=== PATIENT | male | born 1960 | race Two or more races ===

== ENCOUNTER 2024-02-22 10:23 | Inpatient (IN) | payer MEDICAID, SELFPAY ==
--- NOTE | 2024-02-22 10:40 | XR_ITS ---
Examination: Venous duplex lower extremity sonogram, bilateral. Date and time of exam: February 22, 2024 1233 hours INDICATIONS: Bilateral leg swelling and pain several months Technique: Multiple sonographic images of the deep venous system have been obtained. B-mode/2-D grayscale imaging of vascular structures and Doppler spectral analysis (waveforms) and color performed Both legs are examined. Findings: Deep venous systems do not demonstrate abnormal echogenicity. All visualized deep veins exhibit compressibility. All visualized deep veins exhibit augmentation. Impression: Negative for deep vein thrombosis
--- NOTE | 2024-02-22 10:40 | XR_ITS ---
Examination: Ultrasound-guided paracentesis Abdominal sonogram limited Date and time of exam: February 22, 2024 1208 hours INDICATIONS: Cirrhosis, increasing ascites and abdominal distention this week Informed consent provided. A timeout was completed verifying correct patient, procedure, site, positioning, and special adequate movement if applicable. Technique: Multiple sonographic images of the abdomen have been obtained. Appropriate area for paracentesis was marked. Local anesthesia is obtained with 1% lidocaine. Yueh catheter is successfully introduced. Findings: Abdominal sonographic images demonstrate sufficient ascitic fluid for paracentesis. After placing the Yueh catheter, 7200 cc of fluid were successfully removed. During and after completion of the procedure the patient appear in satisfactory and stable condition with no complications observed. Estimated blood loss 0 cc Impression: Abdominal ascites Successful ultrasound-guided paracentesis as described above
--- NOTE | 2024-02-22 10:41 | XR_ITS ---
Examination: PA lateral chest 2 views TECHNIQUE: Upright PA lateral chest 2 views Exam date and time: February 22, 2024 1057 hours INDICATIONS: Onset SOB today. FINDINGS: Normal heart size Lungs are clear. Moderate thoracic spondylosis IMPRESSION: No active disease
--- NOTE | 2024-02-22 10:41 | PD.EDRME ---
Rapid Medical Screening Exam RME Arrival date/time: 02/22/24 10:23 63-year-old male who admits to drinking alcohol daily presents to the emergency department complaint of bilateral lower extremity swelling and abdominal swelling patient was seen by his PCP to give him a course of Lasix he reports he still has swelling. Chief Complaint: General Adult/Misc Complain
[2024-02-22 10:42] VITALS: BP 132/80; PULSE 97; RESP 20; TEMP 36.7; O2SAT 98; BMI 28.8
[2024-02-22 11:26] LABS: Basophils # (Auto) 0.1 Thou/mm3 (0.0-0.2); Basophils % (Auto) 1 % (0-2.5); Eosinophils # (Auto) 0.1 Thou/mm3 (0.0-0.5); Eosinophils % (Auto) 1 % (0-10); Hematocrit 38.3 % (41.0-53.0); Hemoglobin 13.4 g/dL (13.5-16.0); Immature Granulocytes % (Auto) 1 % (0-0); Immature Granulocytes Auto 0.07 Thou/mm3 (0.00-0.00); Lymphocytes # (Auto) 0.8 Thou/mm3 (1.0-4.8); Lymphocytes % (Auto) 8 % (10-50); Mean Corpuscular Hemoglobin 31.4 pg (25.0-35.0); Mean Corpuscular Volume 90 fL (80-100); Monocytes # (Auto) 1.1 Thou/mm3 (0.0-0.8); Monocytes % (Auto) 11 % (0-12); Neutrophils # (Auto) 7.8 Thou/mm3 (1.8-7.7); Neutrophils % (Auto) 79 % (37-80); Nucleated Red Blood Cell % 0 /100 WBC (0); Platelet Count 176 Thou/mm3 (140-440); RDW Standard Deviation 47.6 fL (35.1-43.9); Red Blood Count 4.27 Miln/mm3 (4.50-5.90)
[2024-02-22 11:39] LABS: INR 1.3 (0.9-1.3); Partial Thromboplastin Time 30.8 Seconds (22.0-36.0); Prothrombin Time 13.5 Seconds (9.0-12.2)
[2024-02-22 11:50] LABS: B-Type Natriuretic Peptide 90 pg/mL (0-100)
[2024-02-22 12:04] LABS: Alanine Aminotransferase 49 U/L (10-49); Albumin, Serum 3.5 gm/dL (3.4-4.8); Albumin/Globulin Ratio 1.2 (1.2-2.2); Alkaline Phosphatase 176 U/L (46-116); Anion Gap 7 (7-16); Aspartate Amino Transferase 97 U/L (0-34); BUN/Creatinine Ratio 13 Ratio (12-20); Bilirubin,Total 3.5 mg/dL (0.3-1.2); Blood Urea Nitrogen < 5 mg/dL (9-23); Calcium 8.4 mg/dL (8.3-10.6); Calcium (Corrected) 8.8 mg/dL (8.5-10.1); Carbon Dioxide 25.8 mMol/L (20.0-31.0); Chloride 86 mMol/L (98-107); Creatinine (Component) 0.4 mg/dL (0.6-1.3); Estimated Creatinine Clearance 194.1 mL/min (>60); Globulin 2.9 gm/dL (2.3-3.5); Glucose 89 mg/dL (74-106); Osmolality,Calculated 236 (275-295); Potassium 3.6 mMol/L (3.4-5.1); Total Protein 6.4 gm/dL (5.7-8.2); eGFR > 60 See Note
[2024-02-22 12:08] LABS: Sodium 119 mMol/L (136-145)
[2024-02-22 13:35] VITALS: BP 126/69; PULSE 90; RESP 19; TEMP 37; O2SAT 96
--- NOTE | 2024-02-22 13:48 | PD.EDADULT ---
ED General RME/HPI General Chief complaint: General Adult/Misc Complain Stated complaint: SWOLLEN CAN'T WORK Arrival date/time: 02/22/24 10:23 RME / HPI RME / HPI narrative: 02/22/24 10:23 63-year-old male with chronic alcohol use and tobacco use hx drinking presented to the hospital's ED on 02/22/24 with complaint of bilateral lower extremity swelling and abdominal swelling. Patient was seen by his PCP to give him a course of Lasix he reports he still has swelling. His chief complaint is that he has been show swollen over the past week that he has not been able to walk well patient also states that he received MiraLAX but this did not resolve his abdominal swelling. Patient states that he noticed that his eyes looked a little yellow than usual once again as well. Patient denies headache, fever, chills, chest pain, palpitation, shortness of breath, dizziness, nausea, or vomiting.Patient denies any allergies. Patient denies taking any medications. Patient states that he has had a chronic drinking history of 40+ years. He also endorses a chronic smoking history of [id number] history. MD complaint: Bilateral extremity swelling- lower extremities Onset (ago): week(s) Location: lower extremity Severity: severe Relieving factors: none Related Data Home Medications ?Medication ?Instructions ?Recorded ?Confirmed naltrexone 50 mg tablet 50 mg PO QDAY 02/23/24 02/23/24 Previous Rx's ?Medication ?Instructions ?Recorded folic acid 1 mg tablet 1 mg PO BID 60 days #120 tabs 02/24/24 nicotine 21 mg/24 hr daily 21 mg top QDAY 30 days #30 ea 02/24/24 transdermal patch nystatin 100,000 unit/gram topical 1 applic topical BID 3 days #15 02/24/24 cream grams thiamine mononitrate (vit B1) 100 100 mg PO BID 60 days #120 tabs 02/24/24 mg tablet Allergies Allergy/AdvReac Type Severity Reaction Status Date / Time No Known Allergies Allergy Verified 02/22/24 10:29 Review of Systems Review of Systems Systems Reviewed: All systems reviewed, normal except as documented ED Exam Narrative Physical exam: Constitutional: Estonian speaking male, well-nourished, in no acute distress, lying in bed, icteric. HEENT: NCAT, EOMI, reactive round pupils b/l, patent nares b/l, moist mucous membranes, on room air. Lung: CTAB, wheezing noted b/l all lung lobes, ++crackles. Heart: Regular S1S2, no murmurs, gallops, or rubs Abdomen: full distended, tender. ++ Ascites fluid wave Extremities: No cyanosis, clubbing, 2+ pitting edema of b/l legs, LE pulses present b/l Neurologic: No focal sensory or motor deficits noted, AOx3, appropriate affect Skin: Warm, dry, no lesions or rashes noted Course Quality Measures none Orders Category Date Time Status CT Screening NOW Care 02/22/24 16:[address] abdomen pelvis w con Stat Exams 02/22/24 16:48 Completed US paracentesis abd w/image Stat Exams 02/22/24 10:40 Completed US venous doppler LE BI Stat Exams 02/22/24 10:40 Completed XR chest 2V Stat Exams 02/22/24 10:41 Completed BNP [B-Type Natriuretic Peptide] Stat Lab 02/22/24 11:10 Completed CBC Stat Lab 02/22/24 11:10 Completed Chloride,Urine Random Routine Lab 02/22/24 16:57 Completed Comprehensive Metabolic Panel Stat Lab 02/22/24 11:10 Completed Creatinine,Random Urine Routine Lab 02/22/24 16:57 Completed Osmolality, Urine* Routine Lab 02/22/24 16:57 Received Partial Thromboplastin Time Stat Lab 02/22/24 11:10 Completed Potassium,Urine Random Routine Lab 02/22/24 16:57 Completed Prothrombin Time with INR Stat Lab 02/22/24 11:10 Completed SODIUM NA URINE [Sodium,Urine Random] Routine Lab 02/22/24 16:57 Completed Urinalysis Stat Lab 02/22/24 16:57 Completed Dextrose 5%-Ns [D5-Ns] 1,000 ml Med 02/22/24 16:30 Discontinued IV 75 mls/hr Dextrose 5%-Ns [D5-Ns] 1,000 ml Med 02/22/24 16:30 Discontinued IV 75 mls/hr Dextrose 5%-Water [D5w] 1,000 ml Med 02/22/24 15:15 Discontinued IV 75 mls/hr Lidocaine 1% Pf 30 ml [Xylocaine 1% Pf 30 ml] Med 02/22/24 12:08 Discontinued 30 ml .ROUTE .STK-MED ONE Vital Signs Vital signs: Vital Signs Temperature 98.0 F 02/22/24 10:42 Pulse Rate 97 02/22/24 10:42 Respiratory Rate 20 02/22/24 10:42 Blood Pressure 132/80 H 02/22/24 10:42 Pulse Oximetry (%) 98 02/22/24 10:42 Oxygen Delivery Method Room Air 02/22/24 10:42 [facility] Patient data External records reviewed:: [facility] previous records and None Clinical information provided by:: patient Social determinants that could affect healthcare access:: none Patient has the following chronic illnesses:: H/o Chronic alcohol use and chronic tobacco use How is presenting disease/condition affected by chronic disease/condition?: caused by Evaluation data The following diagnostics were reviewed and interpreted by me:: lab results and radiology exam(s) Lab and/or radiology exams considered but not ordered:: None Interpretation Summary: Hyponatremia sodium 119. Chest x-ray showed no active disease. Venous Doppler ultrasound bilateral lower extremities negative for DVT. Paracentesis was done with removal of 7200 cc of fluid successfully. Medications Medications considered but not ordered:: NOne Medication administrations:: Medication Administration History Acetaminophen (Acetaminophen 325 Mg Tablet) 650 mg PO Q6H PRN PRN Reason: Fever >100.4 Stop: 03/23/24 17:35 Acetaminophen (Acetaminophen 325 Mg Tablet) 650 mg PO Q6H PRN PRN Reason: PAIN SCALE 1-3 (mild Stop: 03/23/24 17:35 Hydrocodone Bitart/Acetaminophen (Hydrocodone/Apap 10/325 Tab) 1 tab PO Q4H PRN PRN Reason: PAIN SCALE 4-6 (Moderate Stop: 02/27/24 17:35 Albuterol/Ipratropium (Albuterol/Ipratropium (Duoneb) Rt Mallory 3 Ml Nebu) 3 ml INH Q2HR PRN PRN Reason: SHORTNESS OF BREATH OR WHEEZE Stop: 03/23/24 17:35 Folic Acid (Folic Acid 1 Mg Tablet) 1 mg PO BID JAMMIE Stop: 02/27/24 20:59 Last Admin: 02/24/24 09:19 Dose: 1 mg Documented By: Admin: 02/23/24 20:39 Dose: 1 mg Documented By: Admin: 02/23/24 08:10 Dose: 1 mg Documented By: Admin: 02/22/24 20:17 Dose: 1 mg Documented By: LUIS E Heparin Sodium (Porcine) (Heparin Sod Inj 5000 Unit/Ml Vial) 5,000 unit SC Q12HR [facility] Stop: 03/07/24 17:44 Last Admin: 02/23/24 20:39 Dose: 5,000 unit Documented By: CATHERINE Co-signed By: LUIS CARLOS Magnesium Sulfate (Magnesium Sulfate Ivpb) 2 gm in 50 mls @ 25 mls/hr IV X1 ONE Stop: 02/24/24 10:11 Last Admin: 02/24/24 09:17 Dose: 25 mls/hr Documented By: PETER Lactulose (Lactulose Syrup 20 Gm/30 Ml Udc) 10 gm PO BID [facility]; Protocol Stop: 03/23/24 20:59 Last Admin: 02/24/24 09:20 Dose: 10 gm Documented By: Admin: 02/23/24 20:39 Dose: 10 gm Documented By: Admin: 02/23/24 08:11 Dose: 10 gm Documented By: Admin: 02/22/24 20:17 Dose: 10 gm Documented By: LUIS E Lorazepam (Lorazepam 0.5 Mg Tablet) 0.5 mg PO Q4HR PRN PRN Reason: CIWA Score 2-6 Stop: 02/27/24 17:41 Lorazepam (Lorazepam 0.5 Mg Tablet) 1 mg PO Q4HR PRN PRN Reason: CIWA SCORE 7-11 Stop: 02/27/24 17:41 Lorazepam (Lorazepam 0.5 Mg Tablet) 2 mg PO Q4HR PRN PRN Reason: CIWA SCORE 12-15 Stop: 02/27/24 17:41 Lorazepam (Lorazepam 2 Mg/Ml Vial) 2 mg IV Q2HR PRN PRN Reason: CIWA SCORE 20-25 Stop: 02/27/24 17:41 Morphine Sulfate (Morphine Sulf Inj 10 Mg/Ml Vial) 1 mg IVP Q4H PRN PRN Reason: PAIN SCALE 7-10 (Severe Stop: 02/27/24 17:35 Nicotine (Nicotine Patch 21 Mg/24 Hr Patch.Td24) 21 mg TOP QDAY [facility] Stop: 03/23/24 17:44 Last Admin: 02/24/24 09:20 Dose: 21 mg Documented By: Admin: 02/23/24 08:11 Dose: 21 mg Documented By: Admin: 02/22/24 20:05 Dose: 21 mg Documented By: LUIS E Nystatin (Nystatin Oint 30 Gm Tube) 0 gm TOP BID [facility] Stop: 03/01/24 10:29 Last Admin: 02/23/24 20:47 Dose: 1 applicatio Documented By: Admin: 02/23/24 11:49 Dose: 1 applicatio Documented By: GONSALO Comments: Rash on groin Ondansetron HCl (Ondansetron Inj 2 Mg/Ml Inj 2 Ml) 4 mg IV Q6H PRN; Protocol PRN Reason: NAUSEA OR VOMITING Stop: 03/23/24 17:35 Pantoprazole Sodium (Pantoprazole 40 Mg Tablet) 40 mg PO QDAY [facility] Stop: 03/23/24 17:44 Last Admin: 02/24/24 09:19 Dose: 40 mg Documented By: Admin: 02/23/24 08:11 Dose: 40 mg Documented By: Admin: 02/22/24 18:28 Dose: 40 mg Documented By: TORIN Thiamine HCl (Thiamine 100 Mg Tablet) 100 mg PO BID [facility] Stop: 02/27/24 20:59 Last Admin: 02/24/24 09:18 Dose: 100 mg Documented By: Admin: 02/23/24 20:39 Dose: 100 mg Documented By: Admin: 02/23/24 08:11 Dose: 100 mg Documented By: Admin: 02/22/24 20:17 Dose: 100 mg Documented By: LUIS E Discontinued Medications Furosemide (Furosemide Inj 10 Mg/Ml 4ml Vial) 40 mg IVP X1 ONE Stop: 02/23/24 08:49 Last Admin: 02/23/24 10:25 Dose: 40 mg Documented By: GONSALO Furosemide (Furosemide Inj 10 Mg/Ml 4ml Vial) 40 mg IVP X1 ONE Stop: 02/24/24 08:50 Last Admin: 02/24/24 09:19 Dose: 40 mg Documented By: PETER Heparin Sodium (Porcine) (Heparin Sod Inj 5000 Unit/Ml Vial) 5,000 unit SC Q12H [facility] Stop: 03/07/24 17:44 Last Admin: 02/23/24 05:21 Dose: 5,000 unit Documented By: ELOY Co-signed By: PALOMO Admin: 02/22/24 18:29 Dose: 5,000 unit Documented By: TORIN Co-signed By: DO Dextrose (D5w) 1,000 mls @ 75 mls/hr IV .[id number] JAMMIE Stop: 03/23/24 15:14 Last Admin: 02/22/24 16:22 Dose: Not Given Documented By: TORIN Non-Admin Reason: Discontinued Dextrose/Sodium Chloride (D5-Ns) 1,000 mls @ 75 mls/hr IV .[id number] JAMMIE Stop: 03/23/24 16:29 Dextrose/Sodium Chloride (D5-Ns) 1,000 mls @ 75 mls/hr IV .[id number] JAMMIE Stop: 02/23/24 16:29 Last Admin: 02/22/24 16:27 Dose: 75 mls/hr Documented By: TORIN Comments: med not scanning. verified with kymberly SIMMONS. Albumin Human (Albuminar-25 Ivpb) 25 gm in 100 mls @ 100 mls/hr IV QDAY ONE Stop: 02/22/24 18:45 Last Infusion: 02/22/24 21:35 Dose: Infused Documented By: Admin: 02/22/24 18:25 Dose: 100 mls/hr Documented By: TORIN Albumin Human (Albuminar-25 Ivpb) 25 gm in 100 mls @ 100 mls/hr IV QDAY JAMMIE Stop: 02/22/24 19:59 Last Infusion: 02/22/24 21:33 Dose: Infused Documented By: Admin: 02/22/24 20:06 Dose: 100 mls/hr Documented By: MUSA Dextrose (D5w) 500 mls @ 999 mls/hr IV .Q31M JAMMIE Stop: 02/22/24 23:30 Last Admin: 02/23/24 19:00 Dose: Not Given Documented By: GONSALO Non-Admin Reason: Duplicate Medication on eMAR Dextrose (D5w) 500 mls @ 100 mls/hr IV .Q5H JAMMIE Stop: 02/23/24 06:29 Dextrose/Sodium Chloride (D5-Ns) 500 mls @ 100 mls/hr IV .Q5H JAMMIE Stop: 02/23/24 06:59 Last Infusion: 02/23/24 19:47 Dose: Infused Documented By: Admin: 02/23/24 02:32 Dose: 100 mls/hr Documented By: ELOY Dextrose/Sodium Chloride (D5-Ns) 500 mls @ 200 mls/hr IV .Q2H30M [facility] Stop: 02/23/24 05:57 Dextrose/Sodium Chloride (D5-Ns) 500 mls @ 250 mls/hr IV .Q2H JAMMIE Stop: 02/23/24 05:32 Last Infusion: 02/23/24 19:47 Dose: Infused Documented By: Admin: 02/23/24 03:40 Dose: 250 mls/hr Documented By: BR Magnesium Sulfate (Magnesium Sulfate Ivpb) 2 gm in 50 mls @ 25 mls/hr IV X1 ONE Stop: 02/23/24 09:56 Last Infusion: 02/23/24 19:47 Dose: Infused Documented By: Admin: 02/23/24 08:12 Dose: 25 mls/hr Documented By: BM Albumin Human (Albuminar-25 Ivpb) 25 gm in 100 mls @ 100 mls/hr IV X1 ONE Stop: 02/23/24 09:46 Last Infusion: 02/23/24 19:47 Dose: Infused Documented By: Admin: 02/23/24 11:49 Dose: 100 mls/hr Documented By: BM Albumin Human (Albuminar-25 Ivpb) 25 gm in 100 mls @ 100 mls/hr IV X1 ONE Stop: 02/23/24 09:47 Last Infusion: 02/23/24 19:47 Dose: Infused Documented By: Admin: 02/23/24 10:27 Dose: 100 mls/hr Documented By: BM Lidocaine HCl (Lidocaine Inj Pf 1% 30 Ml Vial) Confirm Administered Dose 30 ml .ROUTE .STK-MED ONE Stop: 02/22/24 12:09 Last Admin: 02/22/24 20:25 Dose: 30 ml Documented By: EE Potassium Chloride (Potassium Chloride 20 Meq Tabcr) 40 meq PO X1 ONE Stop: 02/23/24 06:44 Last Admin: 02/23/24 07:44 Dose: 40 meq Documented By: BM Potassium Chloride (Potassium Chloride 20 Meq Tabcr) 20 meq PO X1 ONE Stop: 02/23/24 09:01 Last Admin: 02/23/24 10:26 Dose: 20 meq Documented By: BM Potassium Chloride (Potassium Chloride 20 Meq Tabcr) 20 meq PO X1 ONE Stop: 02/23/24 16:24 Last Admin: 02/23/24 16:39 Dose: 20 meq Documented By: GONSALO Potassium Chloride (Potassium Chloride 20 Meq Tabcr) 20 meq PO X1 ONE Stop: 02/24/24 08:13 Last Admin: 02/24/24 09:18 Dose: 20 meq Documented By: PETER D5W, D 5 NS, lidocaine Consultations Consultation(s) initiated? (list below): No Diagnosis Differential Diagnosis ED Complaint MDM: Acute on chronic Liver disease Most likely diagnosis given after review of the tests above:: Hyponatremia Admission Indicated Admission indicated?: indicated Explain why admission is indicated or not indicated:: Patient has a chief complaint is swollen lower extremities bilaterally. Patient does not show any active signs of infection including fever, chills, shortness of breath, chest pain, palpitations, nausea or vomiting. However, patient does have hyponatremia of 119, likely secondary to beer potomania in the setting of extensive alcohol use. He required a paracenthesis with successful removal of 7200cc fluids. He requires further management by inpatient staff including albumin. CT abdomen pelvis is also ordered as requested by primary medicine team. Admission Request Was there a request for admission?: Yes Admission Attestation Admission request attestation: Discussed case with [] from Hospitalist service regarding admission. Discussed patients ED course, exam findings, labs, and radiology results. The Hospitalist [agrees,declines] to accept the patient for admission. Disposition Plan Disposition Plan: Admit Medical Decision Making MDM Narrative MDM Narrative: 63-year-old male with chronic alcohol use and tobacco use hx drinking presented to the hospital's ED on 02/22/24 with complaint of bilateral lower extremity swelling and abdominal swelling. Patient was seen by his PCP to give him a course of Lasix he reports he still has swelling. His chief complaint is swollen lower extremities bilaterally. Patient did not show any active signs of infection including fever, chills, shortness of breath, chest pain, palpitations, nausea or vomiting. However patient did have hyponatremia of 119, likely secondary to beer potomania in the setting of extensive alcohol use. Patient will require admission for management of fluid overload state and hyponatremia. Differential Diagnosis Differential Diagnosis: Acute on chronic Liver disease Lab Data 02/24/24 05:30 02/24/24 05:30 Labs: Lab Results 02/22/24 02/22/24 Range/Units 11:10 16:57 WBC 10.0 (3.8-10.6) Thou/mm3 RBC 4.27 L (4.50-5.90) Miln/mm3 Hgb 13.4 L (13.5-16.0) g/dL Hct 38.3 L (41.0-53.0) % MCV 90 (80-100) fL MCH 31.4 (25.0-35.0) pg MCHC 35.0 (31.0-37.0) g/dl RDW Std Deviation 47.6 H (35.1-43.9) fL Plt Count 176 (140-440) Thou/mm3 Neut % (Auto) 79 (37-80) % Lymph % (Auto) 8 L (10-50) % [place] % (Auto) 11 (0-12) % Eos % (Auto) 1 (0-10) % Baso % (Auto) 1 (0-2.5) % Neut # (Auto) 7.8 H (1.8-7.7) Thou/mm3 Lymph # (Auto) 0.8 L (1.0-4.8) Thou/mm3 [place] # (Auto) 1.1 H (0.0-0.8) Thou/mm3 Eos # (Auto) 0.1 (0.0-0.5) Thou/mm3 Baso # (Auto) 0.1 (0.0-0.2) Thou/mm3 Immature Gran # (Auto) 0.07 H (0.00-0.00) Thou/mm3 Absolute Nucleated RBC 0.00 (0.00-0.00) Thou/mm3 Immature Gran % 1 H (0-0) % Nucleated RBC % 0 (0) /100 WBC PT 13.5 H (9.0-12.2) Seconds INR 1.3 (0.9-1.3) APTT 30.8 (22.0-36.0) Seconds Sodium 119 L* (136-145) mMol/L Potassium 3.6 (3.4-5.1) mMol/L Chloride 86 L (98-107) mMol/L Carbon Dioxide 25.8 (20.0-31.0) mMol/L Anion Gap 7 (7-16) BUN < 5 L (9-23) mg/dL Creatinine 0.4 L (0.6-1.3) mg/dL Estim Creat Clear Calc 194.1 (>60) mL/min eGFR > 60 (60 - ) See Note BUN/Creatinine Ratio 13 (12-20) Ratio Glucose 89 (74-106) mg/dL Calculated Osmolality 236 L (275-295) Calcium 8.4 (8.3-10.6) mg/dL Corrected Calcium 8.8 (8.5-10.1) mg/dL Total Bilirubin 3.5 H (0.3-1.2) mg/dL AST 97 H (0-34) U/L ALT 49 (10-49) U/L Alkaline Phosphatase 176 H (46-116) U/L B-Natriuretic Peptide 90 (0-100) pg/mL Total Protein 6.4 (5.7-8.2) gm/dL Albumin 3.5 (3.4-4.8) gm/dL Globulin 2.9 (2.3-3.5) gm/dL Albumin/Globulin Ratio 1.2 (1.2-2.2) Ur Collection Type Clean Catch Urine Color Yellow (Lt Yel-Yel) Urine Clarity Turbid A (Clear/Hazy) Urine pH 6.5 (5.0-7.0) Ur Specific [place] 1.005 (1.001-1.035) Urine Protein Negative (Neg - Trace) Urine Glucose (UA) Negative (Negative) Urine Ketones Negative (Negative) Urine Blood Negative (Negative) Urine Nitrite Negative (Negative) Urine Bilirubin Negative (Negative) Urine Urobilinogen (Auto) 8.0 (0.0-1.0) mg/dL Ur Leukocyte Esterase Negative (Negative) Urine RBC 1 (0-3) /hpf Urine WBC 3 (0-5) /hpf Ur Squamous Epith Cells < 1 (0-5) /hpf Urine Bacteria Rare (None) Ur Random Creatinine 35 (30-125) mg/dL Ur Random Sodium < 10.0 L (20.0-110.0) mMol/L Ur Random Potassium < 10 L (12-62) mMol/L Ur Random Chloride < 20.0 L (55.0-125.0) mMol/L Critical Care Time Critical Care Time Critical Care Time: Yes Total Critical Care Time (min.): 35 Attestation: Excluding billable procedures for the rapid response, analysis, management, treatment, and documentation to vent the very possible risk of metabolic decompensation and or . Discharge Plan Plan Patient Disposition: Admit Acute Care w/in Hospital Problem List Clinical Impression: Acute hyponatremia, Fluid overload, Alcoholic cirrhosis of liver MD Attestation MD Attestation The patient was seen by the PGY-2. I, the supervising physician, also encountered and examined the patient while remaining present during the entire ER visit. I was available for consultation as needed. Working with the PGY 2, management, treatment plan, and documentation were formulated. I agree with the plan and documentation.
--- NOTE | 2024-02-22 14:30 | PC.NURSE ---
in to assess pt. pt resting quietly at this time with c/o swelling. pt is sp paracentesis, v/s assessed and stable. call light is within reach. plan of care ongoing.
[2024-02-22 15:32] VITALS: BP 105/58; PULSE 84; RESP 19; TEMP 36.8; O2SAT 91
[2024-02-22] MEDS: DEXTROSE 5%-NS 1,000 ML 75 ML IV (16:27)
--- NOTE | 2024-02-22 16:44 | PC.NURSE ---
PTS FRIEND NIGEL HERE TO VISIT, PT REQUEST THAT HE COME BACK TO VISIT.
--- NOTE | 2024-02-22 16:48 | XR_ITS ---
Examination: CT abdomen with intravenous contrast CT pelvis with intravenous contrast 2-D coronal reconstructions 2-D sagittal reconstructions Date and time of exam:February 22, 2024 1803 hrs. Indications: Generalized bloating and abdominal pain beginning 3 months ago worse the last month CTDI: vol (mGy) 10.1 DLP: (mGycm) 701 Technique: Multiple axial sections of the abdomen and pelvis have been obtained. 64 slice high-resolution scanner used. 3 mm axial sections have been obtained, post intravenous injection 60 cc [id number] 2-D sagittal, coronal reconstructions obtained. Low dose protocols were performed. One or more of the following dose reduction techniques were used; automated exposure control, adjustment of the mA and/or KV according to patient size, use of iterative reconstruction technique. Findings: Mild liver nodular in contour Moderate ascites Gallbladder wall is thickened but again the patient has ascites Spleen is not enlarged There are portosystemic collateral vessels medial to the spleen No pancreatic mass Normal adrenal glands No renal or ureteral calculi, no hydronephrosis No bowel obstruction Diffuse thickening of the colonic proctor, hepatic colopathy pattern Partial visualization normal size appendix Small bowel loops also show diffuse wall thickening Urinary bladder intact No significant prostatomegaly Moderate lumbar spondylosis with advanced disc narrowing T12-L1 Impression: Cirrhosis Moderate ascites Portal hypertension Hepatic colopathy, hepatic enteropathy
[2024-02-22 17:32] LABS: Collection Type, Urine Clean Catch
--- NOTE | 2024-02-22 17:55 | ESHP_ITS ---
<Statement entered by Danny Perez MD - 02/22/24 18:09> This patient 63-year-old male with past medical history of alcohol use disorder, liver cirrhosis, post paracentesis and no other significant past medical history presented to the ED today with chief complaint of abdominal swelling and lower extremity edema. He denied any nausea vomiting, or any blood in the stool. No other signs symptoms. He is alert and oriented x 3. Patient underwent paracentesis today and 7 L fluid was removed in the morning. Patient was feeling better after paracentesis. Vitals were stable. Labs were significant for hyponatremia with sodium 119 and hypoosmolarity. Coagulation panel showed INR within normal limits. UA was turbid and unremarkable. U tox pending. Urine electrolytes pending. Nephrology has been consulted for hyponatremia and will likely follow-up on sodium Q4 hourly, goal of sodium correction 4-6 mEq in first 24 hours and fluid restrict him and DC'd D5 half NS. Patient is placed on CIWA protocol for alcohol withdrawal symptoms as his last drink of alcohol was yesterday. Patient was counseled to do alcohol cessation completely given the fact that he is developing signs symptoms of liver cirrhosis now and can end up in liver failure eventually. Patient's friend was at the bedside and he was explained that patient needs to stop drinking alcohol completely. Patient also has a 40-year pack history of smoking and placed on nicotine patch as well. We are transfusing albumin post paracentesis 50 g x 1. Will likely follow-up on nephrology recommendations. Hep panel was ordered. Chemistry panel showed elevated T. bili 3.5 therefore we will follow-up with CT abdomen pelvis without contrast. All labs and orders were reviewed. I saw and examined the patient, and I agree with current management stated by Dr Lorenzo MD,PGY1. Plan of care was discussed with the attending physician and resident physician. Disclaimer: Despite multiple revisions, due to the dictation software being used, the document bellow may not be free of grammatical errors including phonetic/typographic errors. However, this does not deter from our commitment to providing health care in the patient's best interest in mind. Dr. Constantino MD, PGY 2 Documentation for date of: 02/22/24 HPI History of Present Illness Chief complaint: Leg Swelling and Abdomen swelling History of present illness: HPI: Patient is a 63-year-old male with no past medical history. He has no PCP and has never seen a doctor in his life. Patient presented today with a chief complaint of leg swelling and abdominal distention. He states that for over the past month and a half he started to notice lower extremity swelling and abdominal distention which progressively worsened. Around 2 weeks ago he presented to [facility] who prescribed him Lasix 40 Mg p.o. daily which initially helped with his edema but then it got worse. This prompted him to present to the ED today for a checkup. He denies any chest pain,/pressure or SOB, orthopnea, PND. Also denies any cough, fever, chills or sick contacts. Also denies any nausea, vomiting or abdominal pain. Of note he also reports decreased appetite over the month and a half as well as an approximate 30 pound weight loss. ED course: BP 132/80, HR 97, RR?20, T?98F, SpO2 98% on RA. Labs significant for NA 119, K3.6, CL 86, BUN <5, CR 0.4, T.bili 3.5, AST 97, ALT 49, ALP 176. Chest x-ray showed no signs of consolidation, pulmonary edema or pleural effusion. Lower extremity Doppler was also negative for any thrombosis. Patient had therapeutic paracentesis done earlier today which drained 7.2L of fluid. Patient to be admitted for treatment and management of severe hyponatremia. Medication list: ? Lasix 40 Mg p.o. daily Review of Systems Review of Systems Narrative Review of Systems: GENERAL: Denies fever/chills or diaphoresis. HEENT: Denies headaches or visual changes. Denies discharge. Neuro: Denies unusual weakness or difficulty speaking. CARDIO: as above PULM: as above GI: As above URO: Denies buring/itching/pain/urinary changes. MSK/EXT/SKIN: Denies joint/skeletal/muschle pain, issues/changes in upper or lower extremities, itchiness, or superficial pain. PSYCH: Cooperative, pleasant mood & affect. The rest of the review of systems is otherwise negative. Past Medical History Past Medical History Comments [facility] COMMENT: Past medical history: ?Decompensated alcoholic cirrhosis ? Chronic alcohol use ? Nicotine dependence ? 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 Feeds chickens and does chores around house Education Level: Patient attended high school in [place], did not graduate Marital Status: and has one 24-year-old daughter Tobacco use: Approximately 30?[id number] smoking history. Smokes 1.5 packs a day ETHO use: More than 40 years alcohol use. Drinks between 12-18 cans of beer per day Illicit drug use: Denies Social History Note: lives with friends in [place]. Last time he had sex was 10 years ago Family History: No significant family history. His father is still alive at age 96 Exam Vital Signs Temp Pulse Resp BP Pulse Ox O2 Del Method 98.3 F 84 19 105/58 L 91 L Room Air 02/22/24 15:32 02/22/24 15:32 02/22/24 15:32 02/22/24 15:32 02/22/24 15:32 02/22/24 15:32 Narrative Exam Constitutional Alert, oriented x 3 and comfortable. Elderly male, temporal wasting, cachectic HEENT Vision grossly intact. Patent nares. Trachea midline Respiratory Chest normal on inspection and poor inspiratory effort, polyphonic wheeze heard throughout lung milner. Cardiovascular S1 and S2 audible, RRR. No murmurs carotid bruit. No gross JVD. Abdominal Distended and non tender to palpation in all quadrants. BS +. Bandage from paracentesis noted in right lower quadrant Genitourinary No bladder tenderness, no flank pain. Normal to palpation Musculoskeletal Extremities tone within normal limits. 4+ lower extremity edema up to mid thighs Neurological CN II - XII grossly intact. Extremity motor and sensation grossly intact. Skin Warm, dry and intact. Erythematous rash in groin area Psychiatric Patient has good affect, is cooperative Results: Labs 02/22/24 11:10 02/22/24 21:47 Labs: Short CBC 02/22/24 Range/Units 11:10 WBC 10.0 (3.8-10.6) Thou/mm3 Hgb 13.4 L (13.5-16.0) g/dL Hct 38.3 L (41.0-53.0) % Plt Count 176 (140-440) Thou/mm3 BMP 02/22/24 11:10 Sodium 119 L* Potassium 3.6 Chloride 86 L Carbon Dioxide 25.8 BUN < 5 L Creatinine 0.4 L Glucose 89 Calcium 8.4 Liver Function 02/22/24 Range/Units 11:10 Total Bilirubin 3.5 H (0.3-1.2) mg/dL AST 97 H (0-34) U/L ALT 49 (10-49) U/L Alkaline Phosphatase 176 H (46-116) U/L Albumin 3.5 (3.4-4.8) gm/dL Quality Measures Quality Measures none Medications Home Medications and Allergies Allergies Allergy/AdvReac Type Severity Reaction Status Date / Time No Known Allergies Allergy Verified 02/22/24 10:29 Visit Medications Acetaminophen (Acetaminophen 325 Mg Tablet) 650 mg PO Q6H PRN PRN Reason: Fever >100.4 Stop: 03/23/24 17:35 Acetaminophen (Acetaminophen 325 Mg Tablet) 650 mg PO Q6H PRN PRN Reason: PAIN SCALE 1-3 (mild Stop: 03/23/24 17:35 Hydrocodone Bitart/Acetaminophen (Hydrocodone/Apap 10/325 Tab) 1 tab PO Q4H PRN PRN Reason: PAIN SCALE 4-6 (Moderate Stop: 02/27/24 17:35 Albuterol/Ipratropium (Albuterol/Ipratropium (Duoneb) Rt Mallory 3 Ml Nebu) 3 ml INH Q2HR PRN PRN Reason: SHORTNESS OF BREATH OR WHEEZE Stop: 03/23/24 17:35 Folic Acid (Folic Acid 1 Mg Tablet) 1 mg PO BID JAMMIE Stop: 02/27/24 20:59 Heparin Sodium (Porcine) (Heparin Sod Inj 5000 Unit/Ml Vial) 5,000 unit SC Q12H JAMMIE Stop: 03/07/24 17:44 Albumin Human (Albuminar-25 Ivpb) 25 gm in 100 mls @ 100 mls/hr IV QDAY ONE Stop: 02/22/24 18:45 Albumin Human (Albuminar-25 Ivpb) 25 gm in 100 mls @ 100 mls/hr IV QDAY JAMMIE Stop: 02/25/24 18:59 Lactulose (Lactulose Syrup 20 Gm/30 Ml Udc) 10 gm PO BID JAMMIE; Protocol Stop: 03/23/24 20:59 Lorazepam (Lorazepam 0.5 Mg Tablet) 0.5 mg PO Q4HR PRN PRN Reason: CIWA Score 2-6 Stop: 02/27/24 17:41 Lorazepam (Lorazepam 0.5 Mg Tablet) 1 mg PO Q4HR PRN PRN Reason: CIWA SCORE 7-11 Stop: 02/27/24 17:41 Lorazepam (Lorazepam 0.5 Mg Tablet) 2 mg PO Q4HR PRN PRN Reason: CIWA SCORE 12-15 Stop: 02/27/24 17:41 Lorazepam (Lorazepam 2 Mg/Ml Vial) 2 mg IV Q2HR PRN PRN Reason: CIWA SCORE 20-25 Stop: 02/27/24 17:41 Morphine Sulfate (Morphine Sulf Inj 10 Mg/Ml Vial) 1 mg IVP Q4H PRN PRN Reason: PAIN SCALE 7-10 (Severe Stop: 02/27/24 17:35 Nicotine (Nicotine Patch 21 Mg/24 Hr Patch.Td24) 21 mg TOP QDAY [facility] Stop: 03/23/24 17:44 Ondansetron HCl (Ondansetron Inj 2 Mg/Ml Inj 2 Ml) 4 mg IV Q6H PRN; Protocol PRN Reason: NAUSEA OR VOMITING Stop: 03/23/24 17:35 Pantoprazole Sodium (Pantoprazole 40 Mg Tablet) 40 mg PO QDAY [facility] Stop: 03/23/24 17:44 Thiamine HCl (Thiamine 100 Mg Tablet) 100 mg PO BID [facility] Stop: 02/27/24 20:59 Discontinued Medications Dextrose (D5w) 1,000 mls @ 75 mls/hr IV .[id number] [facility] Stop: 03/23/24 15:14 Last Admin: 02/22/24 16:22 Dose: Not Given Dextrose/Sodium Chloride (D5-Ns) 1,000 mls @ 75 mls/hr IV .[id number] [facility] Stop: 03/23/24 16:29 Dextrose/Sodium Chloride (D5-Ns) 1,000 mls @ 75 mls/hr IV .[id number] [facility] Stop: 02/23/24 16:29 Last Admin: 02/22/24 16:27 Dose: 75 mls/hr Assessment & Plan Plan Patient is a 63-year-old male with no past medical history. He has no PCP and has never seen a doctor in his life. Patient presented today with a chief complaint of leg swelling and abdominal distention. Patient to be admitted for treatment and management of severe hyponatremia. 1. Severe Hypotonic Asymptomatic acute on chronic hyponatremia 2. Hypochloremia On admission patient's NA 119. Osm 236 DDx: Beer Poto mejia, primary polydipsia, hypervolemia secondary to decompensated cirrhosis, SIADH, pancreatitis, CHF BNP was 90. CHF unlikey Patient has a significant alcohol use history drinks beers daily. Most likely differential beer Poto mejia. Will order urine electrolytes and osmolality to further assess and rule out other etiologies. Also possibly secondary to poor oral intake and lasix use Plan: ? 1500 cc/day fluid restriction ? Sodium checks Q4 hourly ? Urine electrolytes and osmolality ordered - Uric Acid ordered ? Goal of sodium correction 4-6 mmol / 24 hours. Not to exceed 8 mL normal in any 24-hour period. ? Nephrology was consulted. Appreciate recommendations 3. Likely Decompensated alcoholic liver cirrhosis with ascites Patient had lower extremity and abdominal swelling for the past month and a half. He was prescribed Lasix by [facility] which initially helped but then the swelling started to get worse. On exam patient has 4+ pitting edema to mid thighs and severe abdominal distention. Meld?NA score: 24 points; 14-15% 90-day mortality Child?Vincent score : 10 points. Child class C. Life expectancy 1-3 years. T. bili 3.5 on admission, AST 97, ALT 49, ALP 176. PT elevated at 15.5. Patient has therapeutic paracentesis with drain 7.2 L of fluid and was repleted with 50 g albumin. Plan: ? Regular diet with 1500 cc fluid restriction ? Hepatitis panel ordered ? Lactulose 10 g p.o. twice daily for hepatic encephalopathy prophylaxis. Titrate to achieve 2-3 bowel movements per day ? Patient counseled on alcohol cessation. He agreed to stop ? Outpatient consult for possible liver transplant 4. Alcohol dependence 5. Nicotine dependence Patient has approximately 34-ykto-euls smoking history and currently smokes 1.5 packs of cigarettes per day. Patient also has more than 40 years of alcohol use history and drinks approximately 12?18 beers per day. Patient's last drink was approximately 2 days ago and he is at high risk of alcohol withdrawal and possible delirium tremens. Plan: ? CIWA protocol ? Nicotine patch 21 Mg topical for 1 week ? Patient extensively counseled on alcohol and smoking cessation. Patient agreed. 6. Hyperbilirubinemia On admission T.bili 3.5 Possibly secondary to decompensated alcoholic cirrhosis. Plan: ? Monitor Bili Health maintenance: Disposition: Na checks Q 4 hrly. CIWA prtocol Diet: Regular with 1500cc Fluid restriction Lines: pIVs GI Prophylaxis: Protonix Thrombo Prophylaxis: Heparin Code status: FULL CODE Attending Provider Attestation/Addendum I have examined the patient, reviewed labs and imaging findings, discussed the case with the resident(s), and reviewed entered orders. I agree with the plan of care as outlined in this note, with these additional summaries/recommendations: # Hypotonic Hypochloremic hyponatremia Likely Acute on Chronic Presented with sodium 119 and serum osmolality 236 Volume status: Hypervolemic DDx: Likely multifactorial secondary to extrarenal losses from Lasix plus low solute intake from beer potomania plus likely underlying cirrhosis. Urine studies ordered. Trend sodium every 4-6 hours Consult nephrology, recommendations appreciated Fluid restriction for now. If patient becomes symptomatic we will give 3% hypertonic saline # Hyperbilirubinemia # Likely cirrhosis # Ascites # Fluid overload Most likely has underlying cirrhosis secondary to chronic alcohol use On admission total bilirubin 3.5, AST 97, ALP 176 Status post paracentesis on 02/22/2024 with 7.2 L removed in the emergency department. Unfortunately fluid was not collected for analysis. We will replace albumin. Avoid hepatotoxic agents. Patient would benefit from outpatient referral to gastroenterology once medically cleared and complete cessation of alcohol use. Order CT ABD/PLV for further evaluation # Alcohol withdrawal Does not appear to have alcohol withdrawal symptoms at this time although patient endorses drinking 12-18 beers a day plus tequila for approximately the last 40 years. We will monitor patient closely as he is high risk for withdrawal although noted he recently was prescribed naltrexone. Start CIWA protocol. # Nicotine dependence Plan: Nicotine patch if desired by patient Dr. Castillo
[2024-02-22 17:58] LABS: Bacteria,Urine Rare; Bilirubin,Urine Negative (Negative); Blood,Urine Negative (Negative); Clarity,Urine Turbid (Clear/Hazy); Color,Urine Yellow (Lt Yel-Yel); Glucose, Urine Negative (Negative); Ketones,Urine Negative (Negative); Leukocyte Esterase,Urine Negative (Negative); Nitrite,Urine Negative (Negative); PH,Urine 6.5 (5.0-7.0); Protein,Urine Negative (Neg - Trace); RBC,Urine 1 /hpf (0-3); Specific Gravity,Urine 1.005 (1.001-1.035); Squamous Epithelial Cell,Urine < 1 /hpf (0-5); WBC,Urine 3 /hpf (0-5)
[2024-02-22 18:07] LABS: Chloride,Urine Random < 20.0 mMol/L (55.0-125.0); Creatinine,Random Urine 35 mg/dL (30-125); Potassium,Urine Random < 10 mMol/L (12-62); Sodium,Urine Random < 10.0 mMol/L (20.0-110.0)
[2024-02-22] MEDS: ALBUMIN HUMAN 25% IVPB 25 GM/100 ML BTL IV ×2 (18:25→20:06)
[2024-02-22] MEDS: PANTOPRAZOLE 40 MG TABLET PO (18:28)
[2024-02-22 18:29] VITALS: BP 124/79; PULSE 87; RESP 16; TEMP 36.7; O2SAT 95
[2024-02-22] MEDS: HEPARIN SOD INJ 5000 UNIT/ML VIAL SC (18:29)
[2024-02-22 18:32] LABS: Magnesium 1.8 mg/dL (1.6-2.6); Phosphorous 2.7 mg/dL (2.4-5.1); Sodium 123 mMol/L (136-145)
[2024-02-22 18:55] LABS: Uric Acid 3.7 mg/dL (3.7-9.2)
[2024-02-22 19:38] LABS: Hepatitis A Antibody IgM Non Reactive (Non React); Hepatitis B Core Antibody IgM Non Reactive (Non React); Hepatitis B Surface Antigen Non Reactive (Non React); Hepatitis C Antibody Non Reactive (Non React)
[2024-02-22 19:43] VITALS: BP 100/57; PULSE 81; RESP 16; TEMP 36.8; O2SAT 95
[2024-02-22] MEDS: NICOTINE PATCH 21 MG/24 HR PATCH.TD24 TOP (20:05)
[2024-02-22] MEDS: THIAMINE 100 MG TABLET PO (20:17)
[2024-02-22] MEDS: FOLIC ACID 1 MG TABLET PO (20:17)
[2024-02-22] MEDS: LACTULOSE SYRUP 20 GM/30 ML UDC 10 GM PO (20:17)
[2024-02-22] MEDS: LIDOCAINE INJ PF 1% 30 ML VIAL (20:25)
[2024-02-22 21:00] VITALS: BP 95/65; PULSE 89; RESP 17; O2SAT 95
[2024-02-22 22:11] LABS: Amphetamine/Methamp Scrn,U Negative (Negative); Barbiturate Screen,Urine Negative (Negative); Benzodiazepines Screen,Urine Negative (Negative); Benzoylecgonine Screen, Ur Negative (Negative); Fentanyl Screen,Urine Negative (Negative); Opiate Screen,Urine Negative (Negative); THC Screen,Urine Negative (Negative)
[2024-02-22 22:13] LABS: Sodium 127 mMol/L (136-145)
[2024-02-23] VITALS (9 sets, daily range): BP systolic 99–117; BP diastolic 63–74; PULSE 86–116; RESP 16–19; TEMP 36.7–37.7; O2SAT 94–98
[2024-02-23 02:05] LABS: Sodium 127 mMol/L (136-145)
[2024-02-23] MEDS: DEXTROSE 5%-NS 500 ML 100 ML IV (02:32)
[2024-02-23] MEDS: DEXTROSE 5%-NS 500 ML 250 ML IV (03:40)
[2024-02-23] MEDS: HEPARIN SOD INJ 5000 UNIT/ML VIAL SC ×2 (05:21→20:39)
[2024-02-23 05:46] LABS: Basophils % (Auto) 1 % (0-2.5); Eosinophils # (Auto) 0.1 Thou/mm3 (0.0-0.5); Eosinophils % (Auto) 1 % (0-10); Hematocrit 34.3 % (41.0-53.0); Hemoglobin 12.1 g/dL (13.5-16.0); Immature Granulocytes % (Auto) 0 % (0-0); Immature Granulocytes Auto 0.02 Thou/mm3 (0.00-0.00); Lymphocytes # (Auto) 0.8 Thou/mm3 (1.0-4.8); Lymphocytes % (Auto) 12 % (10-50); Mean Corpuscular HGB Conc 35.3 g/dl (31.0-37.0); Mean Corpuscular Hemoglobin 31.3 pg (25.0-35.0); Mean Corpuscular Volume 89 fL (80-100); Monocytes # (Auto) 0.8 Thou/mm3 (0.0-0.8); Monocytes % (Auto) 12 % (0-12); Neutrophils # (Auto) 4.9 Thou/mm3 (1.8-7.7); Neutrophils % (Auto) 75 % (37-80); Nucleated Red Blood Cell % 0 /100 WBC (0); Platelet Count 140 Thou/mm3 (140-440); RDW Standard Deviation 46.2 fL (35.1-43.9); Red Blood Count 3.87 Miln/mm3 (4.50-5.90); White Blood Count 6.6 Thou/mm3 (3.8-10.6)
[2024-02-23 06:38] LABS: Alanine Aminotransferase 36 U/L (10-49); Albumin/Globulin Ratio 1.4 (1.2-2.2); Alkaline Phosphatase 129 U/L (46-116); Anion Gap 8 (7-16); Aspartate Amino Transferase 63 U/L (0-34); BUN/Creatinine Ratio 13 Ratio (12-20); Bilirubin,Total 2.6 mg/dL (0.3-1.2); Blood Urea Nitrogen < 5 mg/dL (9-23); Calcium 7.9 mg/dL (8.3-10.6); Calcium (Corrected) 8.7 mg/dL (8.5-10.1); Carbon Dioxide 26.4 mMol/L (20.0-31.0); Cardiac Risk Estimate 5.8 RATIO (4.0-6.7); Chloride 93 mMol/L (98-107); Cholesterol 81 mg/dL (132-200); Creatinine (Component) 0.4 mg/dL (0.6-1.3); Estimated Creatinine Clearance 192.3 mL/min (>60); Globulin 2.1 gm/dL (2.3-3.5); Glucose 130 mg/dL (74-106); HDL Cholesterol 14 mg/dL (40-60); LDL Cholesterol,Calculated 54 mg/dL (0-130); Magnesium 1.7 mg/dL (1.6-2.6); Osmolality,Calculated 254 (275-295); Phosphorous 2.7 mg/dL (2.4-5.1); Potassium 2.8 mMol/L (3.4-5.1); Sodium 127 mMol/L (136-145); Total Protein 5.1 gm/dL (5.7-8.2); Triglycerides 63 mg/dL (30-150); eGFR > 60 See Note
[2024-02-23] MEDS: POTASSIUM CHLORIDE 20 mEq TABCR 40 MEQ PO (07:44)
[2024-02-23] MEDS: FOLIC ACID 1 MG TABLET PO ×2 (08:10→20:39)
--- NOTE | 2024-02-23 08:10 | ESPR_ITS ---
<Statement entered by Danny Perez MD - 02/23/24 17:35> Patient was seen and examined at the bedside. Patient appears to be doing well and was not short of breath. He is still have distention of the abdomen with mild fluid thrill however was not feeling of any abdominal pain. His sodium last night improved to 127 however due to rapid correction night team started D5w per nephro recs and sodium was 127 in the morning. Discontinued D5W per nephrology recommendation. Sodium improved to 129. Nephrology recommended to give Lasix 20 mg x 1 and albumin additional 50 g x 1. Will likely monitor today and anticipating discharge tomorrow morning. All labs and orders were reviewed. I saw and examined the patient, and I agree with current management stated by Dr Lorenzo MD,PGY1. Plan of care was discussed with the attending physician and resident physician. Disclaimer: Despite multiple revisions, due to the dictation software being used, the document bellow may not be free of grammatical errors including phonetic/typographic errors. However, this does not deter from our commitment to providing health care in the patient's best interest in mind. Dr. Constantino MD, PGY 2 Documentation for date of: 02/23/24 Subjective Subjective Interval history: Patient was seen and examined at bedside this AM. Overnight patient's anion increased to 127 greater than goal of 4-6 mmol in 24 hours and was given 500 cc of D5 W to slow rate of correction This a.m. NA stable at 127. Goal of correction by 7 AM on 02/23 no more than 133 mmol Patient tolerating diet, adequate urine output and mentation is at baseline. K 2.8 and Mg 1.7. Repleted with KCl 80 mEq p.o. x 1 and max of 2 g IV x 1. Patient also found to have fungal groin rash and started on nystatin ointment. Exam Vital Signs Temp Pulse Resp BP Pulse Ox O2 Del Method O2 Flow Rate 98.4 F 102 H 16 105/63 96 Nasal Cannula 3 02/23/24 07:46 02/23/24 07:46 02/23/24 07:46 02/23/24 07:46 02/23/24 07:46 02/23/24 07:46 02/23/24 07:46 Narrative Exam Constitutional Alert, oriented x 3 and comfortable. Elderly male, temporal wasting, cachectic HEENT Vision grossly intact. Patent nares. Trachea midline Respiratory Chest normal on inspection and poor inspiratory effort, polyphonic wheeze heard throughout lung milner. Cardiovascular S1 and S2 audible, RRR. No murmurs carotid bruit. No gross JVD. Abdominal Distended and non tender to palpation in all quadrants. BS +. Bandage from paracentesis noted in right lower quadrant Genitourinary No bladder tenderness, no flank pain. Normal to palpation Musculoskeletal Extremities tone within normal limits. 4+ lower extremity edema up to mid thighs Neurological CN II - XII grossly intact. Extremity motor and sensation grossly intact. Skin Warm, dry and intact. Erythematous rash in groin area Psychiatric Patient has good affect, is cooperative Objective Labs 02/23/24 04:55 02/23/24 13:52 Labs: Laboratory Results - last 24 hr 02/22/24 02/22/24 02/22/24 11:10 16:57 17:55 WBC 10.0 RBC 4.27 L Hgb 13.4 L Hct 38.3 L MCV 90 MCH 31.4 MCHC 35.0 RDW Std Deviation 47.6 H Plt Count 176 Neut % (Auto) 79 Lymph % (Auto) 8 L Tate % (Auto) 11 Eos % (Auto) 1 Baso % (Auto) 1 Neut # (Auto) 7.8 H Lymph # (Auto) 0.8 L Tate # (Auto) 1.1 H Eos # (Auto) 0.1 Baso # (Auto) 0.1 Immature Gran # (Auto) 0.07 H Absolute Nucleated RBC 0.00 Immature Gran % 1 H Nucleated RBC % 0 PT 13.5 H INR 1.3 APTT 30.8 Sodium 119 L* 123 L Potassium 3.6 Chloride 86 L Carbon Dioxide 25.8 Anion Gap 7 BUN < 5 L Creatinine 0.4 L Estim Creat Clear Calc 194.1 eGFR > 60 BUN/Creatinine Ratio 13 Glucose 89 Calculated Osmolality 236 L Uric Acid 3.7 Calcium 8.4 Corrected Calcium 8.8 Phosphorus 2.7 Magnesium 1.8 Total Bilirubin 3.5 H AST 97 H ALT 49 Alkaline Phosphatase 176 H B-Natriuretic Peptide 90 Total Protein 6.4 Albumin 3.5 Globulin 2.9 Albumin/Globulin Ratio 1.2 Triglycerides Cholesterol LDL Cholesterol, Calc HDL Cholesterol Cholesterol/HDL Ratio Ur Collection Type Clean Catch Urine Color Yellow Urine Clarity Turbid A Urine pH 6.5 Ur Specific Lindsay 1.005 Urine Protein Negative Urine Glucose (UA) Negative Urine Ketones Negative Urine Blood Negative Urine Nitrite Negative Urine Bilirubin Negative Urine Urobilinogen (Auto) 8.0 Ur Leukocyte Esterase Negative Urine RBC 1 Urine WBC 3 Ur Squamous Epith Cells < 1 Urine Bacteria Rare Ur Random Creatinine 35 Ur Random Sodium < 10.0 L Ur Random Potassium < 10 L Ur Random Chloride < 20.0 L Urine Opiates Screen Urine Fentanyl Screen Ur Barbiturates Screen U Amphetamin/Meth Scrn U Benzodiazepines Scrn U Cocaine Metab Screen U Marijuana (THC) Screen Hepatitis A IgM Ab Non Reactive Hep Bs Antigen Non Reactive Hep B Core IgM Ab Non Reactive Hepatitis C Antibody Non Reactive 02/22/24 02/23/24 02/23/24 21:47 01:35 04:55 WBC 6.6 RBC 3.87 L Hgb 12.1 L Hct 34.3 L MCV 89 MCH 31.3 MCHC 35.3 RDW Std Deviation 46.2 H Plt Count 140 D Neut % (Auto) 75 Lymph % (Auto) 12 Tate % (Auto) 12 Eos % (Auto) 1 Baso % (Auto) 1 Neut # (Auto) 4.9 Lymph # (Auto) 0.8 L Tate # (Auto) 0.8 Eos # (Auto) 0.1 Baso # (Auto) 0.0 Immature Gran # (Auto) 0.02 H Absolute Nucleated RBC 0.00 Immature Gran % 0 Nucleated RBC % 0 PT INR APTT Sodium 127 L 127 L 127 L Potassium 2.8 L D Chloride 93 L Carbon Dioxide 26.4 Anion Gap 8 BUN < 5 L Creatinine 0.4 L Estim Creat Clear Calc 192.3 eGFR > 60 BUN/Creatinine Ratio 13 Glucose 130 H Calculated Osmolality 254 L Uric Acid Calcium 7.9 L Corrected Calcium 8.7 Phosphorus 2.7 Magnesium 1.7 Total Bilirubin 2.6 H D AST 63 H ALT 36 Alkaline Phosphatase 129 H D B-Natriuretic Peptide Total Protein 5.1 L Albumin 3.0 L D Globulin 2.1 L Albumin/Globulin Ratio 1.4 Triglycerides 63 Cholesterol 81 L LDL Cholesterol, Calc 54 HDL Cholesterol 14 L Cholesterol/HDL Ratio 5.8 Ur Collection Type Urine Color Urine Clarity Urine pH Ur Specific Lindsay Urine Protein Urine Glucose (UA) Urine Ketones Urine Blood Urine Nitrite Urine Bilirubin Urine Urobilinogen (Auto) Ur Leukocyte Esterase Urine RBC Urine WBC Ur Squamous Epith Cells Urine Bacteria Ur Random Creatinine Ur Random Sodium Ur Random Potassium Ur Random Chloride Urine Opiates Screen Negative Urine Fentanyl Screen Negative Ur Barbiturates Screen Negative U Amphetamin/Meth Scrn Negative U Benzodiazepines Scrn Negative U Cocaine Metab Screen Negative U Marijuana (THC) Screen Negative Hepatitis A IgM Ab Hep Bs Antigen Hep B Core IgM Ab Hepatitis C Antibody Quality Measures Quality Measures none Assessment & Plan Assessment Current Active Medications: Generic Name Dose Route Start Last Admin Trade Name Freq PRN Reason Stop Dose Admin Acetaminophen 650 mg 02/22/24 17:36 Acetaminophen 325 Mg Tablet PO 03/23/24 17:35 Q6H PRN Fever >100.4 Acetaminophen 650 mg 02/22/24 17:36 Acetaminophen 325 Mg Tablet PO 03/23/24 17:35 Q6H PRN PAIN SCALE 1-3 (mild Hydrocodone Bitart/Acetaminophen 1 tab 02/22/24 17:36 Hydrocodone/Apap 10/325 Tab PO 02/27/24 17:35 Q4H PRN PAIN SCALE 4-6 (Moderate Albuterol/Ipratropium 3 ml 02/22/24 17:36 Albuterol/Ipratropium (Duoneb) Rt Mallory 3 Ml Nebu INH 03/23/24 17:35 Q2HR PRN SHORTNESS OF BREATH OR WHEEZE Folic Acid 1 mg 02/22/24 21:00 02/22/24 20:17 Folic Acid 1 Mg Tablet PO 02/27/24 20:59 1 mg BID JAMMIE Administration Heparin Sodium (Porcine) 5,000 unit 02/22/24 17:45 02/23/24 05:21 Heparin Sod Inj 5000 Unit/Ml Vial SC 03/07/24 17:44 5,000 unit Q12H JAMMIE Administration Magnesium Sulfate 2 gm in 50 mls @ 25 mls/hr 02/23/24 07:57 Magnesium Sulfate Ivpb IV 02/23/24 09:56 X1 ONE Lactulose 10 gm 02/22/24 21:00 02/22/24 20:17 Lactulose Syrup 20 Gm/30 Ml Udc PO 03/23/24 20:59 10 gm BID JAMMIE Administration Protocol Lorazepam 0.5 mg 02/22/24 17:42 Lorazepam 0.5 Mg Tablet PO 02/27/24 17:41 Q4HR PRN CIWA Score 2-6 Lorazepam 1 mg 02/22/24 17:42 Lorazepam 0.5 Mg Tablet PO 02/27/24 17:41 Q4HR PRN CIWA SCORE 7-11 Lorazepam 2 mg 02/22/24 17:42 Lorazepam 0.5 Mg Tablet PO 02/27/24 17:41 Q4HR PRN CIWA SCORE 12-15 Lorazepam 2 mg 02/22/24 17:42 Lorazepam 2 Mg/Ml Vial IV 02/27/24 17:41 Q2HR PRN CIWA SCORE 20-25 Morphine Sulfate 1 mg 02/22/24 17:36 Morphine Sulf Inj 10 Mg/Ml Vial IVP 02/27/24 17:35 Q4H PRN PAIN SCALE 7-10 (Severe Nicotine 21 mg 02/22/24 17:45 02/22/24 20:05 Nicotine Patch 21 Mg/24 Hr Patch.Td24 TOP 03/23/24 17:44 21 mg QDAY JAMMIE Administration Ondansetron HCl 4 mg 02/22/24 17:36 Ondansetron Inj 2 Mg/Ml Inj 2 Ml IV 03/23/24 17:35 Q6H PRN NAUSEA OR VOMITING Protocol Pantoprazole Sodium 40 mg 02/22/24 17:45 02/22/24 18:28 Pantoprazole 40 Mg Tablet PO 03/23/24 17:44 40 mg QDAY JAMMIE Administration Potassium Chloride 20 meq 02/23/24 09:00 Potassium Chloride 20 Meq Tabcr PO 02/23/24 09:01 X1 ONE Thiamine HCl 100 mg 02/22/24 21:00 02/22/24 20:17 Thiamine 100 Mg Tablet PO 02/27/24 20:59 100 mg BID JAMMIE Administration Plan Patient is a 63-year-old male with no past medical history. He has no PCP and has never seen a doctor in his life. Patient presented today with a chief complaint of leg swelling and abdominal distention. Patient to be admitted for treatment and management of severe hyponatremia. 1. Severe Hypotonic Asymptomatic acute on chronic hyponatremia - resolving 2. Hypochloremia On admission patient's NA 119. Osm 236 DDx: Beer Poto mejia, primary polydipsia, hypervolemia secondary to decompensated cirrhosis, SIADH, pancreatitis, CHF BNP was 90. CHF unlikey Patient has a significant alcohol use history drinks beers daily. Most likely differential beer Poto mejia. Will order urine electrolytes and osmolality to further assess and rule out other etiologies. Also possibly secondary to poor oral intake and lasix use Uric acid 3.7. Overnight patient's anion increased to 127 greater than goal of 4-6 mmol in 24 hours and was given 500 cc of D5 W to slow rate of correction This a.m. NA stable at 127. Goal of correction by 7 AM on 02/23 no more than 133 mmol Due to rapid rate of correction most likely etiology by potomania. Plan: ? 1500 cc/day fluid restriction ? Sodium checks Q4 hourly ? Urine electrolytes and osmolality ordered ? Goal of sodium correction 4-6 mmol / 24 hours. Not to exceed 8 mL normal in any 24-hour period. ? Nephrology was consulted. Appreciate recommendations 3. Likely Decompensated alcoholic liver cirrhosis with ascites Patient had lower extremity and abdominal swelling for the past month and a half. He was prescribed Lasix by [facility] which initially helped but then the swelling started to get worse. On exam patient has 4+ pitting edema to mid thighs and severe abdominal distention. Meld?NA score: 24 points; 14-15% 90-day mortality Child?Vincent score : 10 points. Child class C. Life expectancy 1-3 years. T. bili 3.5 on admission, AST 97, ALT 49, ALP 176. PT elevated at 15.5. Hepatitis A, B and C were all negative Patient has therapeutic paracentesis on 02/21 with drain 7.2 L of fluid and was repleted with 50 g albumin. Plan: ? Regular diet with 1500 cc fluid restriction ? Lasix 40 Mg IV x 1 ordered as per nephrology recommendations ? Albumin 50 g IV x 1 ordered as per nephrology recommendations ? Lactulose 10 g p.o. twice daily for hepatic encephalopathy prophylaxis. Titrate to achieve 2-3 bowel movements per day ? Patient counseled on alcohol cessation. He agreed to stop ? Outpatient consult for possible liver transplant 4. Alcohol dependence 5. Nicotine dependence Patient has approximately 33-pafi-latr smoking history and currently smokes 1.5 packs of cigarettes per day. Patient also has more than 40 years of alcohol use history and drinks approximately 12?18 beers per day. Patient's last drink was approximately 2 days ago and he is at high risk of alcohol withdrawal and possible delirium tremens. Plan: ? CICO protocol ? Nicotine patch 21 Mg topical for 1 week ? Patient extensively counseled on alcohol and smoking cessation. Patient agreed. 6. Hyperbilirubinemia On admission T.bili 3.5 Possibly secondary to decompensated alcoholic cirrhosis. Plan: ? Monitor Bili Health maintenance: Disposition: Na checks Q 4 hrly. CIWA prtocol. Possible discharge tomorrow Diet: Regular with 1500cc Fluid restriction Lines: pIVs GI Prophylaxis: Protonix Thrombo Prophylaxis: Heparin Code status: FULL CODE Attending Provider Attestation/Addendum I have examined the patient, reviewed labs and imaging findings, discussed the case with the resident(s), and reviewed entered orders. I agree with the plan of care as outlined in this note, with these additional summaries/recommendations: # Hypotonic Hypochloremic hyponatremia Likely Acute on Chronic Presented with sodium 119 and serum osmolality 236 Volume status: Hypervolemic DDx: Likely multifactorial secondary to low solute intake from beer potomania plus likely underlying cirrhosis. Urine studies ordered. Trend sodium every 4-6 hours Consult nephrology, recommendations appreciated Fluid restriction for now. If patient becomes symptomatic we will give 3% hypertonic saline. Sodium correcting appropriately we will continue to monitor sodium closely # Cirrhosis # Hyperbilirubinemia # Ascites Most likely has underlying cirrhosis secondary to chronic alcohol use On admission total bilirubin 3.5, AST 97, ALP 176 Status post paracentesis on 02/22/2024 with 7.2 L removed in the emergency department. Unfortunately fluid was not collected for analysis. Albumin replaced Avoid hepatotoxic agents. Patient would benefit from outpatient referral to gastroenterology once medically cleared and complete cessation of alcohol use. Order CT ABD/PLV for further evaluation # Alcohol withdrawal Does not appear to have alcohol withdrawal symptoms at this time although patient endorses drinking 12-18 beers a day plus tequila for approximately the last 40 years. We will monitor patient closely as he is high risk for withdrawal although noted he recently was prescribed naltrexone. Continue CIWA protocol. # Nicotine dependence Plan: Nicotine patch if desired by patient Dr. Castillo
[2024-02-23] MEDS: THIAMINE 100 MG TABLET PO ×2 (08:11→20:39)
[2024-02-23] MEDS: LACTULOSE SYRUP 20 GM/30 ML UDC 10 GM PO ×2 (08:11→20:39)
[2024-02-23] MEDS: PANTOPRAZOLE 40 MG TABLET PO (08:11)
[2024-02-23] MEDS: NICOTINE PATCH 21 MG/24 HR PATCH.TD24 TOP (08:11)
[2024-02-23] MEDS: Magnesium Sulfate 2 GM Ivpb 2 GM/50 ML BAG IV (08:12)
[2024-02-23] MEDS: FUROSEMIDE INJ 10 MG/ML 4ML VIAL 40 MG IVP (10:25)
[2024-02-23] MEDS: POTASSIUM CHLORIDE 20 mEq TABCR PO ×2 (10:26→16:39)
[2024-02-23] MEDS: ALBUMIN HUMAN 25% IVPB 25 GM/100 ML BTL IV ×2 (10:27→11:49)
[2024-02-23 10:31] LABS: Sodium 127 mMol/L (136-145)
--- NOTE | 2024-02-23 10:44 | PC.SS ---
Rounding: Regulate NA levels to normal limits, pending nephrology consult and reccs
--- NOTE | 2024-02-23 11:39 | PC.SS ---
Eriberto Vilchis is a 63-year-old male admitted to [facility] for Swollen. SS conducted bedside contact with the patient to complete initial assessment and to discuss discharge planning utilizing [employer] Specialist Lorin. Patient confirmed demographic information. Patient identifies his friend Joao Suarez [phone] as his surrogate decision maker. Patient resides at home alone. Pt states he is typically able to complete all ADL?s independently, no need for any source of DME. Pt does not possess a PCP and is not interested at this time. DC option discussed and pt wishes to return home. Pts friend will provide transportation upon DC. No further intervention required at this time, certified social workers in health care would be available to address any further concerns.
[2024-02-23] MEDS: NYSTATIN TOP ×2 (11:49→20:47)
[2024-02-23 14:23] LABS: Albumin, Serum 3.3 gm/dL (3.4-4.8); Anion Gap 5 (7-16); BUN/Creatinine Ratio 10 Ratio (12-20); Blood Urea Nitrogen < 5 mg/dL (9-23); Calcium 8.5 mg/dL (8.3-10.6); Calcium (Corrected) 9.1 mg/dL (8.5-10.1); Carbon Dioxide 27.9 mMol/L (20.0-31.0); Chloride 96 mMol/L (98-107); Creatinine (Component) 0.5 mg/dL (0.6-1.3); Estimated Creatinine Clearance 153.9 mL/min (>60); Glucose 107 mg/dL (74-106); Osmolality,Calculated 256 (275-295); Phosphorous 3.2 mg/dL (2.4-5.1); Potassium 3.4 mMol/L (3.4-5.1); Sodium 129 mMol/L (136-145); eGFR > 60 See Note
--- NOTE | 2024-02-23 14:44 | PD.RESCONSUL ---
HPI Data of Consult Consult date: 02/23/24 Requesting Physician: Calderon Castillo MD Admitting Provider: Calderon Castillo MD Attending Provider: Calderon Castillo MD Primary Care Provider: Physician No Primary/Family Consult Narrative Reason for consult: hyponatremia History of present illness: Mr. Vilchis is a 63-year-old male with a previous medical history of alcohol use disorder, liver cirrhosis that came to the ED with complaints of abdominal distention and lower extremity edema. Patient's last drink was few days ago. ED workup showed low sodium of 119, hypoosmolar plasma. Physical examination and imaging showed signs of abdominal effusion, patient underwent pleurocentesis and 7 L of fluid was removed. He received 50 g of albumin IV and was placed on fluid restriction and CIWA protocol. Patient did not see any physician for years. Poor historian. Renal consultation requested for hyponatremia. In the emergency department-BP 132/80, HR 97, RR?20, T?98F, SpO2 98% on RA. Labs significant for NA 119, K3.6, CL 86, BUN <5, CR 0.4, T.bili 3.5, AST 97, ALT 49, ALP 176. Chest x-ray showed no signs of consolidation, pulmonary edema or pleural effusion. Lower extremity Doppler was also negative for any thrombosis. Patient had therapeutic paracentesis in the ER and drained 7.2L of fluid. 02/23/24: Patient was seen and examined by the bedside. No acute events overnight. Overnight his sodium went up rapidly and normal saline was given. Currently sodium stabilized at 127. Alert and awake. No seizures no confusion noted. He reports that his swelling has improved, denies shortness of breath, chest pain, abdominal pain. Will start albumin 50 g IV for fluid resuscitation today and will do Lasix 40 mg IV once. Continue with fluid restriction. Goal sodium mormonism is 4 to 6 mEq/day. cc:: cc: Calderon Castillo MD Review of Systems Review of Systems Systems Reviewed: All systems reviewed, normal except as documented Past Medical History Past Medical History CARDIAC: Negative Cardiac Disorders or Congestive Heart Failure RESPIRATORY: Negative Chronic Obstructive Pulmonary Disease (COPD) or Asthma GENITOURINARY: Negative Renal Disease ENDOCRINE: Negative Diabetes Mellitus Type 1 or Diabetes Mellitus Type 2 HEMATOLOGIC: Negative Sickle Cell Disease Social History SMOKING STATUS: Heavy (> 1 pack/day) Past Medical History Comments PMH COMMENT: Past medical history: ?Decompensated alcoholic cirrhosis ? Chronic alcohol use ? Nicotine dependence ? 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 Feeds chickens and does chores around house Education Level: Patient attended high school in [place], did not graduate Marital Status: and has one 24-year-old daughter Tobacco use: Approximately 30?22-[id number] smoking history. Smokes 1.5 packs a day ETHO use: More than 40 years alcohol use. Drinks between 12-18 cans of beer per day Illicit drug use: Denies Social History Note: lives with friends in [place]. Last time he had sex was 10 years ago Family History: No significant family history. His father is still alive at age 96 Exam Vital Signs Temp Pulse Resp BP Pulse Ox O2 Del Method O2 Flow Rate 98.1 F 98 16 117/72 97 Nasal Cannula 3 02/23/24 11:51 02/23/24 11:51 02/23/24 11:51 02/23/24 11:51 02/23/24 11:51 02/23/24 11:51 02/23/24 11:51 Narrative Exam Physical Exam General: Awake and in no acute distress. Conversational and non-toxic appearing. AOx3 HEENT: Normocephalic, atraumatic, mucous membranes moist. Slightly icteric conjunctiva. Heart: Regular rate and rhythm, no murmurs. Lungs: Clear to auscultation with no wheezing or crackles. Abdomen: Soft,significantly distended with prominent subcutaneous veins, nontender, positive bowel sounds. ?No guarding or rebound tenderness. ++ Ascites Neurologic: Alert and oriented x3, no gross neurological deficit, and patient able to move all 4 extremities. Extremities: Moderate pitting bilateral tibial edema. Skin: No rash or ecchymoses. Results Labs 02/24/24 05:30 02/24/24 01:47 Labs: Short CBC 02/23/24 Range/Units 04:55 WBC 6.6 (3.8-10.6) Thou/mm3 Hgb 12.1 L (13.5-16.0) g/dL Hct 34.3 L (41.0-53.0) % Plt Count 140 D (140-440) Thou/mm3 BMP 02/22/24 02/22/24 02/23/24 17:55 21:47 01:35 Sodium 123 L 127 L 127 L Potassium Chloride Carbon Dioxide BUN Creatinine Glucose Calcium 02/23/24 02/23/24 02/23/24 04:55 09:50 13:52 Sodium 127 L 127 L 129 L Potassium 2.8 L D 3.4 D Chloride 93 L 96 L Carbon Dioxide 26.4 27.9 BUN < 5 L < 5 L Creatinine 0.4 L 0.5 L Glucose 130 H 107 H Calcium 7.9 L 8.5 Liver Function 02/23/24 02/23/24 Range/Units 04:55 13:52 Total Bilirubin 2.6 H D (0.3-1.2) mg/dL AST 63 H (0-34) U/L ALT 36 (10-49) U/L Alkaline Phosphatase 129 H D (46-116) U/L Albumin 3.0 L D 3.3 L (3.4-4.8) gm/dL Urine 02/22/24 Range/Units 16:57 Urine Color Yellow (Lt Yel-Yel) Urine Clarity Turbid A (Clear/Hazy) Urine pH 6.5 (5.0-7.0) Ur Specific [place] 1.005 (1.001-1.035) Urine Protein Negative (Neg - Trace) Urine Glucose (UA) Negative (Negative) Quality Measures Quality Measures VTE prophylaxis Medications Home Medications and Allergies Home Medications ?Medication ?Instructions ?Recorded ?Confirmed ?Type naltrexone 50 mg tablet 50 mg PO QDAY 02/23/24 02/23/24 History Allergies Allergy/AdvReac Type Severity Reaction Status Date / Time No Known Allergies Allergy Verified 02/22/24 10:29 Visit Medications Acetaminophen (Acetaminophen 325 Mg Tablet) 650 mg PO Q6H PRN PRN Reason: Fever >100.4 Stop: 03/23/24 17:35 Acetaminophen (Acetaminophen 325 Mg Tablet) 650 mg PO Q6H PRN PRN Reason: PAIN SCALE 1-3 (mild Stop: 03/23/24 17:35 Hydrocodone Bitart/Acetaminophen (Hydrocodone/Apap 10/325 Tab) 1 tab PO Q4H PRN PRN Reason: PAIN SCALE 4-6 (Moderate Stop: 02/27/24 17:35 Albuterol/Ipratropium (Albuterol/Ipratropium (Duoneb) Rt Mallory 3 Ml Nebu) 3 ml INH Q2HR PRN PRN Reason: SHORTNESS OF BREATH OR WHEEZE Stop: 03/23/24 17:35 Folic Acid (Folic Acid 1 Mg Tablet) 1 mg PO BID [facility] Stop: 02/27/24 20:59 Last Admin: 02/23/24 08:10 Dose: 1 mg Heparin Sodium (Porcine) (Heparin Sod Inj 5000 Unit/Ml Vial) 5,000 unit SC Q12H [facility] Stop: 03/07/24 17:44 Last Admin: 02/23/24 05:21 Dose: 5,000 unit Lactulose (Lactulose Syrup 20 Gm/30 Ml Udc) 10 gm PO BID [facility]; Protocol Stop: 03/23/24 20:59 Last Admin: 02/23/24 08:11 Dose: 10 gm Lorazepam (Lorazepam 0.5 Mg Tablet) 0.5 mg PO Q4HR PRN PRN Reason: CIWA Score 2-6 Stop: 02/27/24 17:41 Lorazepam (Lorazepam 0.5 Mg Tablet) 1 mg PO Q4HR PRN PRN Reason: CIWA SCORE 7-11 Stop: 02/27/24 17:41 Lorazepam (Lorazepam 0.5 Mg Tablet) 2 mg PO Q4HR PRN PRN Reason: CIWA SCORE 12-15 Stop: 02/27/24 17:41 Lorazepam (Lorazepam 2 Mg/Ml Vial) 2 mg IV Q2HR PRN PRN Reason: CIWA SCORE 20-25 Stop: 02/27/24 17:41 Morphine Sulfate (Morphine Sulf Inj 10 Mg/Ml Vial) 1 mg IVP Q4H PRN PRN Reason: PAIN SCALE 7-10 (Severe Stop: 02/27/24 17:35 Nicotine (Nicotine Patch 21 Mg/24 Hr Patch.Td24) 21 mg TOP QDAY [facility] Stop: 03/23/24 17:44 Last Admin: 02/23/24 08:11 Dose: 21 mg Nystatin (Nystatin Oint 30 Gm Tube) 0 gm TOP BID [facility] Stop: 03/01/24 10:29 Last Admin: 02/23/24 11:49 Dose: 1 applicatio Ondansetron HCl (Ondansetron Inj 2 Mg/Ml Inj 2 Ml) 4 mg IV Q6H PRN; Protocol PRN Reason: NAUSEA OR VOMITING Stop: 03/23/24 17:35 Pantoprazole Sodium (Pantoprazole 40 Mg Tablet) 40 mg PO QDAY JAMMIE Stop: 03/23/24 17:44 Last Admin: 02/23/24 08:11 Dose: 40 mg Thiamine HCl (Thiamine 100 Mg Tablet) 100 mg PO BID JAMMIE Stop: 02/27/24 20:59 Last Admin: 02/23/24 08:11 Dose: 100 mg Discontinued Medications Furosemide (Furosemide Inj 10 Mg/Ml 4ml Vial) 40 mg IVP X1 ONE Stop: 02/23/24 08:49 Last Admin: 02/23/24 10:25 Dose: 40 mg Dextrose (D5w) 1,000 mls @ 75 mls/hr IV .[id number] JAMMIE Stop: 03/23/24 15:14 Last Admin: 02/22/24 16:22 Dose: Not Given Dextrose/Sodium Chloride (D5-Ns) 1,000 mls @ 75 mls/hr IV .[id number] JAMMIE Stop: 03/23/24 16:29 Dextrose/Sodium Chloride (D5-Ns) 1,000 mls @ 75 mls/hr IV .[id number] JAMMIE Stop: 02/23/24 16:29 Last Admin: 02/22/24 16:27 Dose: 75 mls/hr Albumin Human (Albuminar-25 Ivpb) 25 gm in 100 mls @ 100 mls/hr IV QDAY ONE Stop: 02/22/24 18:45 Last Infusion: 02/22/24 21:35 Dose: Infused Albumin Human (Albuminar-25 Ivpb) 25 gm in 100 mls @ 100 mls/hr IV QDAY JAMMIE Stop: 02/22/24 19:59 Last Infusion: 02/22/24 21:33 Dose: Infused Dextrose (D5w) 500 mls @ 999 mls/hr IV .Q31M JAMMIE Stop: 02/22/24 23:30 Dextrose (D5w) 500 mls @ 100 mls/hr IV .Q5H JAMMIE Stop: 02/23/24 06:29 Dextrose/Sodium Chloride (D5-Ns) 500 mls @ 100 mls/hr IV .Q5H JAMMIE Stop: 02/23/24 06:59 Last Admin: 02/23/24 02:32 Dose: 100 mls/hr Dextrose/Sodium Chloride (D5-Ns) 500 mls @ 200 mls/hr IV .Q2H30M [facility] Stop: 02/23/24 05:57 Dextrose/Sodium Chloride (D5-Ns) 500 mls @ 250 mls/hr IV .Q2H JAMMIE Stop: 02/23/24 05:32 Last Admin: 02/23/24 03:40 Dose: 250 mls/hr Magnesium Sulfate (Magnesium Sulfate Ivpb) 2 gm in 50 mls @ 25 mls/hr IV X1 ONE Stop: 02/23/24 09:56 Last Admin: 02/23/24 08:12 Dose: 25 mls/hr Albumin Human (Albuminar-25 Ivpb) 25 gm in 100 mls @ 100 mls/hr IV X1 ONE Stop: 02/23/24 09:46 Last Admin: 02/23/24 11:49 Dose: 100 mls/hr Albumin Human (Albuminar-25 Ivpb) 25 gm in 100 mls @ 100 mls/hr IV X1 ONE Stop: 02/23/24 09:47 Last Admin: 02/23/24 10:27 Dose: 100 mls/hr Potassium Chloride (Potassium Chloride 20 Meq Tabcr) 40 meq PO X1 ONE Stop: 02/23/24 06:44 Last Admin: 02/23/24 07:44 Dose: 40 meq Potassium Chloride (Potassium Chloride 20 Meq Tabcr) 20 meq PO X1 ONE Stop: 02/23/24 09:01 Last Admin: 02/23/24 10:26 Dose: 20 meq Assessment & Plan Plan Patient is a 63-year-old male with no past medical history. He has no PCP and has never seen a doctor in his life. Patient presented today with a chief complaint of leg swelling and abdominal distention. Patient to be admitted for treatment and management of severe hyponatremia. #Severe hypoosmolar hyponatremia, improving Patient has a longstanding history of alcohol use disorder, beer intake. Urinalysis showed specific gravity 1005 Hyponatremia most likely in the setting of beer potomania(patient admits to drinking more than 10 beers per day). Urine electrolytes are low, which makes SIADH less likely. Plan: ? 1500 ml daily fluid restriction ? Goal of Na correction 4-6 milliequivalents per day no and not to exceed 8 mEq in 24-hour period. ?Electrolyte repletion as needed. #Decompensated alcoholic liver cirrhosis #Ascites Patient had lower extremity and abdominal swelling for the past month and a half. He was prescribed Lasix by [facility] which initially helped but then the swelling started to get worse. 02/22/24:On exam patient has 4+ pitting edema to mid thighs and severe abdominal distention. Meld?NA score: 24 points; 14-15% 90-day mortality Child?Vincent score : 10 points. Child class C. Life expectancy 1-3 years. T. bili 3.5 on admission, AST 97, ALT 49, ALP 176. PT elevated at 15.5. 02/22/24: Patient has therapeutic paracentesis with drain 7.2 L of fluid and was repleted with 50 g albumin. 02/23/24: Patient's edema has improved. Patient was started on 50 g albumin again to replete volume after paracentesis. Will diurese with Lasix to improve edema. Hepatitis panel negative. Plan: ? Regular diet with 1500ml/day restriction ?Albumin 50 g IV once ? Lasix 40 mg once #Alcohol use disorder #Nicotine dependence #Hyperbilirubinemia ? Management as per primary team. Plan of care discussed with attending Dr. Arnold. Lisa Contreras MD, PGY 1. Attending Provider Attestation/Addendum Patient seen and examined with resident physician Dr. Gonzalez. Note reviewed, agree with findings and recommendations. Patient admitted with weakness and noted to have severe hyponatremia. Urine studies consistent with beer potomania with a dilute urine. Agree with fluid resuscitation and close monitoring of serum sodium. Today's sodium is much better at 127. No neurological symptoms. Emphasized alcohol abstinence. Patient also needs follow-up with a primary care provider. Significant ascites noted. Suspect decompensated liver cirrhosis. No evidence of any GI bleed. Creatinine stable. Thank you Dr. Orellana for allowing me to participate in the care of Mr. Vilchis
[2024-02-23 18:20] LABS: Sodium 128 mMol/L (136-145)
[2024-02-23 22:04] LABS: Sodium 130 mMol/L (136-145)
[2024-02-24] VITALS: BP 110/68; PULSE 96; RESP 20; TEMP 37.1; O2SAT 94
[2024-02-24 02:17] LABS: Sodium 131 mMol/L (136-145)
[2024-02-24 04:00] VITALS: BP 106/70; PULSE 84; RESP 16; TEMP 37.2; O2SAT 95
[2024-02-24 06:10] LABS: Basophils # (Auto) 0.1 Thou/mm3 (0.0-0.2); Basophils % (Auto) 1 % (0-2.5); Eosinophils # (Auto) 0.1 Thou/mm3 (0.0-0.5); Eosinophils % (Auto) 2 % (0-10); Hematocrit 35.1 % (41.0-53.0); Hemoglobin 12.2 g/dL (13.5-16.0); Immature Granulocytes % (Auto) 0 % (0-0); Immature Granulocytes Auto 0.03 Thou/mm3 (0.00-0.00); Lymphocytes # (Auto) 0.9 Thou/mm3 (1.0-4.8); Lymphocytes % (Auto) 12 % (10-50); Mean Corpuscular HGB Conc 34.8 g/dl (31.0-37.0); Mean Corpuscular Volume 89 fL (80-100); Monocytes # (Auto) 1.1 Thou/mm3 (0.0-0.8); Monocytes % (Auto) 17 % (0-12); Neutrophils # (Auto) 4.6 Thou/mm3 (1.8-7.7); Neutrophils % (Auto) 68 % (37-80); Nucleated Red Blood Cell % 0 /100 WBC (0); Platelet Count 143 Thou/mm3 (140-440); RDW Standard Deviation 47.6 fL (35.1-43.9); Red Blood Count 3.93 Miln/mm3 (4.50-5.90); White Blood Count 6.8 Thou/mm3 (3.8-10.6)
[2024-02-24 06:48] LABS: Alanine Aminotransferase 30 U/L (10-49); Albumin, Serum 3.2 gm/dL (3.4-4.8); Albumin/Globulin Ratio 1.6 (1.2-2.2); Alkaline Phosphatase 106 U/L (46-116); Anion Gap 7 (7-16); Aspartate Amino Transferase 40 U/L (0-34); BUN/Creatinine Ratio 13 Ratio (12-20); Bilirubin,Total 1.9 mg/dL (0.3-1.2); Blood Urea Nitrogen < 5 mg/dL (9-23); Calcium 8.3 mg/dL (8.3-10.6); Calcium (Corrected) 8.9 mg/dL (8.5-10.1); Carbon Dioxide 26.9 mMol/L (20.0-31.0); Chloride 97 mMol/L (98-107); Creatinine (Component) 0.4 mg/dL (0.6-1.3); Estimated Creatinine Clearance 193.1 mL/min (>60); Glucose 116 mg/dL (74-106); Osmolality,Calculated 260 (275-295); Phosphorous 2.8 mg/dL (2.4-5.1); Potassium 3.4 mMol/L (3.4-5.1); Sodium 131 mMol/L (136-145); Total Protein 5.2 gm/dL (5.7-8.2); eGFR > 60 See Note
[2024-02-24 08:00] VITALS: BP 95/62; PULSE 92; RESP 19; TEMP 36.7; O2SAT 95
[2024-02-24 08:30] VITALS: PULSE 96
--- NOTE | 2024-02-24 08:50 | ECHO_ITS ---
Transthoracic Echo Report Ht (in): 66 Wt (lb): 177 Exam Location: Portable Status: Inpatient Crime Scene Specialist: Sravanthi Varghese Indications: Procedure Performed: BP: 109 / 70 HR: 96 Rhythm: Sinus Technical Quality: Technically difficult study MEASUREMENTS (Male / Female) Normal Values 2D ECHO LV Diastolic Diameter PLAX 4.8 cm 4.2 - 5.9 / 3.9 - 5.3 cm LV Systolic Diameter PLAX 3.1 cm IVS Diastolic Thickness 0.9 cm 0.6 - 1.0 / 0.6 - 0.9 cm LVPW Diastolic Thickness 1.0 cm 0.6 - 1.0 / 0.6 - 0.9 cm LV Relative Wall Thickness 0.4 LVOT Diameter 2.1 cm LA Volume Index 31.2 cm?/m? 16 - 28 cm?/m? Ascending Aorta Diameter 3.4 cm M-MODE Aortic Root Diameter MM 3.0 cm LA Systolic Diameter MM 4.2 cm LA Ao Ratio MM 1.4 AV Cusp Separation MM 2.4 cm DOPPLER AV Peak Velocity 116.0 cm/s AV Peak Gradient 5.4 mmHg AV Mean Gradient 3.0 mmHg AV Velocity Time Integral 20.2 cm LVOT Peak Velocity 83.5 cm/s LVOT Peak Gradient 2.8 mmHg LVOT Velocity Time Integral 14.5 cm LVOT Cardiac Index 2466.8 cm?/min?m? AV Area Cont Eq vti 2.5 cm? AV Area Cont Eq pk 2.5 cm? MV Peak Velocity 74.6 cm/s MV Peak Gradient 2.2 mmHg MV Mean Velocity 53.9 cm/s MV Mean Gradient 1.0 mmHg MV Area PHT 4.4 cm? Mitral E Point Velocity 47.1 cm/s Mitral A Point Velocity 61.1 cm/s Mitral E to A Ratio 0.8 LV E' Lateral Velocity 10.8 cm/s Mitral E to LV E' Lateral Ratio 4.4 LV E' Septal Velocity 8.2 cm/s Mitral E to LV E' Septal Ratio 5.8 FINDINGS Left Ventricle Normal left ventricular size, wall thickness, systolic function with no obvious regional wall motion abnormalities. The ejection fraction is visually estimated at 55-60%. Right Ventricle The right ventricle is normal in size and systolic function. Left Atrium The left atrium is normal by two-dimensional, color flow and Doppler imaging with no structural abnormalities, no thrombus formation present. Right Atrium The right atrium is normal by two-dimensional imaging, color flow and Doppler imaging with no struct ural abnormalities, no thrombus formation present. Atrial Septum The interatrial septum appears normal with no evidence of a shunt. Aorta The aorta is normal by two-dimensional, color flow and Doppler interrogation. Mitral Valve The mitral valve is normal by two-dimensional, color flow and Doppler interrogation. There is trace mitral valve regurgitation. Aortic Valve The aortic valve is trileaflet and normal by two-dimensional, color flow and Doppler interrogation. There is no significant aortic valve regurgitation. Tricuspid Valve The tricuspid valve is normal by two-dimensional, color flow and Doppler interrogation. There is tr zander tricuspid valve regurgitation. Pulmonic Valve The pulmonic valve is not well visualized. There is no significant pulmonic valve regurgitation. Vessels The pulmonary artery appears normal. The inferior vena cava pulmonary and hepatic veins appear saundra l. Pericardium The pericardium is normal by two-dimensional imaging. There is no significant pericardial effusion. CONCLUSIONS Suboptimal images. Normal LV size and function. Estimated EF 55-60% Normal RV size and function. Trace MR, TR. Pleural effusion present. Mae Stewart (Electronically Signed) Final Date: 24 February 2024 18:28
[2024-02-24] MEDS: Magnesium Sulfate 2 GM Ivpb 2 GM/50 ML BAG IV (09:17)
[2024-02-24] MEDS: THIAMINE 100 MG TABLET PO (09:18)
[2024-02-24] MEDS: POTASSIUM CHLORIDE 20 mEq TABCR PO (09:18)
[2024-02-24 09:19] VITALS: BP 109/70; PULSE 96
[2024-02-24] MEDS: FOLIC ACID 1 MG TABLET PO (09:19)
[2024-02-24] MEDS: FUROSEMIDE INJ 10 MG/ML 4ML VIAL 40 MG IVP (09:19)
[2024-02-24] MEDS: PANTOPRAZOLE 40 MG TABLET PO (09:19)
[2024-02-24] MEDS: LACTULOSE SYRUP 20 GM/30 ML UDC 10 GM PO (09:20)
[2024-02-24] MEDS: NICOTINE PATCH 21 MG/24 HR PATCH.TD24 TOP (09:20)
[2024-02-24] MEDS: HEPARIN SOD INJ 5000 UNIT/ML VIAL SC (09:31)
--- NOTE | 2024-02-24 09:48 | ESDS_ITS ---
<Statement entered by Scottie Price MD - 02/25/24 12:27> I have discussed and was present for the essential components of the history, physical examination, diagnosis, and treatment plan with the resident. I agree with the patient's care as documented by the resident and amended herein by me. Scottie Price MD. <Statement entered by Danny Perez MD - 02/24/24 15:51> I saw and examined the patient, and I agree with current management stated by Dr Lorenzo MD,PGY1. Plan of care was discussed with the attending physician and resident physician. Disclaimer: Despite multiple revisions, due to the dictation software being used, the document bellow may not be free of grammatical errors including phonetic/typographic errors. However, this does not deter from our commitment to providing health care in the patient's best interest in mind. Dr. Constantino MD, PGY 2 Planned Discharge Date 02/24/24 DS: Providers Provider Date of admission: 02/22/24 17:36 Primary care physician: Physician No Primary/Family Admitting Provider: Calderon Castillo MD Attending Provider on Admission: Calderon Castillo MD Consults: 02/22/24 17:45 Consult to Nephrology Stat Comment: Hyponatremia Consulting Provider: Tess Arnold 02/22/24 17:48 Health Equity Referral - Knowledge Deficit Routine Comment: Positive screening for knowledge deficit needs. 02/22/24 17:49 Health Equity Referral - Nutrition Routine Comment: Positive screening for nutrition needs. Health Equity Referral - Safety Routine Comment: Positive screening for safety needs. Attending Provider on DC: Lorenzo Eaton MD Discharging Provider: Lorenzo Eaton MD DS: Diagnosis Problem List Completed Was Problem List Reviewed/Reconciled?: Yes Hospital Course Hospital Course Hospital course: Patient is a 63-year-old male with no past medical history. He has no PCP and has never seen a doctor in his life. Patient presented today with a chief complaint of leg swelling and abdominal distention. Patient to be admitted for treatment and management of severe hyponatremia. Patient's anemia on admission 119, OSM 236. Patient was treated with fluid restriction etiology of hyponatremia was deemed to be beer potomania most likely. In the first 24 hours patient's initially overcorrected to NA 127 and 500 cc D5W was started to slow the rate. On the second day NA improved to 131. Patient was also found to have severe ascites and lower extremity edema 4+ pitting up to his hips B/L. Patient had a therapeutic paracentesis which removed 7.2 L of fluid and was repleted with 100 g albumin IV and given Lasix 40 Mg IV x 1 as per nephrology recommendations. Patient was also started on lactulose for hepatic encephalopathy prophylaxis. All patient's labs are now returned and to normal limits. Patient is now clinically stable and fit for discharge back to home. Discharge diagnoses: 1. Severe hypotonic asymptomatic acute on chronic hyponatremia?resolving 2. Hypochloremia?resolving 3. Likely decompensated alcoholic liver cirrhosis with ascites?chronic 4. Alcohol dependence?chronic 5. Nicotine dependence?chronic 6. Hyperbilirubinemia Discharge plan: ? You have been started on a medication Lasix, take 1 tablet once a day. ? You have also been started on a medication spironolactone take 1 tablet once a day, this is for your swelling. If your blood pressure is too low, top number <100 do not take your dose for that day. ? You have been started on a medication lactulose take 20 g twice daily as needed to achieve 2?3 bowel movements per day. Increase or decrease dose as necessary. ? Apply nystatin ointment topically for 3 more days to the affected area. ? Take rest of medications as prescribed. ? Patient extensively counseled and advised on smoking and alcohol cessation. Patient agreed. Patient was started on nicotine patch. ? Please follow-up with your PCP within 2 weeks of discharge for possible referral to barbering instructor for cirrhosis. ? If any new or worsening of symptoms call 911, call your PCP or report to the emergency department. We are grateful to be able to participate in Mr. Vilchis's care. We wish him the best. Plan of care discussed with Attending Dr. Price and PGY2 Dr. Constantino Eaton MD PGY 1 Time Spent with Patient Time attestation: Total time spent providing and/or coordinating discharge services: Time spent: Greater than 30 minutes (36) Exam Vital Signs Temp Pulse Resp BP Pulse Ox O2 Del Method O2 Flow Rate 98.0 F 96 19 109/70 95 Nasal Cannula 1 02/24/24 08:00 02/24/24 09:19 02/24/24 08:00 02/24/24 09:19 02/24/24 08:00 02/24/24 08:00 02/24/24 08:00 Narrative Exam Constitutional Alert, oriented x 3 and comfortable. Elderly male, temporal wasting, cachectic HEENT Vision grossly intact. Patent nares. Trachea midline Respiratory Chest normal on inspection and poor inspiratory effort, polyphonic wheeze heard throughout lung milner. Cardiovascular S1 and S2 audible, RRR. No murmurs carotid bruit. No gross JVD. Abdominal Distended and non tender to palpation in all quadrants. BS +. Bandage from paracentesis noted in right lower quadrant Genitourinary No bladder tenderness, no flank pain. Normal to palpation Musculoskeletal Extremities tone within normal limits. 4+ lower extremity edema up to mid thighs Neurological CN II - XII grossly intact. Extremity motor and sensation grossly intact. Skin Warm, dry and intact. Erythematous rash in groin area Psychiatric Patient has good affect, is cooperative Discharge Plan Plan Patient Disposition: HOME (Self Care) Patient condition on transfer: Stable Care Plan Goals: Take Lasix 20 mg once a day and spironolactone 50 mg once a day daily for the swelling related to your cirrhosis Take lactulose 20 g twice daily as needed for constipation goal of bowel movements 2?3 every day Apply nystatin topically for 3 more days on the area of infection Take all medication as prescribed Advised to stop drinking alcohol completely Advised to apply nicotine patch on his arm for smoking cessation Follow-up with PCP as outpatient within 2 weeks In case of emergency, call [phone] and come back to the ED Patient can follow-up in [facility] [phone] Prescriptions/Referrals Prescriptions/Med Rec: New nicotine 21 mg/24 hr Patch 24 Hour 21 mg top QDAY 30 Days Qty: 30 0RF folic acid 1 mg Tablet 1 mg PO BID 60 Days Qty: 120 0RF thiamine mononitrate (vit B1) 100 mg Tablet 100 mg PO BID 60 Days Qty: 120 0RF nystatin 100,000 unit/gram cream 1 applic topical BID 3 Days Qty: 15 0RF furosemide [Lasix] 20 mg tablet 20 mg PO QAM Qty: 90 0RF spironolactone 50 mg tablet 50 mg PO QDAY Qty: 90 0RF lactulose 10 gram/15 mL solution 20 g PO BID PRN (Reason: constipation) Qty: 3785 0RF No Action naltrexone 50 mg Tablet 50 mg PO QDAY Referrals: No Primary/Family,Physician [Primary Care Provider] - Patient/Caregiver Discharge Instructions Education Materials: Alcoholism Resources, Alcohol Addiction, Alcohol Withdrawal: What to Expect Print Language: [place] Stand Alone Forms: Patient Portal Info Letter Discharge Order Discharge Orders: Discharge (Routine); Ordered 02/24/24 Ordered By: Bridget Adamson Quality Discharge Quality Measures VTE prophylaxis
[2024-02-24 09:54] LABS: Sodium 130 mMol/L (136-145)
[2024-02-24] MEDS: NYSTATIN TOP (10:23)
[2024-02-24] MEDS: POLYETHYLENE GLYCOL 17 GM PACKET PO (11:29)
[2024-02-24 12:00] VITALS: BP 101/66; PULSE 79; PULSE 97; RESP 15; TEMP 37.1; O2SAT 96
--- NOTE | 2024-02-24 14:47 | ESPR_ITS ---
Documentation for date of: 02/24/24 Subjective Subjective Interval history: Mr. Vilchis is a 63-year-old male with a previous medical history of alcohol use disorder, liver cirrhosis that came to the ED with complaints of abdominal distention and lower extremity edema. Patient's last drink was few days ago. ED workup showed low sodium of 119, hypoosmolar plasma. Physical examination and imaging showed signs of abdominal effusion, patient underwent pleurocentesis and 7 L of fluid was removed. He received 50 g of albumin IV and was placed on fluid restriction and CIWA protocol. Patient did not see any physician for years. Poor historian. Renal consultation requested for hyponatremia. In the emergency department-BP 132/80, HR 97, RR?20, T?98F, SpO2 98% on RA. Labs significant for NA 119, K3.6, CL 86, BUN <5, CR 0.4, T.bili 3.5, AST 97, ALT 49, ALP 176. Chest x-ray showed no signs of consolidation, pulmonary edema or pleural effusion. Lower extremity Doppler was also negative for any thrombosis. Patient had therapeutic paracentesis in the ER and drained 7.2L of fluid. 02/23/24: Patient was seen and examined by the bedside. No acute events overnight. Overnight his sodium went up rapidly and normal saline was given. Currently sodium stabilized at 127. Alert and awake. No seizures no confusion noted. He reports that his swelling has improved, denies shortness of breath, chest pain, abdominal pain. Will start albumin 50 g IV for fluid resuscitation today and will do Lasix 40 mg IV once. Continue with fluid restriction. Goal sodium druze is 4 to 6 mEq/day. 02/24/24: Patient was seen and examined by the bedside. No acute events overnight. Denies shortness of breath, chest pain, abdominal pain. Sodium went up to 131. Patient received 1 L of fluids yesterday. Alert and awake, conversational. Continues to have tibial pitting edema, received Lasix 40 mg once. Patient was deemed medically stable for discharge home. Exam Vital Signs Temp Pulse Resp BP Pulse Ox O2 Del Method O2 Flow Rate 98.7 F 79 15 101/66 96 Room Air 1 02/24/24 12:00 02/24/24 12:00 02/24/24 12:02/24/24 12:02/24/24 12:24 12:00 02/24/24 08:00 Narrative Exam Physical Exam General: Awake and in no acute distress. Conversational and non-toxic appearing. AOx3 HEENT: Normocephalic, atraumatic, mucous membranes moist. Slightly icteric conjunctiva. Heart: Regular rate and rhythm, no murmurs. Lungs: Bilateral diffuse wheezing. Abdomen: Soft,significantly distended with prominent subcutaneous veins, nontender, positive bowel sounds. ?No guarding or rebound tenderness. ++ Ascites Neurologic: Alert and oriented x3, no gross neurological deficit, and patient able to move all 4 extremities. Extremities: Moderate pitting bilateral tibial edema. Skin: No rash or ecchymoses. Objective Labs 02/24/24 05:30 02/24/24 09:35 Labs: Laboratory Results - last 24 hr 02/23/24 02/23/24 02/24/24 17:56 21:45 01:47 WBC RBC Hgb Hct MCV MCH MCHC RDW Std Deviation Plt Count Neut % (Auto) Lymph % (Auto) Alfalfa % (Auto) Eos % (Auto) Baso % (Auto) Neut # (Auto) Lymph # (Auto) Alfalfa # (Auto) Eos # (Auto) Baso # (Auto) Immature Gran # (Auto) Absolute Nucleated RBC Immature Gran % Nucleated RBC % Sodium 128 L 130 L 131 L Potassium Chloride Carbon Dioxide Anion Gap BUN Creatinine Estim Creat Clear Calc eGFR BUN/Creatinine Ratio Glucose Calculated Osmolality Calcium Corrected Calcium Phosphorus Magnesium Total Bilirubin AST ALT Alkaline Phosphatase Total Protein Albumin Globulin Albumin/Globulin Ratio 02/24/24 02/24/24 05:30 09:35 WBC 6.8 RBC 3.93 L Hgb 12.2 L Hct 35.1 L MCV 89 MCH 31.0 MCHC 34.8 RDW Std Deviation 47.6 H Plt Count 143 Neut % (Auto) 68 Lymph % (Auto) 12 Alfalfa % (Auto) 17 H Eos % (Auto) 2 Baso % (Auto) 1 Neut # (Auto) 4.6 Lymph # (Auto) 0.9 L Alfalfa # (Auto) 1.1 H Eos # (Auto) 0.1 Baso # (Auto) 0.1 Immature Gran # (Auto) 0.03 H Absolute Nucleated RBC 0.00 Immature Gran % 0 Nucleated RBC % 0 Sodium 131 L 130 L Potassium 3.4 Chloride 97 L Carbon Dioxide 26.9 Anion Gap 7 BUN < 5 L Creatinine 0.4 L Estim Creat Clear Calc 193.1 eGFR > 60 BUN/Creatinine Ratio 13 Glucose 116 H Calculated Osmolality 260 L Calcium 8.3 Corrected Calcium 8.9 Phosphorus 2.8 Magnesium 2.0 Total Bilirubin 1.9 H D AST 40 H ALT 30 Alkaline Phosphatase 106 D Total Protein 5.2 L Albumin 3.2 L Globulin 2.0 L Albumin/Globulin Ratio 1.6 Quality Measures Quality Measures VTE prophylaxis Assessment & Plan Assessment Current Active Medications: Generic Name Dose Route Start Last Admin Trade Name Freq PRN Reason Stop Dose Admin Acetaminophen 650 mg 02/22/24 17:36 Acetaminophen 325 Mg Tablet PO 03/23/24 17:35 Q6H PRN Fever >100.4 Acetaminophen 650 mg 02/22/24 17:36 Acetaminophen 325 Mg Tablet PO 03/23/24 17:35 Q6H PRN PAIN SCALE 1-3 (mild Hydrocodone Bitart/Acetaminophen 1 tab 02/22/24 17:36 Hydrocodone/Apap 10/325 Tab PO 02/27/24 17:35 Q4H PRN PAIN SCALE 4-6 (Moderate Albuterol/Ipratropium 3 ml 02/22/24 17:36 Albuterol/Ipratropium (Duoneb) Rt Mallory 3 Ml Nebu INH 03/23/24 17:35 Q2HR PRN SHORTNESS OF BREATH OR WHEEZE Folic Acid 1 mg 02/22/24 21:00 02/22/24 20:17 Folic Acid 1 Mg Tablet PO 02/27/24 20:59 1 mg BID JAMMIE Administration Heparin Sodium (Porcine) 5,000 unit 02/22/24 17:45 02/23/24 05:21 Heparin Sod Inj 5000 Unit/Ml Vial SC 03/07/24 17:44 5,000 unit Q12H JAMMIE Administration Magnesium Sulfate 2 gm in 50 mls @ 25 mls/hr 02/23/24 07:57 Magnesium Sulfate Ivpb IV 02/23/24 09:56 X1 ONE Lactulose 10 gm 02/22/24 21:00 02/22/24 20:17 Lactulose Syrup 20 Gm/30 Ml Udc PO 03/23/24 20:59 10 gm BID JAMMIE Administration Protocol Lorazepam 0.5 mg 02/22/24 17:42 Lorazepam 0.5 Mg Tablet PO 02/27/24 17:41 Q4HR PRN CIWA Score 2-6 Lorazepam 1 mg 02/22/24 17:42 Lorazepam 0.5 Mg Tablet PO 02/27/24 17:41 Q4HR PRN CIWA SCORE 7-11 Lorazepam 2 mg 02/22/24 17:42 Lorazepam 0.5 Mg Tablet PO 02/27/24 17:41 Q4HR PRN CIWA SCORE 12-15 Lorazepam 2 mg 02/22/24 17:42 Lorazepam 2 Mg/Ml Vial IV 02/27/24 17:41 Q2HR PRN CIWA SCORE 20-25 Morphine Sulfate 1 mg 02/22/24 17:36 Morphine Sulf Inj 10 Mg/Ml Vial IVP 02/27/24 17:35 Q4H PRN PAIN SCALE 7-10 (Severe Nicotine 21 mg 02/22/24 17:45 02/22/24 20:05 Nicotine Patch 21 Mg/24 Hr Patch.Td24 TOP 03/23/24 17:44 21 mg QDAY JAMMIE Administration Ondansetron HCl 4 mg 02/22/24 17:36 Ondansetron Inj 2 Mg/Ml Inj 2 Ml IV 03/23/24 17:35 Q6H PRN NAUSEA OR VOMITING Protocol Pantoprazole Sodium 40 mg 02/22/24 17:45 02/22/24 18:28 Pantoprazole 40 Mg Tablet PO 03/23/24 17:44 40 mg QDAY JAMMIE Administration Potassium Chloride 20 meq 02/23/24 09:00 Potassium Chloride 20 Meq Tabcr PO 02/23/24 09:01 X1 ONE Thiamine HCl 100 mg 02/22/24 21:00 02/22/24 20:17 Thiamine 100 Mg Tablet PO 02/27/24 20:59 100 mg BID JAMMIE Administration Plan atphli is a 63-year-old male with no past medical history. He has no PCP and has never seen a doctor in his life. Patient presented today with a chief complaint of leg swelling and abdominal distention. Patient to be admitted for treatment and management of severe hyponatremia. #Mild hypoosmolar hyponatremia, improving Patient has a longstanding history of alcohol use disorder, beer intake. Urinalysis showed specific gravity 1005 Hyponatremia most likely in the setting of beer potomania(patient admits to drinking more than 10 beers per day). Urine electrolytes are low, which makes SIADH less likely. Plan: ?Follow-up with PCP in 2 weeks #Decompensated alcoholic liver cirrhosis #Ascites Patient had lower extremity and abdominal swelling for the past month and a half. He was prescribed Lasix by [facility] which initially helped but then the swelling started to get worse. 02/22/24:On exam patient has 4+ pitting edema to mid thighs and severe abdominal distention. Meld?NA score: 24 points; 14-15% 90-day mortality Child?Vincent score : 10 points. Child class C. Life expectancy 1-3 years. T. bili 3.5 on admission, AST 97, ALT 49, ALP 176. PT elevated at 15.5. 02/22/24: Patient has therapeutic paracentesis with drain 7.2 L of fluid and was repleted with 50 g albumin. 02/23/24: Patient's edema has improved. Patient was started on 50 g albumin again to replete volume after paracentesis. Will diurese with Lasix to improve edema. Hepatitis panel negative. Plan: ? Lasix 40 mg once ?Follow-up outpatient with PCP in 2 weeks #Alcohol use disorder #Nicotine dependence #Hyperbilirubinemia ? Management as per primary team. Plan of care discussed with attending Dr. Arnold. Lisa Contreras MD, PGY 1. Attending Provider Attestation/Addendum I have examined the patient, reviewed labs and imaging findings, discussed the case with the resident(s), and reviewed entered orders. I agree with the plan of care as outlined in this note, with these additional summaries/recommendations: # Hypotonic Hypochloremic hyponatremia Likely Acute on Chronic Presented with sodium 119 and serum osmolality 236 Volume status: Hypervolemic DDx: Likely multifactorial secondary to low solute intake from beer potomania plus likely underlying cirrhosis. Sodium markedly improved. Emphasized fluid/beer abstinence. # Cirrhosis # Hyperbilirubinemia # Ascites Most likely has underlying cirrhosis secondary to chronic alcohol use On admission total bilirubin 3.5, AST 97, ALP 176 Status post paracentesis on 02/22/2024 with 7.2 L removed in the emergency department. Unfortunately fluid was not collected for analysis. Albumin replaced Avoid hepatotoxic agents. Patient would benefit from outpatient referral to gastroenterology once medically cleared and complete cessation of alcohol use. Order CT ABD/PLV for further evaluation # Alcohol withdrawal Does not appear to have alcohol withdrawal symptoms at this time although patient endorses drinking 12-18 beers a day plus tequila for approximately the last 40 years. We will monitor patient closely as he is high risk for withdrawal although noted he recently was prescribed naltrexone. Continue [facility] protocol. # Nicotine dependence
[2024-02-28 06:53] LABS: Osmolality, Urine* 158 mOsm/kg (50-1200)
== END 2024-02-24 13:33 | disposition home or self-care (01) | DRG 426 ==
LOC: SERX 11:14 → SERHOLD 18:14 → S2NX 23:12
PROVIDERS: Nurse Practitioner Primary Care; Admitting Provider Student in an Organized Health Care Education/Training Program; Emergency Provider Emergency Medicine; Visit Provider Student in an Organized Health Care Education/Training Program
DX: E87.1 Hypo-osmolality and hyponatremia (principal); F10.239 Alcohol dependence with withdrawal, unspecified; K70.31 Alcoholic cirrhosis of liver with ascites; R63.4 Abnormal weight loss; F17.210 Nicotine dependence, cigarettes, uncomplicated; E87.8 Other disorders of electrolyte and fluid balance, not elsewhere classified; D64.9 Anemia, unspecified; B35.6 Tinea cruris
CPT/HCPCS: 36415; 71046; 74177; 80053; 80061; 80069; 80074; 80307; 81001; 82436; 82570; 83735; 83880; 83935; 84100; 84133; 84295; 84300; 84550; 85025; 85610; 85730; 93306; 93970; 96365; 96366; 96372; 99291; A4649; C1729; J1643; J1940; J3475; J3490; J7042; P9047; Q9967; A9270; J1644

== ENCOUNTER 2024-03-06 12:00 | Emergency (ER) | payer MEDICAID, SELFPAY ==
[2024-03-06 12:01] VITALS: BMI 29.0
[2024-03-06 12:52] VITALS: BP 137/74; PULSE 104; RESP 19; TEMP 36.8; O2SAT 95; BMI 27.8
--- NOTE | 2024-03-06 12:54 | XR_ITS ---
Examination: Ultrasound-guided paracentesis Abdominal sonogram limited Date and time of exam: March 06, 2024 1358 hours INDICATIONS: Cirrhosis, increasing ascites and abdominal distention this week Informed consent provided. A timeout was completed verifying correct patient, procedure, site, positioning, and special adequate movement if applicable. Technique: Multiple sonographic images of the abdomen have been obtained. Appropriate area for paracentesis was marked. Local anesthesia is obtained with 1% lidocaine. Yueh catheter is successfully introduced. Findings: Abdominal sonographic images demonstrate sufficient ascitic fluid for paracentesis. After placing the Yueh catheter, 11,400 cc of fluid were successfully removed. During and after completion of the procedure the patient appear in satisfactory and stable condition with no complications observed. Estimated blood loss 0 cc Impression: Abdominal ascites Successful ultrasound-guided paracentesis as described above
--- NOTE | 2024-03-06 15:38 | XR_ITS ---
Examination: Shoulder,left, 3 views Technique: Shoulder AP internal rotation, AP external rotation, Y view shoulder, 3 views Exam date and time :March 06, 2024 1545 hours INDICATIONS: Patient fell today with injury to the shoulder, shoulder pain. FINDINGS: No shoulder fracture or dislocation No acute joint separation IMPRESSION: No shoulder fracture or dislocation
[2024-03-06] MEDS: ALBUMIN HUMAN 25% IVPB 12.5 GM/50 ML BTL IV ×2 (16:14)
--- NOTE | 2024-03-06 16:47 | EDNOTE_ITS ---
ED Abdominal Pain RME/HPI General Chief Complaint: Abdominal Pain Stated complaint: ABD DISTENTION, SWELLING WANTS PARACENTESIS Time seen by provider: 03/06/24 12:53 Arrival date/time: 03/06/24 12:00 63-year-old male with medical history significant for cirrhosis and ascites presents the emergency department requesting paracentesis patient also reports he has left shoulder pain worse with movement patient reports no chest pain or shortness of breath Limitations: no limitations Related Data Home Medications ?Medication ?Instructions ?Recorded ?Confirmed naltrexone 50 mg tablet 50 mg PO QDAY 02/23/24 02/23/24 Previous Rx's ?Medication ?Instructions ?Recorded folic acid 1 mg tablet 1 mg PO BID 60 days #120 tabs 02/24/24 furosemide 20 mg tablet (Lasix) 20 mg PO QAM #90 tabs 02/24/24 lactulose 10 gram/15 mL oral 20 g (30 mL) PO BID PRN 02/24/24 solution constipation #3,785 mL nicotine 21 mg/24 hr daily 21 mg top QDAY 30 days #30 ea 02/24/24 transdermal patch spironolactone 50 mg tablet 50 mg PO QDAY #90 tabs 02/24/24 thiamine mononitrate (vit B1) 100 100 mg PO BID 60 days #120 tabs 02/24/24 mg tablet Allergies Allergy/AdvReac Type Severity Reaction Status Date / Time No Known Allergies Allergy Verified 03/06/24 12:03 Review of Systems Review of Systems Systems Reviewed: All systems reviewed, normal except as documented Constitutional Constitutional: Reports system reviewed and no additional complaints, except as documented, Denies fever(s) and Denies headache(s) Eyes Eyes: Reports system reviewed and no additional complaints, except as documented and Denies blurry vision ENT Ears, Nose, Mouth, and Throat: Reports system reviewed and no additional complaints, except as documented, Denies headache(s), Denies nasal congestion and Denies nasal discharge Cardiovascular Cardiovascular: Reports system reviewed and no additional complaints, except as documented, Denies chest pain and Denies dyspnea Respiratory Respiratory: Reports system reviewed and no additional complaints, except as doc umented, Denies chest congestion, Denies cough and Denies dyspnea Gastrointestinal Gastrointestinal: Reports system reviewed and no additional complaints, except as documented, Reports abdominal pain and Reports other (Abdominal distention) Integumentary/Breasts Skin/Breast: Reports system reviewed and no additional complaints, except as documented and Denies rash Neurologic Neurologic: Reports system reviewed and no additional complaints, except as documented, Reports as per HPI and Denies headache(s) Past Medical History Past Medical History CARDIAC: Negative Cardiac Disorders or Congestive Heart Failure RESPIRATORY: Negative Chronic Obstructive Pulmonary Disease (COPD) or Asthma GENITOURINARY: Negative Renal Disease ENDOCRINE: Negative Diabetes Mellitus Type 1 or Diabetes Mellitus Type 2 HEMATOLOGIC: Negative Sickle Cell Disease Social History SMOKING STATUS: Smoker, status unknown ED Exam General Limitations: Present no limitations General appearance: Present alert and in no apparent distress Head Head exam: Present atraumatic Eye Eye exam: Present normal appearance, PERRL and EOMI ENT ENT exam: Present normal exam, normal oropharynx and mucous membranes moist Neck Neck exam: Present normal inspection, full ROM and trachea midline Chest Chest inspection: Present normal inspection and symmetric chest wall rise Respiratory Respiratory exam: Present normal lung sounds bilaterally Cardiovascular Cardiovascular exam: Present regular rate, normal rhythm and normal heart sounds Abdominal Exam Abdominal exam: Present soft, distention and normal bowel sounds; Absent tenderness, guarding, rebound, rigidity, Mccollum's sign or tenderness at McBurney's Point Abdominal tenderness: Absent RUQ or RLQ Extremities Exam Extremities exam: Present normal inspection and full ROM Back Exam Back exam: Present normal inspection and full ROM Neurological Exam Neurological exam: Present alert, oriented X3 and CN II-XII intact Psychiatric Psychiatric exam: Present normal affect and normal mood Skin Skin exam: Present warm, dry, intact and normal color Course Quality Measures none Orders Category Date Time Status Insert IV NOW Care 03/06/24 15:38 Completed US paracentesis abd w/image Stat Exams 03/06/24 12:54 Completed XR shoulder LT min 2V Stat Exams 03/06/24 15:38 Completed Albumin Human 25% Ivpb [Albuminar-25 Ivpb] Med 03/06/24 15:38 Discontinued 12.5 gm in 50 ml IV X1 Albumin Human 25% Ivpb [Albuminar-25 Ivpb] Med 03/06/24 15:38 Discontinued 12.5 gm in 50 ml IV X1 Lidocaine 1% Pf 30 ml [Xylocaine 1% Pf 30 ml] Med 03/06/24 14:03 Discontinued 30 ml .ROUTE .STK-MED ONE Vital Signs Vital signs: Vital Signs Temperature 98.2 F 03/06/24 12:52 Pulse Rate 104 H 03/06/24 12:52 Respiratory Rate 19 03/06/24 12:52 Blood Pressure 137/74 H 03/06/24 12:52 Pulse Oximetry (%) 95 03/06/24 12:52 Oxygen Delivery Method Room Air 03/06/24 12:52 O2 saturation 95% room air within normal limits Abdominal Pain MDM MDM Narrative MDM Narrative:: 63-year-old male with medical history significant for cirrhosis and ascites presents the emergency department requesting paracentesis patient also reports he has left shoulder pain worse with movement patient reports no chest pain or shortness of breath Imaging left shoulder obtained no acute fracture dislocation noted Paracentesis completed patient was given 2 bottles of albumin At time of reevaluation patient has swelling to his abdomen consistent with ascites and cirrhosis Paracentesis completed Patient discharged home in no distress to follow-up with primary care doctor in the next 24 to 48 hours and for any worsening symptoms to return to the ER immediately Patient data External records reviewed:: [facility] previous records Clinical information provided by:: patient Social determinants that could affect healthcare access:: none Patient has the following chronic illnesses:: None How is presenting disease/condition affected by chronic disease/condition?: no chronic disease Evaluation data The following diagnostics were reviewed and interpreted by me:: radiology exam(s) Lab and/or radiology exams considered but not ordered:: Radiology obtained Interpretation Summary: Reviewed by me Medications / Prescriptions Medications or Prescriptions considered but not ordered:: Given Medication administrations:: Medication Administration History Discontinued Medications Albumin Human (Albuminar-25 Ivpb) 12.5 gm in 50 mls @ 50 mls/hr IV X1 ONE Stop: 03/06/24 16:37 Last Infusion: 03/06/24 16:58 Dose: Infused Documented By: Admin: 03/06/24 16:14 Dose: 50 mls/hr Documented By: SUKHI Albumin Human (Albuminar-25 Ivpb) 12.5 gm in 50 mls @ 50 mls/hr IV X1 ONE Stop: 03/06/24 16:37 Last Infusion: 03/06/24 16:58 Dose: Infused Documented By: Admin: 03/06/24 16:14 Dose: 50 mls/hr Documented By: SUKHI Lidocaine HCl (Lidocaine Inj Pf 1% 30 Ml Vial) Confirm Administered Dose 30 ml .ROUTE .STK-MED ONE Stop: 03/06/24 14:04 Last Admin: 03/06/24 16:15 Dose: Not Given Documented By: SUKHI Non-Admin Reason: given in IR for paracenthesis Given Consultations Consultation(s) initiated? (list below): No Diagnosis Differential diagnosis abdominal pain: other (Cirrhosis, ascites) Most likely diagnosis given after review of the tests above:: Ascites, cirrhosis Admission Indicated Admission indicated?: not indicated Admission Request Was there a request for admission?: No Disposition Plan Disposition Plan: Discharge Discharge Attestation Discharge Attestation: The patient and all family members were given an opportunity to ask questions and understood the discharge instructions. Discharge instructions specifically effects, indications for sooner follow up or return to the emergency department, and the expected course of current diagnosis. Patient condition: Stable Discharge Plan Plan Patient Disposition: HOME (Self Care) Disposition Comment: Stable Prescriptions/Referrals Prescriptions/Med Rec: No Action naltrexone 50 mg Tablet 50 mg PO QDAY nicotine 21 mg/24 hr Patch 24 Hour 21 mg top QDAY 30 Days Qty: 30 0RF folic acid 1 mg Tablet 1 mg PO BID 60 Days Qty: 120 0RF thiamine mononitrate (vit B1) 100 mg Tablet 100 mg PO BID 60 Days Qty: 120 0RF furosemide [Lasix] 20 mg tablet 20 mg PO QAM Qty: 90 0RF spironolactone 50 mg tablet 50 mg PO QDAY Qty: 90 0RF lactulose 10 gram/15 mL solution 20 g PO BID PRN (Reason: constipation) Qty: 3785 0RF Problem List Clinical Impression: Alcoholic cirrhosis of liver, Ascites Patient/Caregiver Discharge Instructions Education Materials: Paracentesis Additional Instructions: Please follow up with your primary care doctor in the next 24-48hrs for any worsening symptoms return here immediately Print Language: Grenadian Stand Alone Forms: Priyanka Award Info., Patient Portal Info Letter PA/SERVICE AIDE Supervising Physician PA/SERVICE AIDE Supervising Physician: Dr Bruner
== END 2024-03-06 16:59 | disposition home or self-care (01) ==
PROVIDERS: Emergency Provider Emergency Medicine
DX: K70.31 Alcoholic cirrhosis of liver with ascites (principal); S49.92XA Unspecified injury of left shoulder and upper arm, initial encounter; W19.XXXA Unspecified fall, initial encounter
CPT/HCPCS: 49083; 73030; 99284; P9047

== ENCOUNTER 2024-03-16 09:13 | Emergency (ER) | payer MEDICAID, SELFPAY ==
[2024-03-16 10:03] VITALS: BP 129/82; PULSE 100; RESP 20; TEMP 36.8; O2SAT 97; BMI 30.4
--- NOTE | 2024-03-16 10:26 | XR_ITS ---
Examination: Ultrasound-guided paracentesis Abdominal sonogram limited Date and time of exam: March 16, 2024 1233 hours INDICATIONS: Cirrhosis, increasing ascites and abdominal distention this week Informed consent provided. A timeout was completed verifying correct patient, procedure, site, positioning, and special adequate movement if applicable. Technique: Multiple sonographic images of the abdomen have been obtained. Appropriate area for paracentesis was marked. Local anesthesia is obtained with 1% lidocaine. Yueh catheter is successfully introduced. Findings: Abdominal sonographic images demonstrate sufficient ascitic fluid for paracentesis. After placing the Yueh catheter, 9,200 cc of fluid were successfully removed. During and after completion of the procedure the patient appear in satisfactory and stable condition with no complications observed. Estimated blood loss 0 cc Impression: Abdominal ascites Successful ultrasound-guided paracentesis as described above
--- NOTE | 2024-03-16 10:27 | PD.EDRME ---
Rapid Medical Screening Exam RME Arrival date/time: 03/16/24 09:13 63-year-old male presents to the emergency department requesting paracentesis. I have greeted and performed a focused initial assessment of this patient. Initial appropriate labs ordered at this time. A comprehensive ED assessment and evaluation of the patient and analysis of all test and completion of medical decision making process will be conducted by additional ED provider. Chief Complaint: Abdominal Pain Time Seen by Provider: 03/16/24 09:45 Vital signs: Vital Signs Temperature 98.2 F 03/16/24 10:03 Pulse Rate 100 03/16/24 10:03 Respiratory Rate 20 03/16/24 10:03 Blood Pressure 129/82 03/16/24 10:03 Pulse Oximetry (%) 97 03/16/24 10:03 Oxygen Delivery Method Room Air 03/16/24 10:03
[2024-03-16 11:16] LABS: Basophils # (Auto) 0.1 Thou/mm3 (0.0-0.2); Basophils % (Auto) 1 % (0-2.5); Eosinophils # (Auto) 0.1 Thou/mm3 (0.0-0.5); Eosinophils % (Auto) 1 % (0-10); Hematocrit 40.4 % (41.0-53.0); Hemoglobin 13.6 g/dL (13.5-16.0); Immature Granulocytes % (Auto) 0 % (0-0); Immature Granulocytes Auto 0.02 Thou/mm3 (0.00-0.00); Lymphocytes # (Auto) 0.9 Thou/mm3 (1.0-4.8); Lymphocytes % (Auto) 11 % (10-50); Mean Corpuscular HGB Conc 33.7 g/dl (31.0-37.0); Mean Corpuscular Hemoglobin 29.6 pg (25.0-35.0); Mean Corpuscular Volume 88 fL (80-100); Monocytes # (Auto) 1.4 Thou/mm3 (0.0-0.8); Monocytes % (Auto) 17 % (0-12); Neutrophils # (Auto) 5.7 Thou/mm3 (1.8-7.7); Neutrophils % (Auto) 69 % (37-80); Nucleated Red Blood Cell % 0 /100 WBC (0); Platelet Count 272 Thou/mm3 (140-440); RDW Standard Deviation 46.9 fL (35.1-43.9); Red Blood Count 4.59 Miln/mm3 (4.50-5.90); White Blood Count 8.2 Thou/mm3 (3.8-10.6)
[2024-03-16 11:33] LABS: INR 1.1 (0.9-1.3); Prothrombin Time 11.7 Seconds (9.0-12.2)
[2024-03-16 11:39] LABS: Alanine Aminotransferase 29 U/L (10-49); Albumin, Serum 3.6 gm/dL (3.4-4.8); Albumin/Globulin Ratio 1.4 (1.2-2.2); Alkaline Phosphatase 157 U/L (46-116); Anion Gap 7 (7-16); Aspartate Amino Transferase 40 U/L (0-34); BUN/Creatinine Ratio 12 Ratio (12-20); Bilirubin,Total 1.5 mg/dL (0.3-1.2); Blood Urea Nitrogen 6 mg/dL (9-23); Calcium 8.7 mg/dL (8.3-10.6); Carbon Dioxide 27.3 mMol/L (20.0-31.0); Chloride 98 mMol/L (98-107); Creatinine (Component) 0.5 mg/dL (0.6-1.3); Estimated Creatinine Clearance 159.3 mL/min (>60); Globulin 2.6 gm/dL (2.3-3.5); Glucose 82 mg/dL (74-106); Osmolality,Calculated 261 (275-295); Potassium 4.1 mMol/L (3.4-5.1); Sodium 132 mMol/L (136-145); Total Protein 6.2 gm/dL (5.7-8.2); eGFR > 60 See Note
--- NOTE | 2024-03-16 14:21 | EDNOTE_ITS ---
<Statement entered by Lashae Fernandes MD - 03/16/24 17:06> As co-signing physician, I was present and available for consult prn. I concur with the plan and care as documented by the midlevel provider. ED Abdominal Pain RME/HPI General Chief Complaint: Abdominal Pain Stated complaint: Abdominal distention X 2 weeks Time seen by provider: 03/16/24 09:45 Arrival date/time: 03/16/24 09:13 RME / HPI RME / HPI narrative: 63-year-old male patient with significant history of liver cirrhosis, came in for evaluation regarding request for paracentesis. Patient's been having worsening abdominal distention, with discomfort, severity moderate. Patient denies any shortness of breath. Patient last paracentesis was 2 weeks ago. Denies any fever. Related Data Home Medications ?Medication ?Instructions ?Recorded ?Confirmed naltrexone 50 mg tablet 50 mg PO QDAY 02/23/24 02/23/24 Previous Rx's ?Medication ?Instructions ?Recorded folic acid 1 mg tablet 1 mg PO BID 60 days #120 tabs 02/24/24 furosemide 20 mg tablet (Lasix) 20 mg PO QAM #90 tabs 02/24/24 lactulose 10 gram/15 mL oral 20 g (30 mL) PO BID PRN 02/24/24 solution constipation #3,785 mL nicotine 21 mg/24 hr daily 21 mg top QDAY 30 days #30 ea 02/24/24 transdermal patch spironolactone 50 mg tablet 50 mg PO QDAY #90 tabs 02/24/24 thiamine mononitrate (vit B1) 100 100 mg PO BID 60 days #120 tabs 02/24/24 mg tablet Allergies Allergy/AdvReac Type Severity Reaction Status Date / Time No Known Allergies Allergy Verified 03/06/24 12:03 Review of Systems Review of Systems Narrative Review of Systems: Review of system reviewed and within normal limits except mentioned in HPI ED Exam Narrative Physical exam: VITAL SIGNS: Reviewed. GENERAL APPEARANCE: Alert and interactive, follows commands, no acute distress, HEAD AND FACE: Non-traumatic. ENT: PERRL, pink conjunctivitis, eyelid no trauma, Mucous membrane moist. NECK: Supple, nontender, no nuchal rigidity. CHEST: No tenderness, no crepitus, no paradoxical movement, no retractions. LUNGS: Clear, well ventilated, symmetric, no rales, no wheezing, no ronchi, no stridor, good breath sounds bilaterally. HEART: Regular rate, regular rhythm, no murmur, no gallops. ABDOMEN: Soft, positive bowel sounds, abdominal distention, positive fluid wave test, no guarding, nontender, no rebound, no masses, RECTAL: Deferred. GENITAL: Deferred. NEUROLOGICAL: Gross motor function intact sensory function intact, Appropriate for age. MUSCULOSKELETAL: low back nontender, full range of motion. EXTREMITIES: Nontender, full range of motion. SKIN: Color pink, dry, no rash, no lacerations, no abrasions, no contusions. LYMPHATICS: Deferred. Course Quality Measures none Orders Category Date Time Status US paracentesis abd w/image Stat Exams 03/16/24 10:26 Completed CBC Stat Lab 03/16/24 10:33 Completed CMP [Comprehensive Metabolic Panel] Stat Lab 03/16/24 10:33 Completed PT [Prothrombin Time with INR] Stat Lab 03/16/24 10:33 Completed Albumin Human 25% Ivpb [Albuminar-25 Ivpb] Med 03/16/24 14:20 Discontinued 12.5 gm in 50 ml IV X1 Albumin Human 25% Ivpb [Albuminar-25 Ivpb] Med 03/16/24 14:20 Discontinued 12.5 gm in 50 ml IV X1 Lidocaine 1% Pf 30 ml [Xylocaine 1% Pf 30 ml] Med 03/16/24 12:03 Discontinued 30 ml .ROUTE .STK-MED ONE Vital Signs Vital signs: Vital Signs Temperature 98.2 F 03/16/24 10:03 Pulse Rate 100 03/16/24 10:03 Respiratory Rate 20 03/16/24 10:03 Blood Pressure 129/82 03/16/24 10:03 Pulse Oximetry (%) 97 03/16/24 10:03 Oxygen Delivery Method Room Air 03/16/24 10:03 Abdominal Pain MDM MDM Narrative MDM Narrative:: 63-year-old male patient with significant history of liver cirrhosis, came in for evaluation regarding request for paracentesis. Patient's been having worsening abdominal distention, with discomfort, severity moderate. Patient denies any shortness of breath. Patient last paracentesis was 2 weeks ago. Denies any fever. Patient had paracentesis, and were able to remove 9 L of ascitic fluid. Patient's workup today is significant for total bili 1.5 AST of 40 alkaline phos of 157. Patient data External records reviewed:: None Clinical information provided by:: none Social determinants that could affect healthcare access:: none Patient has the following chronic illnesses:: Liver cirrhosis, abdominal ascites How is presenting disease/condition affected by chronic disease/condition?: exacerbated by Evaluation data The following diagnostics were reviewed and interpreted by me:: lab results and radiology exam(s) Lab and/or radiology exams considered but not ordered:: None Interpretation Summary: Patient has successful ultrasound-guided paracentesis done by IR, removing more than 9 L of ascitic fluid. Patient's workup today is significant for total bili 1.5 AST of 40 alkaline phos 157. Medications / Prescriptions Medications or Prescriptions considered but not ordered:: None Medication administrations:: Medication Administration History Discontinued Medications Albumin Human (Albuminar-25 Ivpb) 12.5 gm in 50 mls @ 50 mls/hr IV X1 ONE Stop: 03/16/24 15:19 Last Admin: 03/16/24 14:52 Dose: 50 mls/hr Documented By: ER Albumin Human (Albuminar-25 Ivpb) 12.5 gm in 50 mls @ 50 mls/hr IV X1 ONE Stop: 03/16/24 15:19 Last Admin: 03/16/24 15:38 Dose: 50 mls/hr Documented By: SUKHI Lidocaine HCl (Lidocaine Inj Pf 1% 30 Ml Vial) Confirm Administered Dose 30 ml .ROUTE .STK-MED ONE Stop: 03/16/24 12:04 Last Admin: 03/16/24 15:38 Dose: Not Given Documented By: SUKHI Non-Admin Reason: given in IR albumin total of 25 g IV Consultations Consultation(s) initiated? (list below): No Diagnosis Differential diagnosis abdominal pain: abdominal pain and other (Ascites, liver cirrhosis) Most likely diagnosis given after review of the tests above:: Abdominal situs, history of liver cirrhosis Admission Indicated Admission indicated?: not indicated Explain why admission is indicated or not indicated:: Stable Admission Request Was there a request for admission?: No Disposition Plan Disposition Plan: Discharge Discharge Attestation Discharge Attestation: The patient was given an opportunity to ask questions and understood the discharge instructions. Discharge instructions specifically effects, indications for sooner follow up or return to the emergency department, and the expected course of current diagnosis. Patient condition: Stable Discharge Plan Plan Patient Disposition: HOME (Self Care) Disposition Comment: Stable Prescriptions/Referrals Prescriptions/Med Rec: No Action naltrexone 50 mg Tablet 50 mg PO QDAY nicotine 21 mg/24 hr Patch 24 Hour 21 mg top QDAY 30 Days Qty: 30 0RF folic acid 1 mg Tablet 1 mg PO BID 60 Days Qty: 120 0RF thiamine mononitrate (vit B1) 100 mg Tablet 100 mg PO BID 60 Days Qty: 120 0RF furosemide [Lasix] 20 mg tablet 20 mg PO QAM Qty: 90 0RF spironolactone 50 mg tablet 50 mg PO QDAY Qty: 90 0RF lactulose 10 gram/15 mL solution 20 g PO BID PRN (Reason: constipation) Qty: 3785 0RF Referrals: Wilner Dailey FNP [Primary Care Provider] - Problem List Clinical Impression: Alcoholic cirrhosis of liver, Abdominal ascites Patient/Caregiver Discharge Instructions Discharge Activity: activity as tolerated Education Materials: Paracentesis Dc, ED Ascites Additional Instructions: Thank you for the opportunity for serving you today. You are stable for discharged . You are advised to: Follow-up with your PCP in 1 to 2 days Return to ED for worsening of symptoms Print Language: Peruvian Stand Alone Forms: Priyanka Award Info., Patient Portal Info Letter ALLY/ANNETTE Supervising Physician LUCY Supervising Physician: MD Dom
[2024-03-16 14:24] VITALS: BP 119/74; PULSE 87; RESP 19; TEMP 36.8; O2SAT 96
[2024-03-16] MEDS: ALBUMIN HUMAN 25% IVPB 12.5 GM/50 ML BTL IV ×2 (14:52→15:38)
[2024-03-16 16:26] VITALS: BP 124/77; PULSE 79; RESP 16; TEMP 36.9; O2SAT 97
== END 2024-03-16 16:54 | disposition home or self-care (01) ==
PROVIDERS: Nurse Practitioner Primary Care; Emergency Provider Emergency Medicine; PCP Nurse Practitioner Family
DX: K70.31 Alcoholic cirrhosis of liver with ascites (principal)
CPT/HCPCS: 49083; 36415; 80053; 85025; 85610; 96365; 99284; C1729; P9047

== ENCOUNTER 2024-03-27 11:14 | Emergency (ER) | payer MEDICAID, SELFPAY ==
[2024-03-27 11:31] VITALS: BP 128/82; PULSE 109; RESP 19; TEMP 37.2; O2SAT 95; BMI 29.1
--- NOTE | 2024-03-27 11:31 | XR_ITS ---
Examination: Ultrasound-guided paracentesis Abdominal sonogram limited Date and time of exam: March 27, 1999 2552 hours INDICATIONS: Cirrhosis, increasing ascites this week Informed consent provided. A timeout was completed verifying correct patient, procedure, site, positioning, and special adequate movement if applicable. Technique: Multiple sonographic images of the abdomen have been obtained. Appropriate area for paracentesis was marked. Local anesthesia is obtained with 1% lidocaine. Yueh catheter is successfully introduced. Findings: Abdominal sonographic images demonstrate sufficient ascitic fluid for paracentesis. After placing the Yueh catheter, 10,800 cc of fluid were successfully removed. During and after completion of the procedure the patient appear in satisfactory and stable condition with no complications observed. Estimated blood loss 0 cc Impression: Abdominal ascites Successful ultrasound-guided paracentesis as described above
--- NOTE | 2024-03-27 11:31 | PD.EDRME ---
Rapid Medical Screening Exam E Arrival date/time: 03/27/24 11:14 63-year-old male with a history of cirrhosis presents to the emergency room with a chief complaint of abdominal distention, shortness of breath. Patient states he was sent over by his primary care provider for paracentesis. Patient states his last paracentesis was done here in the emergency room 2 weeks ago. Chief Complaint: Abdominal Pain Vital signs reviewed by provider: Yes
[2024-03-27 11:53] LABS: Basophils # (Auto) 0.1 Thou/mm3 (0.0-0.2); Basophils % (Auto) 1 % (0-2.5); Eosinophils # (Auto) 0.1 Thou/mm3 (0.0-0.5); Eosinophils % (Auto) 1 % (0-10); Hematocrit 40.7 % (41.0-53.0); Hemoglobin 13.7 g/dL (13.5-16.0); Immature Granulocytes % (Auto) 0 % (0-0); Immature Granulocytes Auto 0.02 Thou/mm3 (0.00-0.00); Lymphocytes # (Auto) 0.9 Thou/mm3 (1.0-4.8); Lymphocytes % (Auto) 12 % (10-50); Mean Corpuscular HGB Conc 33.7 g/dl (31.0-37.0); Mean Corpuscular Hemoglobin 28.9 pg (25.0-35.0); Mean Corpuscular Volume 86 fL (80-100); Monocytes # (Auto) 1.1 Thou/mm3 (0.0-0.8); Monocytes % (Auto) 14 % (0-12); Neutrophils # (Auto) 5.4 Thou/mm3 (1.8-7.7); Neutrophils % (Auto) 71 % (37-80); Nucleated Red Blood Cell % 0 /100 WBC (0); Platelet Count 233 Thou/mm3 (140-440); RDW Standard Deviation 46.7 fL (35.1-43.9); Red Blood Count 4.74 Miln/mm3 (4.50-5.90); White Blood Count 7.7 Thou/mm3 (3.8-10.6)
[2024-03-27 12:09] LABS: INR 1.1 (0.9-1.3); Partial Thromboplastin Time 28.5 Seconds (22.0-36.0); Prothrombin Time 11.5 Seconds (9.0-12.2)
[2024-03-27 12:14] LABS: Alanine Aminotransferase 25 U/L (10-49); Albumin, Serum 3.6 gm/dL (3.4-4.8); Albumin/Globulin Ratio 1.4 (1.2-2.2); Alkaline Phosphatase 125 U/L (46-116); Anion Gap 7 (7-16); Aspartate Amino Transferase 44 U/L (0-34); BUN/Creatinine Ratio 16 Ratio (12-20); Bilirubin,Total 1.2 mg/dL (0.3-1.2); Blood Urea Nitrogen 8 mg/dL (9-23); Calcium 8.5 mg/dL (8.3-10.6); Calcium (Corrected) 8.8 mg/dL (8.5-10.1); Carbon Dioxide 27.1 mMol/L (20.0-31.0); Chloride 98 mMol/L (98-107); Creatinine (Component) 0.5 mg/dL (0.6-1.3); Estimated Creatinine Clearance 161.2 mL/min (>60); Globulin 2.6 gm/dL (2.3-3.5); Glucose 99 mg/dL (74-106); Osmolality,Calculated 262 (275-295); Potassium 3.9 mMol/L (3.4-5.1); Sodium 132 mMol/L (136-145); Total Protein 6.2 gm/dL (5.7-8.2); eGFR > 60 See Note
[2024-03-27] MEDS: ALBUMIN HUMAN 25% IVPB 25 GM/100 ML BTL IV (14:47)
--- NOTE | 2024-03-27 14:51 | PD.EDADULT ---
ED General RME/HPI General Chief complaint: Abdominal Pain Stated complaint: ABD DISTENTION - NEEDS PARACENTESIS Time Seen by Provider: 03/27/24 14:50 Arrival date/time: 03/27/24 11:14 CC: Abdominal distention ascites HPI patient requesting a paracentesis last (was 2 weeks ago. Patient states he has no shortness of breath but the abdomen has been causing some pain because it so distended. Patient is awake alert oriented denies any chest pain or shortness of breath. RME / HPI RME / HPI narrative: 03/27/24 11:14 63-year-old male with a history of cirrhosis presents to the emergency room with a chief complaint of abdominal distention, shortness of breath. Patient states he was sent over by his primary care provider for paracentesis. Patient states his last paracentesis was done here in the emergency room 2 weeks ago. Related Data Home Medications ?Medication ?Instructions ?Recorded ?Confirmed naltrexone 50 mg tablet 50 mg PO QDAY 02/23/24 02/23/24 Previous Rx's ?Medication ?Instructions ?Recorded folic acid 1 mg tablet 1 mg PO BID 60 days #120 tabs 02/24/24 furosemide 20 mg tablet (Lasix) 20 mg PO QAM #90 tabs 02/24/24 lactulose 10 gram/15 mL oral 20 g (30 mL) PO BID PRN 02/24/24 solution constipation #3,785 mL spironolactone 50 mg tablet 50 mg PO QDAY #90 tabs 02/24/24 thiamine mononitrate (vit B1) 100 100 mg PO BID 60 days #120 tabs 02/24/24 mg tablet Allergies Allergy/AdvReac Type Severity Reaction Status Date / Time No Known Allergies Allergy Verified 03/06/24 12:03 Review of Systems Review of Systems Narrative Review of Systems: GEN: No fever, no chills, no weight loss EYES: No discharge, no visual changes, no pain HEENT: No ear pain, no congestion, no sore throat PULM: + shortness of breath, no cough, no congestion CV: No chest pain, no dyspnea on exertion, no palpitations GI: No nausea, no vomiting, no diarrhea, no pain, no constipation : No frequency, no urgency, no dysuria MUSC/SKEL: No joint pain, no back pain SKIN: No rash PSYCH: No hallucinations, no depression HEME/LYMPH: No easy bleeding or bruising tendencies NEURO: No weakness, no headache Past Medical History Past Medical History CARDIAC: Negative Cardiac Disorders or Congestive Heart Failure RESPIRATORY: Negative Chronic Obstructive Pulmonary Disease (COPD) or Asthma GENITOURINARY: Negative Renal Disease ENDOCRINE: Negative Diabetes Mellitus Type 1 or Diabetes Mellitus Type 2 HEMATOLOGIC: Negative Sickle Cell Disease Social History SMOKING STATUS: Current some day smoker ED Exam Narrative Physical exam: [General: Not in any acute distress Head normocephalic HEENT: Within acceptable limits Neck is supple nontender Chest equal chest rise nontender to palpation Respiratory: Clear to auscultation no wheezes crackles or rubs CV: Rate rhythm is regular no murmurs rubs or clicks Abdomen is grossly distended secondary to ascites, firm but not rigid. nontender. Back: No CVA tenderness no spinous process tenderness from cervical spine thoracic and lumbar spine Skin: Intact no petechiae rash induration ulceration or crepitus Extremities: Moving all extremity against resistance cap refill less than 2 seconds neurosensory intact Neuro: Awake alert oriented x3 Glascow coma 15 no focal deficits] Course Quality Measures none Orders Category Date Time Status US paracentesis abd w/image Stat Exams 03/27/24 11:31 Completed CBC Stat Lab 03/27/24 11:38 Completed CMP [Comprehensive Metabolic Panel] Stat Lab 03/27/24 11:38 Completed PT [Prothrombin Time with INR] Stat Lab 03/27/24 11:38 Completed PTT [Partial Thromboplastin Time] Stat Lab 03/27/24 11:38 Completed Albumin Human 25% Ivpb [Albuminar-25 Ivpb] Med 03/27/24 13:26 Active 25 gm in 100 ml IV QDAY Lidocaine 1% Pf 30 ml [Xylocaine 1% Pf 30 ml] Med 03/27/24 11:47 Discontinued 30 ml .ROUTE .STK-MED ONE Vital Signs Vital signs: Vital Signs Temperature 98.9 F 03/27/24 11:31 Pulse Rate 109 H 03/27/24 11:31 Respiratory Rate 19 03/27/24 11:31 Blood Pressure 128/82 03/27/24 11:31 Pulse Oximetry (%) 95 03/27/24 11:31 Oxygen Delivery Method Room Air 03/27/24 11:31 [facility] Patient data External records reviewed:: [facility] previous records Clinical information provided by:: patient Social determinants that could affect healthcare access:: none Patient has the following chronic illnesses:: Cirrhosis ascites How is presenting disease/condition affected by chronic disease/condition?: exacerbated by Evaluation data The following diagnostics were reviewed and interpreted by me:: lab results and radiology exam(s) Lab and/or radiology exams considered but not ordered:: Ultrasound shows paracentesis without complication CBC shows no acute leukocytosis anemia thrombocytopenia Coags within acceptable limits CMP shows no significant electrolyte imbalances renal impairment transaminitis or T. bili elevation. Interpretation Summary: After patient's paracentesis abdomen is distended but much more soft, the patient has no shortness of breath. Medications Medications considered but not ordered:: None Medication administrations:: Medication Administration History Albumin Human (Albuminar-25 Ivpb) 25 gm in 100 mls @ 100 mls/hr IV QDAY JAMMIE Stop: 03/30/24 13:25 Last Admin: 03/27/24 14:47 Dose: 100 mls/hr Documented By: BC Discontinued Medications Lidocaine HCl (Lidocaine Inj Pf 1% 30 Ml Vial) Confirm Administered Dose 30 ml .ROUTE .Impactia-MED ONE Stop: 03/27/24 11:48 None Consultations Consultation(s) initiated? (list below): No Diagnosis Differential Diagnosis ED Complaint MDM: Cirrhosis ascites shortness of breath Most likely diagnosis given after review of the tests above:: Ascites paracentesis Admission Indicated Admission indicated?: not indicated Explain why admission is indicated or not indicated:: Stable for discharge Admission Request Was there a request for admission?: No Disposition Plan Disposition Plan: Discharge Discharge Attestation Discharge Attestation: The patient and all family members were given an opportunity to ask questions and understood the discharge instructions. Discharge instructions specifically effects, indications for sooner follow up or return to the emergency department, and the expected course of current diagnosis. Patient condition: Stable Medical Decision Making Differential Diagnosis Differential Diagnosis: Cirrhosis ascites shortness of breath Lab Data 03/27/24 11:38 03/27/24 11:38 Labs: Lab Results 03/27/24 Range/Units 11:38 WBC 7.7 (3.8-10.6) Thou/mm3 RBC 4.74 (4.50-5.90) Miln/mm3 Hgb 13.7 (13.5-16.0) g/dL Hct 40.7 L (41.0-53.0) % MCV 86 (80-100) fL MCH 28.9 (25.0-35.0) pg MCHC 33.7 (31.0-37.0) g/dl RDW Std Deviation 46.7 H (35.1-43.9) fL Plt Count 233 D (140-440) Thou/mm3 Neut % (Auto) 71 (37-80) % Lymph % (Auto) 12 (10-50) % [place] % (Auto) 14 H (0-12) % Eos % (Auto) 1 (0-10) % Baso % (Auto) 1 (0-2.5) % Neut # (Auto) 5.4 (1.8-7.7) Thou/mm3 Lymph # (Auto) 0.9 L (1.0-4.8) Thou/mm3 [place] # (Auto) 1.1 H (0.0-0.8) Thou/mm3 Eos # (Auto) 0.1 (0.0-0.5) Thou/mm3 Baso # (Auto) 0.1 (0.0-0.2) Thou/mm3 Immature Gran # (Auto) 0.02 H (0.00-0.00) Thou/mm3 Absolute Nucleated RBC 0.00 (0.00-0.00) Thou/mm3 Immature Gran % 0 (0-0) % Nucleated RBC % 0 (0) /100 WBC PT 11.5 (9.0-12.2) Seconds INR 1.1 (0.9-1.3) APTT 28.5 (22.0-36.0) Seconds Sodium 132 L (136-145) mMol/L Potassium 3.9 (3.4-5.1) mMol/L Chloride 98 (98-107) mMol/L Carbon Dioxide 27.1 (20.0-31.0) mMol/L Anion Gap 7 (7-16) BUN 8 L (9-23) mg/dL Creatinine 0.5 L (0.6-1.3) mg/dL Estim Creat Clear Calc 161.2 (>60) mL/min eGFR > 60 (60 - ) See Note BUN/Creatinine Ratio 16 (12-20) Ratio Glucose 99 (74-106) mg/dL Calculated Osmolality 262 L (275-295) Calcium 8.5 (8.3-10.6) mg/dL Corrected Calcium 8.8 (8.5-10.1) mg/dL Total Bilirubin 1.2 (0.3-1.2) mg/dL AST 44 H (0-34) U/L ALT 25 (10-49) U/L Alkaline Phosphatase 125 H (46-116) U/L Total Protein 6.2 (5.7-8.2) gm/dL Albumin 3.6 (3.4-4.8) gm/dL Globulin 2.6 (2.3-3.5) gm/dL Albumin/Globulin Ratio 1.4 (1.2-2.2) Discharge Plan Plan Patient Disposition: HOME (Self Care) Patient condition on transfer: Stable Prescriptions/Referrals Prescriptions/Med Rec: No Action naltrexone 50 mg Tablet 50 mg PO QDAY folic acid 1 mg Tablet 1 mg PO BID 60 Days Qty: 120 0RF thiamine mononitrate (vit B1) 100 mg Tablet 100 mg PO BID 60 Days Qty: 120 0RF furosemide [Lasix] 20 mg tablet 20 mg PO QAM Qty: 90 0RF spironolactone 50 mg tablet 50 mg PO QDAY Qty: 90 0RF lactulose 10 gram/15 mL solution 20 g PO BID PRN (Reason: constipation) Qty: 3785 0RF Problem List Clinical Impression: Ascites, S/P abdominal paracentesis Patient/Caregiver Discharge Instructions Education Materials: Paracentesis, ED Ascites Additional Instructions: Follow-up with your primary care try and arrange outpatient paracentesis on a scheduled basis. Print Language: [place] Leonean Stand Alone Forms: Priyanka Award Info., Patient Portal Info Letter, Work/School Release PA/NUCLEAR EQUIPMENT RESEARCH ENGINEER Supervising Physician PA/NUCLEAR EQUIPMENT RESEARCH ENGINEER Supervising Physician: Mamadou Lund ENP
[2024-03-27 16:06] VITALS: BP 108/66; PULSE 85; RESP 18; TEMP 36.7; O2SAT 98
== END 2024-03-27 15:55 | disposition home or self-care (01) ==
PROVIDERS: Nurse Practitioner Family; Emergency Provider Emergency Medicine; PCP Nurse Practitioner Family
DX: K74.60 Unspecified cirrhosis of liver (principal); R18.8 Other ascites
CPT/HCPCS: 49083; 36415; 80053; 85025; 85610; 85730; 96365; 99284; C1729; P9047

== ENCOUNTER 2024-04-06 11:02 | Emergency (ER) | payer MEDICAID, SELFPAY ==
[2024-04-06 11:26] VITALS: BP 109/74; PULSE 100; RESP 16; TEMP 36.8; O2SAT 95; BMI 28.5
--- NOTE | 2024-04-06 11:32 | EDRME_ITS ---
Rapid Medical Screening Exam RME Arrival date/time: 04/06/24 11:02 63-year-old male here with complaints of abdominal ascites here requesting paracentesis. I have greeted and performed a focused initial assessment of this patient. Initial appropriate labs ordered at this time. A comprehensive ED assessment a nd evaluation of the patient and analysis of all test and completion of medical decision making process will be conducted by additional ED provider. Chief Complaint: Abdominal Pain Time Seen by Provider: 04/06/24 11:12 Vital signs: Vital Signs Temperature 98.3 F 04/06/24 11:26 Pulse Rate 100 04/06/24 11:26 Respiratory Rate 16 04/06/24 11:26 Blood Pressure 109/74 04/06/24 11:26 Pulse Oximetry (%) 95 04/06/24 11:26 Oxygen Delivery Method Room Air 04/06/24 11:26
--- NOTE | 2024-04-06 11:32 | XR_ITS ---
Examination: Ultrasound-guided paracentesis Abdominal sonogram limited Date and time of exam: April 06, 2024 1256 hours INDICATIONS: Cirrhosis, increasing ascites and abdominal distention this week Informed consent provided. A timeout was completed verifying correct patient, procedure, site, positioning, and special adequate movement if applicable. Technique: Multiple sonographic images of the abdomen have been obtained. Appropriate area for paracentesis was marked. Local anesthesia is obtained with 1% lidocaine. Yueh catheter is successfully introduced. Findings: Abdominal sonographic images demonstrate sufficient ascitic fluid for paracentesis. After placing the Yueh catheter, 9,600 cc of fluid were successfully removed. During and after completion of the procedure the patient appear in satisfactory and stable condition with no complications observed. Estimated blood loss 0 cc Impression: Abdominal ascites Successful ultrasound-guided paracentesis as described above
[2024-04-06 11:55] LABS: Basophils # (Auto) 0.1 Thou/mm3 (0.0-0.2); Basophils % (Auto) 1 % (0-2.5); Eosinophils # (Auto) 0.1 Thou/mm3 (0.0-0.5); Eosinophils % (Auto) 1 % (0-10); Hematocrit 41.1 % (41.0-53.0); Immature Granulocytes % (Auto) 0 % (0-0); Immature Granulocytes Auto 0.02 Thou/mm3 (0.00-0.00); Lymphocytes # (Auto) 0.8 Thou/mm3 (1.0-4.8); Lymphocytes % (Auto) 12 % (10-50); Mean Corpuscular HGB Conc 34.1 g/dl (31.0-37.0); Mean Corpuscular Hemoglobin 28.5 pg (25.0-35.0); Mean Corpuscular Volume 84 fL (80-100); Monocytes % (Auto) 16 % (0-12); Neutrophils # (Auto) 4.4 Thou/mm3 (1.8-7.7); Neutrophils % (Auto) 69 % (37-80); Nucleated Red Blood Cell % 0 /100 WBC (0); Platelet Count 245 Thou/mm3 (140-440); RDW Standard Deviation 45.2 fL (35.1-43.9); Red Blood Count 4.91 Miln/mm3 (4.50-5.90); White Blood Count 6.3 Thou/mm3 (3.8-10.6)
--- NOTE | 2024-04-06 15:06 | EDNOTE_ITS ---
ED Abdominal Pain RME/HPI General Chief Complaint: Abdominal Pain Stated complaint: NEED FLUID REMOVED FROM STOMACH Time seen by provider: 04/06/24 11:12 Arrival date/time: 04/06/24 11:02 RME / HPI RME / HPI narrative: DR. FERNANDES MAIN ED EVALUATION: 63 year old male with past medical history significant for liver cirrhosis presents to the Emergency Department with complaints of abdominal ascites/ worsening abdominal distention, with discomfort, severity moderate. He is here for paracentesis. No other symptoms reported at this time. Denies any other symptoms at this time. Related Data Home Medications ?Medication ?Instructions ?Recorded ?Confirmed naltrexone 50 mg tablet 50 mg PO QDAY 02/23/2402/22 Previous Rx's ?Medication ?Instructions ?Recorded furosemide 20 mg tablet (Lasix) 20 mg PO QAM #90 tabs 02/24/24 lactulose 10 gram/15 mL oral 20 g (30 mL) PO BID PRN 1 04/26/23 solution constipation #3,785 mL spironolactone 50 mg tablet 50 mg PO QDAY #90 tabs 08/12 Allergies Allergy/AdvReac Type Severity Reaction Status Date / Time No Known Allergies Allergy Verified 04/24/24 11:38 Review of Systems Review of Systems Systems Reviewed: All systems reviewed, normal except as documented Narrative Review of Systems: GEN: No fever, no chills, no weight loss EYES: No discharge, no visual changes, no pain HEENT: No ear pain, no congestion, no sore throat PULM: No shortness of breath, no cough, no congestion CV: No chest pain, no dyspnea on exertion, no palpitations GI: No nausea, no vomiting, no diarrhea, + abdominal ascites/ worsening abdominal distention with discomfort, no constipation : No frequency, no urgency and no dysuria MUSC/SKEL: No joint pain, no back pain SKIN: No rash PSYCH: No hallucinations, no depression HEME/LYMPH: No easy bleeding or bruising tendencies NEURO: No weakness, no headache Past Medical History Past Medical History CARDIAC: Negative Cardiac Disorders or Congestive Heart Failure RESPIRATORY: Negative Chronic Obstructive Pulmonary Disease (COPD) or Asthma GENITOURINARY: Negative Renal Disease ENDOCRINE: Negative Diabetes Mellitus Type 1 or Diabetes Mellitus Type 2 HEMATOLOGIC: Negative Sickle Cell Disease Social History SMOKING STATUS: Heavy (> 1 pack/day) ED Exam Narrative Physical exam: GENERAL APPEARANCE: alert and oriented x 4, well-developed, well-nourished, no acute distress VITALS: All vitals were reviewed and the pulse ox is 95% on room air, which is normal according to my interpretation. HEENT: Normocephalic, atraumatic; pupils equal, round, reactive to light; EOMI; mucous membranes pink, moist; oropharynx clear NECK: Supple LUNGS: CTABL; no wheezes, no rales, no rhonchi HEART: Regular rate, regular rhythm; normal S1, S2; no murmurs ABDOMEN: abdominal distention; normal BS; soft, no tenderness, no guarding, no rebound BACK: no CVA tenderness EXTREMITIES: atraumatic; no edema NEUROLOGIC: awake; alert and oriented x4; cranial nerves II-XII grossly intact; no focal sensory or motor deficits PSYCHIATRIC: appropriate mood and affect SKIN: warm, dry, normal color; no rashes Course Quality Measures none Orders Category Date Time Status US paracentesis abd w/image Stat Exams 04/06/24 11:32 Completed CBC Stat Lab 04/06/24 11:35 Completed Albumin Human 25% Ivpb [Albuminar-25 Ivpb] Med 04/06/24 14:59 Discontinued 12.5 gm in 50 ml IV X1 Albumin Human 25% Ivpb [Albuminar-25 Ivpb] Med 04/06/24 14:59 Discontinued 12.5 gm in 50 ml IV X1 Albumin Human 25% Ivpb [Albuminar-25 Ivpb] Med 04/06/24 14:59 Discontinued 12.5 gm in 50 ml IV X1 Albumin Human 25% Ivpb [Albuminar-25 Ivpb] Med 04/06/24 14:59 Discontinued 12.5 gm in 50 ml IV X1 Albumin Human 25% Ivpb [Albuminar-25 Ivpb] Med 04/06/24 15:00 Discontinued 12.5 gm in 50 ml IV X1 Albumin Human 25% Ivpb [Albuminar-25 Ivpb] Med 04/06/24 15:00 Discontinued 12.5 gm in 50 ml IV X1 Lidocaine 1% Pf 30 ml [Xylocaine 1% Pf 30 ml] Med 04/06/24 12:03 Discontinued 30 ml .ROUTE .STK-MED ONE Reevaluation(s) Reevaluation #1: Went to re-evaluate the patient and no answer. Patient eloped. Time: 15:38 Vital Signs Vital signs: Vital Signs Temperature 98.3 F 04/06/24 11:26 Pulse Rate 100 04/06/24 11:26 Respiratory Rate 16 04/06/24 11:26 Blood Pressure 109/74 04/06/24 11:26 Pulse Oximetry (%) 95 04/06/24 11:26 Oxygen Delivery Method Room Air 04/06/24 11:26 Abdominal Pain MDM MDM Narrative MDM Narrative:: I, Janet Valencia am scribing for and in the presence of Dr. Fernandes. Patient data External records reviewed:: [facility] previous records (Reviewed last ED visit dated 03/27/24, discharged with the following: Ascites) Clinical information provided by:: patient Social determinants that could affect healthcare access:: none Patient has the following chronic illnesses:: liver cirrhosis How is presenting disease/condition affected by chronic disease/condition?: caused by Evaluation data The following diagnostics were reviewed and interpreted by me:: lab results and radiology exam(s) Lab and/or radiology exams considered but not ordered:: none Interpretation Summary: Procedure(s): US paracentesis abd w/image Accession Number(s): [id number] cc: Sergio Ruggiero MD; Ismael Llamas MD; Magda Garcia~ Examination: Ultrasound-guided paracentesis Abdominal sonogram limited Date and time of exam: April 06, 2024 1256 hours INDICATIONS: Cirrhosis, increasing ascites and abdominal distention this week Informed consent provided. A timeout was completed verifying correct patient, procedure, site, positioning, and special adequate movement if applicable. Technique: Multiple sonographic images of the abdomen have been obtained. Appropriate area for paracentesis was marked. Local anesthesia is obtained with 1% lidocaine. Yueh catheter is successfully introduced. Findings: Abdominal sonographic images demonstrate sufficient ascitic fluid for paracentesis. After placing the Yueh catheter, 9,600 cc of fluid were successfully removed. During and after completion of the procedure the patient appear in satisfactory and stable condition with no complications observed. Estimated blood loss 0 cc Impression: Abdominal ascites Successful ultrasound-guided paracentesis as described above Dictated By: Ismael Llamas MD Medications / Prescriptions Medications or Prescriptions considered but not ordered:: none Medication administrations:: Medication Administration History Discontinued Medications Albumin Human (Albuminar-25 Ivpb) 12.5 gm in 50 mls @ 50 mls/hr IV X1 ONE Stop: 04/06/24 15:58 Albumin Human (Albuminar-25 Ivpb) 12.5 gm in 50 mls @ 50 mls/hr IV X1 ONE Stop: 04/06/24 15:58 Albumin Human (Albuminar-25 Ivpb) 12.5 gm in 50 mls @ 50 mls/hr IV X1 ONE Stop: 04/06/24 15:58 Albumin Human (Albuminar-25 Ivpb) 12.5 gm in 50 mls @ 50 mls/hr IV X1 ONE Stop: 04/06/24 15:58 Albumin Human (Albuminar-25 Ivpb) 12.5 gm in 50 mls @ 50 mls/hr IV X1 ONE Stop: 04/06/24 15:59 Albumin Human (Albuminar-25 Ivpb) 12.5 gm in 50 mls @ 50 mls/hr IV X1 ONE Stop: 04/06/24 15:59 Lidocaine HCl (Lidocaine Inj Pf 1% 30 Ml Vial) Confirm Administered Dose 30 ml .ROUTE .STK-MED ONE Stop: 04/06/24 12:04 Last Admin: 04/06/24 15:38 Dose: 30 ml Documented By: C Comments: USED BY RADIOLOGIST see above Consultations Consultation(s) initiated? (list below): No Diagnosis Differential diagnosis abdominal pain: abdominal pain and other (liver cirrhosis, abdominal ascites) Most likely diagnosis given after review of the tests above:: Ascites Admission Indicated Admission indicated?: not indicated Admission Request Was there a request for admission?: No Disposition Plan Disposition Plan: other (specify) (Patient eloped.) Discharge Plan Plan Patient Disposition: Elopement Prescriptions/Referrals Prescriptions/Med Rec: No Action naltrexone 50 mg Tablet 50 mg PO QDAY furosemide [Lasix] 20 mg tablet 20 mg PO QAM Qty: 90 0RF spironolactone 50 mg tablet 50 mg PO QDAY Qty: 90 0RF lactulose 10 gram/15 mL solution 20 g PO BID PRN (Reason: constipation) Qty: 3785 0RF Problem List Clinical Impression: Abdominal pain, Abdominal ascites, Status post abdominal paracentesis Patient/Caregiver Discharge Instructions Education Materials: Paracentesis Print Language: Sami
--- NOTE | 2024-04-06 15:33 | PC.NURSE ---
Call pt from lobby and outside no answer
[2024-04-06] MEDS: LIDOCAINE INJ PF 1% 30 ML VIAL (15:38)
--- NOTE | 2024-04-06 15:38 | PC.NURSE ---
CALLED FROM LOBBY AND NO ANSWER
--- NOTE | 2024-04-06 15:44 | PC.NURSE ---
CALLED FROM LOBBY AND NO ANSWER
== END 2024-04-06 15:44 | disposition left against medical advice (07) ==
PROVIDERS: Nurse Practitioner Primary Care; Emergency Provider Emergency Medicine; PCP Family Medicine
DX: K74.60 Unspecified cirrhosis of liver (principal); R18.8 Other ascites
CPT/HCPCS: 49083; 36415; 85025; 99281; C1729; J3490

== ENCOUNTER 2024-04-24 11:36 | Emergency (ER) | payer MEDICAID, SELFPAY ==
[2024-04-24 11:36] VITALS: BMI 27.1
[2024-04-24 12:32] VITALS: BP 119/84; PULSE 98; RESP 20; TEMP 36.8; O2SAT 97
[2024-04-24 12:33] VITALS: BMI 26.1
--- NOTE | 2024-04-24 12:38 | XR_ITS ---
Examination: Ultrasound-guided paracentesis Abdominal sonogram limited Date and time of exam: April 24, 2024 1431 hours INDICATIONS: Cirrhosis, increasing ascites and abdominal distention this week Informed consent provided. A timeout was completed verifying correct patient, procedure, site, positioning, and special adequate movement if applicable. Technique: Multiple sonographic images of the abdomen have been obtained. Appropriate area for paracentesis was marked. Local anesthesia is obtained with 1% lidocaine. Yueh catheter is successfully introduced. Findings: Abdominal sonographic images demonstrate sufficient ascitic fluid for paracentesis. After placing the Yueh catheter, 7550 cc of fluid were successfully removed. During and after completion of the procedure the patient appear in satisfactory and stable condition with no complications observed. Estimated blood loss 0 cc Impression: Abdominal ascites Successful ultrasound-guided paracentesis as described above
--- NOTE | 2024-04-24 12:38 | EKG_ITS ---
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
--- NOTE | 2024-04-24 12:38 | XR_ITS ---
Examination: PA lateral chest 2 views TECHNIQUE: Upright PA lateral chest 2 views Exam date and time: April 24, 2024 1245 hours INDICATIONS: Coughing shortness of breath today FINDINGS: Normal heart size No pneumonia or pulmonary edema The osseous structures are intact IMPRESSION: No active disease
--- NOTE | 2024-04-24 12:39 | PD.EDRME ---
Rapid Medical Screening Exam RME Arrival date/time: 04/24/24 11:36 63-year-old male presents emergency department requesting paracentesis patient was reports dizziness and weight loss Chief Complaint: Abdominal Pain Vital signs: Vital Signs Temperature 98.2 F 04/24/24 12:32 Pulse Rate 98 04/24/24 12:32 Respiratory Rate 20 04/24/24 12:32 Blood Pressure 119/84 04/24/24 12:32 Pulse Oximetry (%) 97 04/24/24 12:32 Oxygen Delivery Method Room Air 04/24/24 12:32
[2024-04-24 13:35] LABS: Basophils # (Auto) 0.1 Thou/mm3 (0.0-0.2); Basophils % (Auto) 0 % (0-2.5); Eosinophils % (Auto) 0 % (0-10); Hematocrit 39.3 % (41.0-53.0); Hemoglobin 13.5 g/dL (13.5-16.0); Immature Granulocytes % (Auto) 0 % (0-0); Immature Granulocytes Auto 0.05 Thou/mm3 (0.00-0.00); Lymphocytes # (Auto) 0.4 Thou/mm3 (1.0-4.8); Lymphocytes % (Auto) 3 % (10-50); Mean Corpuscular HGB Conc 34.4 g/dl (31.0-37.0); Mean Corpuscular Hemoglobin 27.4 pg (25.0-35.0); Mean Corpuscular Volume 80 fL (80-100); Monocytes # (Auto) 0.8 Thou/mm3 (0.0-0.8); Monocytes % (Auto) 7 % (0-12); Neutrophils # (Auto) 10.1 Thou/mm3 (1.8-7.7); Neutrophils % (Auto) 89 % (37-80); Nucleated Red Blood Cell % 0 /100 WBC (0); Platelet Count 247 Thou/mm3 (140-440); RDW Standard Deviation 44.8 fL (35.1-43.9); Red Blood Count 4.92 Miln/mm3 (4.50-5.90); White Blood Count 11.4 Thou/mm3 (3.8-10.6)
[2024-04-24 13:52] LABS: B-Type Natriuretic Peptide 61 pg/mL (0-100)
[2024-04-24 13:55] LABS: Alanine Aminotransferase 23 U/L (10-49); Albumin, Serum 3.5 gm/dL (3.4-4.8); Albumin/Globulin Ratio 1.1 (1.2-2.2); Alkaline Phosphatase 111 U/L (46-116); Anion Gap 8 (7-16); Aspartate Amino Transferase 29 U/L (0-34); BUN/Creatinine Ratio 15 Ratio (12-20); Bilirubin,Total 1.8 mg/dL (0.3-1.2); Blood Urea Nitrogen 9 mg/dL (9-23); Calcium 8.4 mg/dL (8.3-10.6); Calcium (Corrected) 8.8 mg/dL (8.5-10.1); Carbon Dioxide 26.3 mMol/L (20.0-31.0); Chloride 93 mMol/L (98-107); Creatinine (Component) 0.6 mg/dL (0.6-1.3); Estimated Creatinine Clearance 116.7 mL/min (>60); Globulin 3.1 gm/dL (2.3-3.5); Glucose 78 mg/dL (74-106); Osmolality,Calculated 252 (275-295); Potassium 3.8 mMol/L (3.4-5.1); Sodium 127 mMol/L (136-145); Total Protein 6.6 gm/dL (5.7-8.2); Troponin I < 0.002 ng/mL (0.0-0.045); eGFR > 60 See Note
[2024-04-24 14:11] LABS: Partial Thromboplastin Time 29.5 Seconds (22.0-36.0); Prothrombin Time 11.4 Seconds (9.0-12.2)
[2024-04-24 22:41] VITALS: BP 100/64; PULSE 81; RESP 17; TEMP 36.9; O2SAT 97
--- NOTE | 2024-04-24 22:57 | EDNOTE_ITS ---
ED Abdominal Pain RME/HPI General Chief Complaint: Abdominal Pain Stated complaint: NEED PARACENTESIS Time seen by provider: 04/24/24 23:14 Arrival date/time: 04/24/24 11:36 Limitations: no limitations RME / HPI RME / HPI narrative: 04/24/24 11:36 63-year-old male presents emergency department requesting paracentesis patient was reports dizziness and weight loss ---- Dr. Chew's Main ED Evaluation: 63yo male with a history of cirrhosis presents to the ED for a chief complaint of abdominal pain and distention. Patient states he has had similar symptoms in the past and has needed a paracentesis. As of 2315 when I saw the patient, he states he feels significantly better and does not have any other symptoms. Denies any fever, chills, N/V or any other associated symptoms. No known allergies. Related Data Home Medications ?Medication ?Instructions ?Recorded ?Confirmed naltrexone 50 mg tablet 50 mg PO QDAY 02/23/2402/22 Previous Rx's ?Medication ?Instructions ?Recorded furosemide 20 mg tablet (Lasix) 20 mg PO QAM #90 tabs 02/24/24 lactulose 10 gram/15 mL oral 20 g (30 mL) PO BID PRN 1 04/26/23 solution constipation #3,785 mL spironolactone 50 mg tablet 50 mg PO QDAY #90 tabs 08/12 Allergies Allergy/AdvReac Type Severity Reaction Status Date / Time No Known Allergies Allergy Verified 04/24/24 11:38 Review of Systems Review of Systems Systems Reviewed: All systems reviewed, normal except as documented Past Medical History Past Medical History CARDIAC: Negative Cardiac Disorders or Congestive Heart Failure RESPIRATORY: Negative Chronic Obstructive Pulmonary Disease (COPD) or Asthma GENITOURINARY: Negative Renal Disease ENDOCRINE: Negative Diabetes Mellitus Type 1 or Diabetes Mellitus Type 2 HEMATOLOGIC: Negative Sickle Cell Disease Social History SMOKING STATUS: Never smoker ED Exam General Limitations: Present no limitations General appearance: Present alert and in no apparent distress Head Head exam: Present atraumatic Eye Eye exam: Present normal appearance, PERRL and EOMI ENT ENT exam: Present normal exam, normal oropharynx and mucous membranes moist Neck Neck exam: Present normal inspection, full ROM and trachea midline Chest Chest inspection: Present normal inspection and symmetric chest wall rise Respiratory Respiratory exam: Present normal lung sounds bilaterally Cardiovascular Cardiovascular exam: Present regular rate, normal rhythm and normal heart sounds Abdominal Exam Abdominal exam: Present soft; Absent distention Extremities Exam Extremities exam: Present normal inspection and full ROM Back Exam Back exam: Present normal inspection and full ROM Neurological Exam Neurological exam: Present alert, oriented X3 and CN II-XII intact Psychiatric Psychiatric exam: Present normal affect and normal mood Skin Skin exam: Present warm, dry, intact and normal color Course Course Course Narrative: CXR is ordered for determining the etiology of abdominal pain. Quality Measures none Orders Category Date Time Status EKG (ED ONLY) *Do not use* NOW Care 04/24/24 12:38 Completed EKG (ED Only) Stat Exams 04/24/24 12:38 Draft US paracentesis abd w/image Stat Exams 04/24/24 12:38 Completed XR chest 2V Stat Exams 04/24/24 12:38 Completed BNP [B-Type Natriuretic Peptide] Stat Lab 04/24/24 13:05 Completed CBC Stat Lab 04/24/24 13:05 Completed Comprehensive Metabolic Panel Stat Lab 04/24/24 13:05 Completed Partial Thromboplastin Time Stat Lab 04/24/24 13:05 Completed Prothrombin Time with INR Stat Lab 04/24/24 13:05 Completed Troponin I Stat Lab 04/24/24 13:05 Completed Lidocaine 1% Pf 30 ml [Xylocaine 1% Pf 30 ml] Med 04/24/24 14:15 Discontinued 30 ml .ROUTE .STK-MED ONE Vital Signs Vital signs: Vital Signs Temperature 98.2 F 04/24/24 12:32 Pulse Rate 98 04/24/24 12:32 Respiratory Rate 20 04/24/24 12:32 Blood Pressure 119/84 04/24/24 12:32 Pulse Oximetry (%) 97 04/24/24 12:32 Oxygen Delivery Method Room Air 04/24/24 12:32 Pulse ox is 97% on room air, which is normal according to my interpretation. Abdominal Pain MDM Patient data External records reviewed:: [facility] previous records (Per chart review, patient was seen here on 04/06/24 for the same complaint.) Clinical information provided by:: patient Social determinants that could affect healthcare access:: none Patient has the following chronic illnesses:: cirrhosis How is presenting disease/condition affected by chronic disease/condition?: caused by Evaluation data The following diagnostics were reviewed and interpreted by me:: lab results and radiology exam(s) Lab and/or radiology exams considered but not ordered:: none Interpretation Summary: WBC count is 11.4, PT and INR are normal, PTT is normal, Sodium is 127, troponin is normal, BNP is normal, EKG done at 1243, NSR, rate of 91, low voltage, no ST elevations or depressions, no STEMI, according to my interpretation. ------ [facility] Report Signed Patient: MICHAELLE BEAN [facility]. Record#: [id number] Birthdate: 1960 Age/Sex: 63 / M Location: [facility] Attending Dr: Ordering Physician: Earlene STEIN)Shaji NP Date of Service: 04/24/24 Procedure(s): XR chest 2V Accession Number(s): [id number] cc: Earlene STEIN)Shaji NP; Ismael Llamas MD~ Examination: PA lateral chest 2 views TECHNIQUE: Upright PA lateral chest 2 views Exam date and time: April 24, 2024 1245 hours INDICATIONS: Coughing shortness of breath today FINDINGS: Normal heart size No pneumonia or pulmonary edema The osseous structures are intact IMPRESSION: No active disease Dictated By: Ismael Llamas MD Signed By: <Electronically signed by Ismael Llamas MD in OV> 04/24/24 1306 [facility] Report Signed Patient: MICHAELLE BEAN [facility] Record#: [id number] Birthdate: 1960 Age/Sex: 63 / M Location: [facility] Attending Dr: Ordering Physician: Earlene STEIN)Shaji NP Date of Service: 04/24/24 Procedure(s): US paracentesis abd w/image Accession Number(s): [id number] cc: Wilner Dailey; Shaji Henao NP, NP; Ismael Llamas MD~ Examination: Ultrasound-guided paracentesis Abdominal sonogram limited Date and time of exam: April 24, 2024 1431 hours INDICATIONS: Cirrhosis, increasing ascites and abdominal distention this week Informed consent provided. A timeout was completed verifying correct patient, procedure, site, positioning, and special adequate movement if applicable. Technique: Multiple sonographic images of the abdomen have been obtained. Appropriate area for paracentesis was marked. Local anesthesia is obtained with 1% lidocaine. Yueh catheter is successfully introduced. Findings: Abdominal sonographic images demonstrate sufficient ascitic fluid for paracentesis. After placing the Yueh catheter, 7550 cc of fluid were successfully removed. During and after completion of the procedure the patient appear in satisfactory and stable condition with no complications observed. Estimated blood loss 0 cc Impression: Abdominal ascites Successful ultrasound-guided paracentesis as described above Dictated By: Ismael Llamas MD Signed By: <Electronically signed by Ismael Llamas MD in OV> 04/24/24 1535 Medications / Prescriptions Medications or Prescriptions considered but not ordered:: none Medication administrations:: Medication Administration History Discontinued Medications Lidocaine HCl (Lidocaine Inj Pf 1% 30 Ml Vial) Confirm Administered Dose 30 ml .ROUTE .STK-MED ONE Stop: 04/24/24 14:16 Last Admin: 04/24/24 21:00 Dose: Not Given Documented By: SF Non-Admin Reason: Override Medication see above Consultations Consultation(s) initiated? (list below): No Diagnosis Differential diagnosis abdominal pain: other (worsening cirrhosis, liver CA, ascites, abdominal pain) Most likely diagnosis given after review of the tests above:: see below Admission Indicated Admission indicated?: not indicated Admission Request Was there a request for admission?: No Disposition Plan Disposition Plan: Discharge Discharge Attestation Discharge Attestation: The patient and all family members were given an opportunity to ask questions and understood the discharge instructions. Discharge instructions specifically effects, indications for sooner follow up or return to the emergency department, and the expected course of current diagnosis. Patient condition: Stable Discharge Plan Plan Patient Disposition: HOME (Self Care) Patient condition on transfer: Stable Prescriptions/Referrals Prescriptions/Med Rec: No Action naltrexone 50 mg Tablet 50 mg PO QDAY furosemide [Lasix] 20 mg tablet 20 mg PO QAM Qty: 90 0RF spironolactone 50 mg tablet 50 mg PO QDAY Qty: 90 0RF lactulose 10 gram/15 mL solution 20 g PO BID PRN (Reason: constipation) Qty: 3785 0RF Problem List Clinical Impression: Hx of cirrhosis Patient/Caregiver Discharge Instructions Education Materials: Paracentesis Dc Additional Instructions: Please follow-up with primary care physician as scheduled and/or return for your scheduled paracentesis per your primary care physician. Return to the emergency department for any worsening symptoms, fever, you cannot eat or drink, or any other concerns. Print Language: Greek Stand Alone Forms: Priyanka Award Info., Patient Portal Info Letter
== END 2024-04-24 23:35 | disposition home or self-care (01) ==
PROVIDERS: Nurse Practitioner Primary Care; Emergency Provider Emergency Medicine; PCP Nurse Practitioner Family
DX: K74.60 Unspecified cirrhosis of liver (principal); R18.8 Other ascites
CPT/HCPCS: 49083; 36415; 71046; 80053; 83880; 84484; 85025; 85610; 85730; 93005; 99284; C1729

== ENCOUNTER 2024-06-26 11:08 | Emergency (ER) | payer MEDICAID, SELFPAY ==
[2024-06-26 11:09] VITALS: BMI 26.6
[2024-06-26 11:20] VITALS: BP 122/66; PULSE 91; RESP 18; TEMP 36.3; O2SAT 97
--- NOTE | 2024-06-26 11:33 | XR_ITS ---
Examination: CT abdomen and pelvis without contrast. Coronal 3-D reconstructions. Sagittal 2-D reconstructions. Date and time of exam:July 06, 2024 1331 hours Comparison February 22, 2024 INDICATIONS: History abdominal pain and swelling today CTDI: vol (mGy): 7.1 DLP: (mGycm): 410 Technique: Axial images of the abdomen have been obtained, 3 mm slice thickness Intravenous contrast material has not been administered. Low dose protocols were performed. One or more of the following dose reduction techniques were used; automated exposure control, adjustment of the mA and/or KV according to patient size, use of iterative reconstruction technique. Findings: Cirrhosis, liver nodular in contour Significant ascites No gallstones Spleen not enlarged No pancreatic or adrenal mass No renal or ureteral calculi, no hydronephrosis Fluid-containing 17 mm umbilical hernia Urinary bladder wall shows significant thickening up to 17 mm Prominent lumbar spondylosis, moderate disc narrowing L5-S1 IMPRESSION: Cirrhosis Significant ascites Fluid-containing 17 mm umbilical hernia No bowel obstruction Abnormal thickening of the urinary bladder wall, recommend urinary bladder sonography follow-up
--- NOTE | 2024-06-26 11:33 | PD.EDRME ---
Rapid Medical Screening Exam E Arrival date/time: 06/26/24 11:08 64-year-old male with a history of cirrhosis presents to the emergency room with a chief complaint of 10 out of 10 pain to his umbilical hernia. Patient states he has had this hernia for the last 2 months but the last 2 days his pain has progressively gotten worse. I have greeted and performed a focused initial assessment of this patient. A comprehensive ED assessment and evaluation of the patient, analysis of all test results, and completion of the medical decision making process will be conducted by additional ED providers. Chief Complaint: Abdominal Pain Vital signs: Vital Signs Temperature 97.4 F 06/26/24 11:20 Pulse Rate 91 06/26/24 11:20 Respiratory Rate 18 06/26/24 11:20 Blood Pressure 122/66 06/26/24 11:20 Pulse Oximetry (%) 97 06/26/24 11:20 Oxygen Delivery Method Room Air 06/26/24 11:20 Vital signs reviewed by provider: Yes
[2024-06-26 12:08] LABS: Basophils # (Auto) 0.1 Thou/mm3 (0.0-0.2); Basophils % (Auto) 1 % (0-2.5); Eosinophils # (Auto) 0.1 Thou/mm3 (0.0-0.5); Eosinophils % (Auto) 2 % (0-10); Hematocrit 40.1 % (41.0-53.0); Hemoglobin 13.2 g/dL (13.5-16.0); Immature Granulocytes % (Auto) 0 % (0-0); Immature Granulocytes Auto 0.02 Thou/mm3 (0.00-0.00); Lymphocytes # (Auto) 1.2 Thou/mm3 (1.0-4.8); Lymphocytes % (Auto) 17 % (10-50); Mean Corpuscular HGB Conc 32.9 g/dl (31.0-37.0); Mean Corpuscular Volume 85 fL (80-100); Monocytes # (Auto) 0.9 Thou/mm3 (0.0-0.8); Monocytes % (Auto) 14 % (0-12); Neutrophils # (Auto) 4.3 Thou/mm3 (1.8-7.7); Neutrophils % (Auto) 65 % (37-80); Nucleated Red Blood Cell % 0 /100 WBC (0); Platelet Count 221 Thou/mm3 (140-440); RDW Standard Deviation 55.5 fL (35.1-43.9); Red Blood Count 4.72 Miln/mm3 (4.50-5.90); White Blood Count 6.7 Thou/mm3 (3.8-10.6)
[2024-06-26 12:28] LABS: Alanine Aminotransferase 16 U/L (10-49); Albumin/Globulin Ratio 1.3 (1.2-2.2); Alkaline Phosphatase 111 U/L (46-116); Anion Gap 7 (7-16); Aspartate Amino Transferase 23 U/L (0-34); BUN/Creatinine Ratio 17 Ratio (12-20); Blood Urea Nitrogen 10 mg/dL (9-23); Carbon Dioxide 27.2 mMol/L (20.0-31.0); Chloride 98 mMol/L (98-107); Creatinine (Component) 0.6 mg/dL (0.6-1.3); Estimated Creatinine Clearance 115.2 mL/min (>60); Globulin 3.1 gm/dL (2.3-3.5); Glucose 86 mg/dL (74-106); Lipase 29 U/L (12-53); Osmolality,Calculated 262 (275-295); Potassium 4.1 mMol/L (3.4-5.1); Sodium 132 mMol/L (136-145); Total Protein 7.1 gm/dL (5.7-8.2); eGFR > 60 See Note
[2024-06-26 15:33] VITALS: BP 124/79; PULSE 83; RESP 18; TEMP 36.6; O2SAT 98
[2024-06-26 15:58] LABS: Collection Type, Urine Clean Catch; Squamous Epithelial Cell,Urine 0 /hpf (0-5)
[2024-06-26 16:04] LABS: Bilirubin,Urine Negative (Negative); Blood,Urine Negative (Negative); Clarity,Urine Clear (Clear/Hazy); Color,Urine Lt-Yellow (Lt Yel-Yel); Glucose, Urine Negative (Negative); Ketones,Urine Negative (Negative); Leukocyte Esterase,Urine Negative (Negative); Nitrite,Urine Negative (Negative); Protein,Urine Negative (Neg - Trace); RBC,Urine 3 /hpf (0-3); Urobilinogen,Urine Negative mg/dL (0.0-1.0); WBC,Urine 1 /hpf (0-5)
--- NOTE | 2024-06-26 16:20 | PD.EDABDPN ---
ED Abdominal Pain RME/HPI General Chief Complaint: Abdominal Pain Stated complaint: UMBILICAL HERNIA PAIN Arrival date/time: 06/26/24 11:08 RME / HPI RME / HPI narrative: 06/26/24 11:08 64-year-old male with a history of cirrhosis presents to the emergency room with a chief complaint of 10 out of 10 pain to his umbilical hernia. Patient states he has had this hernia for the last 2 months but the last 2 days his pain has progressively gotten worse. I have greeted and performed a focused initial assessment of this patient. A comprehensive ED assessment and evaluation of the patient, analysis of all test results, and completion of the medical decision making process will be conducted by additional ED providers. DR. FERNANDES MAIN ED EVALUATION: 64 year old male with past medical history significant for liver cirrhosis from from former alcohol abuse, umbilical hernia, presents to the Emergency Department with complaint of abdominal pain. He states he has been struggling to lift stuff at work due to the umbilical hernia for the last 4 months. States his PCP ordered him an abdominal binder which he has not received. Related Data Home Medications ?Medication ?Instructions ?Recorded ?Confirmed naltrexone 50 mg tablet 50 mg PO QDAY 02/23/24 02/23/24 Previous Rx's ?Medication ?Instructions ?Recorded furosemide 20 mg tablet (Lasix) 20 mg PO QAM #90 tabs 02/24/24 lactulose 10 gram/15 mL oral 20 g (30 mL) PO BID PRN 02/24/24 solution constipation #3,785 mL spironolactone 50 mg tablet 50 mg PO QDAY #90 tabs 02/24/24 Allergies Allergy/AdvReac Type Severity Reaction Status Date / Time No Known Allergies Allergy Verified 06/26/24 11:09 Review of Systems Review of Systems Systems Reviewed: All systems reviewed, normal except as documented Past Medical History Social History SMOKING STATUS: Current every day smoker SUBSTANCE USE: does not use ALCOHOL: Former ED Exam Narrative Physical exam: GENERAL APPEARANCE: alert and oriented x 4, well-developed, well-nourished, no acute distress, not tachypneic VITALS: All vitals were reviewed and the pulse ox is 98% on room air, which is normal according to my interpretation. HEENT: Normocephalic, atraumatic; pupils equal, round, reactive to light; EOMI; mucous membranes pink, moist; oropharynx clear NECK: Supple LUNGS: CTABL; no wheezes, no rales, no rhonchi HEART: Regular rate, regular rhythm; normal S1, S2; no murmurs ABDOMEN: ascites; normal BS; soft, no tenderness, no guarding, no rebound; there is a soft umbilical hernia that is easily reducible BACK: no CVA tenderness EXTREMITIES: atraumatic; no edema NEUROLOGIC: awake; alert and oriented x4; cranial nerves II-XII grossly intact; no focal sensory or motor deficits PSYCHIATRIC: appropriate mood and affect SKIN: warm, dry, normal color; no rashes Course Quality Measures none Orders Category Date Time Status CT abdomen pelvis wo con Stat Exams 06/26/24 11:33 Completed CBC Stat Lab 06/26/24 11:55 Completed CMP [Comprehensive Metabolic Panel] Stat Lab 06/26/24 11:55 Completed Lipase Stat Lab 06/26/24 11:55 Completed UA [Urinalysis] Stat Lab 06/26/24 15:54 Completed Urine Culture Stat Lab 06/26/24 15:54 Received Vital Signs Vital signs: Vital Signs Temperature 97.4 F 06/26/24 11:20 Pulse Rate 91 06/26/24 11:20 Respiratory Rate 18 06/26/24 11:20 Blood Pressure 122/66 06/26/24 11:20 Pulse Oximetry (%) 97 06/26/24 11:20 Oxygen Delivery Method Room Air 06/26/24 11:20 Procedures -ED Procedure Comment An abdominal binder placed. Abdominal Pain MDM MDM Narrative MDM Narrative:: I, Janet Valencia, chio scribing for and in the presence of Dr. Fernandes. Patient data External records reviewed:: [facility] previous records (Reviewed last ED visit dated 04/24/24, discharged with the following: Hx of cirrhosis) Clinical information provided by:: patient Social determinants that could affect healthcare access:: alcohol use (former) Patient has the following chronic illnesses:: liver cirrhosis from from former alcohol abuse, umbilical hernia How is presenting disease/condition affected by chronic disease/condition?: exacerbated by Evaluation data The following diagnostics were reviewed and interpreted by me:: lab results and radiology exam(s) Lab and/or radiology exams considered but not ordered:: none Interpretation Summary: Procedure(s): CT abdomen pelvis wo con Accession Number(s): [id number] cc: Wilner Dailey; Aki Ruelas; Ismael Llamas MD~ Examination: CT abdomen and pelvis without contrast. Coronal 3-D reconstructions. Sagittal 2-D reconstructions. Date and time of exam:July 06, 2024 1331 hours Comparison February 22, 2024 INDICATIONS: History abdominal pain and swelling today CTDI: vol (mGy): 7.1 DLP: (mGycm): 410 Technique: Axial images of the abdomen have been obtained, 3 mm slice thickness Intravenous contrast material has not been administered. Low dose protocols were performed. One or more of the following dose reduction techniques were used; automated exposure control, adjustment of the mA and/or KV according to patient size, use of iterative reconstruction technique. Findings: Cirrhosis, liver nodular in contour Significant ascites No gallstones Spleen not enlarged No pancreatic or adrenal mass No renal or ureteral calculi, no hydronephrosis Fluid-containing 17 mm umbilical hernia Urinary bladder wall shows significant thickening up to 17 mm Prominent lumbar spondylosis, moderate disc narrowing L5-S1 IMPRESSION: Cirrhosis Significant ascites Fluid-containing 17 mm umbilical hernia No bowel obstruction Abnormal thickening of the urinary bladder wall, recommend urinary bladder sonography follow-up Dictated By: Ismael Llamas MD Medications / Prescriptions Medications or Prescriptions considered but not ordered:: none Medication administrations:: see above if any Consultations Consultation(s) initiated? (list below): No Diagnosis Differential diagnosis abdominal pain: abdominal pain and other (ascites, umbilical hernia) Most likely diagnosis given after review of the tests above:: Abdominal ascites Umbilical hernia Admission Indicated Admission indicated?: not indicated Admission Request Was there a request for admission?: No Disposition Plan Disposition Plan: Discharge Discharge Attestation Discharge Attestation: The patient and all family members were given an opportunity to ask questions and understood the discharge instructions. Discharge instructions specifically effects, indications for sooner follow up or return to the emergency department, and the expected course of current diagnosis. Patient condition: Stable Discharge Plan Plan Patient Disposition: HOME (Self Care) Prescriptions/Referrals Prescriptions/Med Rec: No Action naltrexone 50 mg Tablet 50 mg PO QDAY furosemide [Lasix] 20 mg tablet 20 mg PO QAM Qty: 90 0RF spironolactone 50 mg tablet 50 mg PO QDAY Qty: 90 0RF lactulose 10 gram/15 mL solution 20 g PO BID PRN (Reason: constipation) Qty: 3785 0RF Referrals: Wilner Dailey FNP [Primary Care Provider] - In 1 week Problem List Clinical Impression: Abdominal ascites, Umbilical hernia Patient/Caregiver Discharge Instructions Education Materials: ED Ascites, ED Hernia (Adult) Print Language: German Stand Alone Forms: Priyanka Award Info., Patient Portal Info Letter
== END 2024-06-26 17:13 | disposition home or self-care (01) ==
PROVIDERS: Nurse Practitioner Family; Emergency Provider Emergency Medicine; PCP Nurse Practitioner Family
DX: K42.9 Umbilical hernia without obstruction or gangrene (principal); K74.60 Unspecified cirrhosis of liver; R18.8 Other ascites
CPT/HCPCS: 36415; 74176; 80053; 81001; 83690; 85025; 87086; 99284

== ENCOUNTER 2024-09-01 10:20 | Day surgery (SDC) | payer MEDICAID, SELFPAY ==
[2024-08-31 06:40] VITALS: BMI 24.7
[2024-08-31 08:49] LABS: Alanine Aminotransferase 26 U/L (10-49); Albumin, Serum 4.7 gm/dL (3.4-4.8); Albumin/Globulin Ratio 1.6 (1.2-2.2); Alkaline Phosphatase 120 U/L (46-116); Anion Gap 10 (7-16); BUN/Creatinine Ratio 13 Ratio (12-20); Bilirubin,Total 1.1 mg/dL (0.3-1.2); Blood Urea Nitrogen 9 mg/dL (9-23); Calcium 9.8 mg/dL (8.3-10.6); Calcium (Corrected) 9.8 mg/dL (8.5-10.1); Carbon Dioxide 29.4 mMol/L (20.0-31.0); Chloride 100 mMol/L (98-107); Creatinine (Component) 0.7 mg/dL (0.6-1.3); Estimated Creatinine Clearance 98.7 mL/min (>60); Glucose 75 mg/dL (74-106); Osmolality,Calculated 275 (275-295); Potassium 3.9 mMol/L (3.4-5.1); Sodium 139 mMol/L (136-145); Total Protein 7.7 gm/dL (5.7-8.2); eGFR > 60 See Note
[2024-08-31 08:51] LABS: Basophils # (Auto) 0.1 Thou/mm3 (0.0-0.2); Basophils % (Auto) 1 % (0-2.5); Eosinophils # (Auto) 0.2 Thou/mm3 (0.0-0.5); Eosinophils % (Auto) 3 % (0-10); Hematocrit 45.3 % (41.0-53.0); Hemoglobin 15.7 g/dL (13.5-16.0); Immature Granulocytes % (Auto) 1 % (0-0); Immature Granulocytes Auto 0.05 Thou/mm3 (0.00-0.00); Lymphocytes # (Auto) 1.4 Thou/mm3 (1.0-4.8); Lymphocytes % (Auto) 21 % (10-50); Mean Corpuscular HGB Conc 34.7 g/dl (31.0-37.0); Mean Corpuscular Volume 87 fL (80-100); Monocytes # (Auto) 0.8 Thou/mm3 (0.0-0.8); Monocytes % (Auto) 12 % (0-12); Neutrophils # (Auto) 4.3 Thou/mm3 (1.8-7.7); Neutrophils % (Auto) 63 % (37-80); Nucleated Red Blood Cell % 0 /100 WBC (0); Platelet Count 215 Thou/mm3 (140-440); RDW Standard Deviation 54.5 fL (35.1-43.9); Red Blood Count 5.24 Miln/mm3 (4.50-5.90); White Blood Count 6.9 Thou/mm3 (3.8-10.6)
[2024-08-31 09:02] LABS: Partial Thromboplastin Time 28.2 Seconds (22.0-36.0); Prothrombin Time 11.1 Seconds (9.0-12.2)
[2024-09-01] VITALS (7 sets, daily range): BP systolic 106–123; BP diastolic 70–76; PULSE 66–78; RESP 14–20; TEMP 36.4–36.7; O2SAT 98–100; BMI 24.3
--- NOTE | 2024-09-01 10:51 | SUR.PREOP ---
Patient expressed gratitude for prayer before their procedure.
--- NOTE | 2024-09-01 13:57 | SUR.PHASEI ---
7029 Patient arrived to recovery, awake and talking with staff, on oxygen 4L via oxy mask, breathing unlabored, vital signs stable, denies pain, dressing intact to abdomen; sutures, adaptic, gauze, medipore tape, no bleeding noted, denies nausea, report received from Flora SIMMONS and Dr. Barron
--- NOTE | 2024-09-01 14:03 | PD.SUROPNT ---
Date of Procedure 09/01/24 Pre Op Diagnosis Symptomatic umbilical hernia Post Op Diagnosis Same Procedure Repair of the umbilical hernia with primary closure Findings Patient is found to have a defect which is 2 cm in width and was circular Procedure Description After the patient was brought to the operating room endotracheal anesthesia was given. Abdomen was prepped with ChloraPrep solution and draped in sterile manner. Timeout was performed. Limited curved incision over the upper portion of the umbilicus and dissected out the skin using Jimmy retractors. I was able to enter into the sac which had no contents. I excised the sac and identified the fascial defect clearly I defined the fascial edges. Because of the history of ascites I did not want to use any mesh implantation even though he could take 1 small mesh for the repair. I decided to primarily approximate the fascia with sutures and I did that with 3 interrupted sutures of 0 Ethibond. The subcutaneous tissue was closed with 3-0 plain and the skin with 4-0 Monocryl. Dressing Stanley was applied after Adaptic and 4 x 4 gauze and patient tolerates procedure well. Anesthesia GETA Pathology / specimen None Estimated Blood Loss 20 Surgeon Mckenzie Hensley MD Surgical Staff Operation Date: 09/01/24 12:30 Case Staff Anesthesiologist: Kenneth Barron RN First Assistant: Lorin Sky
--- NOTE | 2024-09-01 14:57 | SUR.PHASEII ---
1457 Patient meets discharge criteria from recovery, awake and alert, breathing unlabored, vital signs stable, denies pain, dressing intact; no bleeding noted, patient ate a jello, pudding, apple sauce, everton crackers and peanut butter and drinking fluids, denies nausea, able to dress himself into his clothing, discharge instructions given to patient and patients friend with the assistance of the telephone faculty support coordinator Adia ANTHONY, patient friend signed discharge instructions. Patient given all his belongings prior to discharge, transported via wheelchair and left in a private vehicle.
== END 2024-09-01 14:57 | disposition home or self-care (01) ==
PROVIDERS: PCP Family Medicine; Referring Provider Surgery; Visit Provider Surgery
PROC: (CPT 49591; principal; 2024-09-01 12:15)
DX: K42.9 Umbilical hernia without obstruction or gangrene (principal)
CPT/HCPCS: 49591; 36415; 80053; 85025; 85610; 85730; A4217; A4649; J2250; J2704; J3010; J3490